=== PATIENT | male | born 1960 | race Caucasian/White ===

== ENCOUNTER 2020-05-18 14:28 | Emergency (ER) | payer MEDICARE, MEDICAID ==
[2020-05-18 14:36] VITALS: BP 164/84; PULSE 98
[2020-05-18] MEDS ORDERED: Aspirin 81 MG Tab.Chew PO ONE (14:39)
--- NOTE | 2020-05-18 14:44 | EDM.PDOC ---
ED HPI GENERAL MEDICAL PROBLEM - General Chief Complaint: Chest Pain Stated Complaint: [facility] Time Seen by Provider: 05/18/20 14:30 Source of Information: Reports: Patient (Very little history was obtained from the patient is all the answers were yes.), EMS, [facility] Records History Limitations: Reports: Altered Mental Status (And appears to have underlying dementia.) - History of Present Illness INITIAL COMMENTS - FREE TEXT/NARRATIVE: History suggest that approximately 35 minutes before arriving in the ED he developed or complained of central chest pain left precordial chest pain rating up into his neck and left upper extremity. The history was provided primarily by the nursing staff at the senior care not by the patient I could not get this history from the patient at this time. He still states that he still have some central chest pain. There is no history to suggest fever chills cough. Paramedics appreciated that he was diaphoretic particular with beads of perspiration on his forehead. ECG done by triage staff reveals sinus rhythm at 96/min with a first-degree AV block and minimally prolonged QTc interval but no signs of ischemia. Onset: Today, Sudden Onset Date: 05/18/20 Onset Time: 13:45 Duration: Minutes:, Other (Patient claims he still has discomfort on interrogation. However he claims that he has pain in his neck pain in his arm pain in his back as well.) Location: Reports: Chest (Reportedly complains of central chest pain radiation to his left upper extremity.) Quality: Reports: Ache Severity: Moderate Improves with: Reports: None Worsens with: Reports: None Context: Denies: Activity, Exercise, Sick Contact, Trauma, Other Associated Symptoms: Reports: Chest Pain, Diaphoresis. 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: IV/IO, Other (see below) (He has received no medications.) - Related Data Allergies Allergy/AdvReac Type Severity Reaction Status Date / Time acetaminophen [From Tylenol] Allergy Severe Facial Verified 05/18/20 14:36 Swelling Penicillins Allergy Severe Facial Verified 05/18/20 14:36 Swelling naproxen [From Aleve] Allergy Mild Cannot Verified 05/18/20 17:03 Remember Home Meds: Home Meds metFORMIN [Glucophage] 1,000 mg PO BID 10/26/16 [History] Losartan [Cozaar] 100 mg PO DAILY 01/24/19 [History] atorvaSTATin [Lipitor] 20 mg PO BEDTIME 01/26/19 [History] Aspirin [Adult Low Dose Aspirin EC] 81 mg PO DAILY 05/18/20 [History] Calcium Carbonate [Tums] 500 mg PO BID 05/18/20 [History] [place]/Min Oil/[place]/Wool Alcoh [Eucerin Creme] 1 applic TOP BID 05/18/20 [History] Cholecalciferol (Vitamin D3) [Vitamin D3] 1,000 unit PO DAILY 05/18/20 [History] Furosemide [Lasix] 20 mg PO DAILY 05/18/20 [History] Ibuprofen 600 mg PO Q6HR PRN 05/18/20 [History] Insulin Aspart [NovoLOG] 3 unit SQ TIDMEALS 05/18/20 [History] Insulin Detemir [Levemir] 20 unit SUBCUT DAILY 05/18/20 [History] LORazepam [Ativan] 0.5 mg PO BID 05/18/20 [History] Magnesium Hydroxide [Milk of Magnesia] 30 ml PO BEDTIME 05/18/20 [History] Melatonin 9 mg PO BEDTIME 05/18/20 [History] Mirtazapine [Remeron] 7.5 mg PO BEDTIME 05/18/20 [History] Multivit-Min/FA/Lycopen/Lutein [Certavite Sr with Lutein Tab] 1 each PO DAILY 05/18/20 [History] Pyrithione Zinc [Selsun Blue] 1 applic TP DAILY 05/18/20 [History] bisacodyL [Dulcolax] 5 mg PO BID 05/18/20 [History] levoFLOXacin [Levaquin] 500 mg PO DAILY #9 tab 05/18/20 [Rx] polyethylene glycoL 3350 [MiraLAX] 17 gm PO DAILY PRN 05/18/20 [History] risperiDONE [Risperdal] 3 mg PO BEDTIME 05/18/20 [History] Past Medical History HEENT History: Reports: None Cardiovascular History: Reports: Hypertension Respiratory History: Reports: None Gastrointestinal History: Reports: None Genitourinary History: Reports: None Musculoskeletal History: Reports: None Neurological History: Reports: None Psychiatric History: Reports: None Endocrine/Metabolic History: Reports: Diabetes, Type II (Trolled with Victoza, insulin and metformin and diet.) Hematologic History: Reports: None Immunologic History: Reports: None Oncologic (Cancer) History: Reports: None Dermatologic History: Reports: None - Infectious Disease History Infectious Disease History: Reports: Chicken Pox, Measles, Mumps - Past Surgical History Head Surgeries/Procedures: Reports: None HEENT Surgical History: Reports: None Cardiovascular Surgical History: Reports: None Respiratory Surgical History: Reports: None GI Surgical History: Reports: None Male Surgical History: Reports: None Endocrine Surgical History: Reports: None Neurological Surgical History: Reports: None Other Musculoskeletal Surgeries/Procedures:: ORIF of Right Foot. Brace in place Oncologic Surgical History: Reports: None Dermatological Surgical History: Reports: None Social & Family History - Family History Family Medical History: Noncontributory - Caffeine Use Caffeine Use: Reports: Soda - Living Situation & Occupation Living situation: Reports: with Family, Single Occupation: Disabled ED ROS GENERAL - Review of Systems Review Of Systems: Unable To Obtain Reason Not Obtained: History obtained from the patient is is a very poor quality he is Constitutional: Reports: Malaise, Weakness, Fatigue, Decreased Appetite. Denies: Fever, Chills, Weight Loss HEENT: Reports: No Symptoms Respiratory: Reports: Shortness of Breath. Denies: Wheezing, Pleuritic Chest Pain, Cough Cardiovascular: Reports: Chest Pain, Blood Pressure Problem. Denies: Claudication (See history of present illness), Dyspnea on Exertion, Edema, Lightheadedness, Orthopnea Endocrine: Reports: Fatigue GI/Abdominal: Reports: Constipation : Reports: Frequency Musculoskeletal: Reports: Back Pain, Joint Pain (Knees hips shoulders at times) Skin: Reports: Bruising (Injections of Victoza and insulin) Neurological: Reports: Confusion (Apparently has a history of dementia.) Psychiatric: Reports: Anxiety, Depression Hematologic/Lymphatic: Reports: No Symptoms Immunologic: Reports: No Symptoms ED EXAM, GENERAL - Physical Exam Exam: See Below Exam Limited By: Altered Mental Status (Patient appears confused and suffering from dementia. He does not answer any questions with any degree of reliability. Answers yes to almost all questions.) General Appearance: Alert, WD/WN, No Apparent Distress, Other (Mildly pallid but is diaphoretic on his forehead. No one has checked his blood sugar yet and he has a type II diabetic treated with Victoza and insulin and metformin.) Eye Exam: Bilateral Eye: Normal Inspection, PERRL Throat/Mouth: Normal Inspection, Normal Lips (1 is mildly dry and coated), Normal Oropharynx, Other. No: Normal Teeth Head: Atraumatic, Normocephalic Neck: Normal Inspection, Supple, Non-Tender, Full Range of Motion. No: Carotid Bruit, Lymphadenopathy (L) Respiratory/Chest: No Respiratory Distress, No Accessory Muscle Use, Decreased Breath Sounds (Decreased air entry lower 30% of lung beltran bilaterally. Mild dullness to percussion on both lower lobes suggesting perhaps mild pleural effusions.), Rales. No: Respiratory Distress, Rhonchi, Wheezing (Data rales both lung bases.) Cardiovascular: Regular Rate, Rhythm, No Gallop, No Murmur, No Rub. No: Normal Peripheral Pulses, No Edema Peripheral Pulses: 1+: Posterior Tibial (L) (Extremity pulses are limited by), Posterior Tibial (R), Dorsalis Pedis (L), Dorsalis Pedis (R), 2+: Carotid (L), Carotid (R) GI/Abdominal: Normal Bowel Sounds, Soft, Non-Tender, No Organomegaly, No Abnormal Bruit, No Mass, Pelvis Stable Back Exam: Normal Inspection, Full Range of Motion, Other (No surgical scars abrasions or contusions.). No: CVA Tenderness (L), CVA Tenderness (R) Extremities: Pedal Edema (He has 4+ pitting edema up past the knees bilaterally. Right leg is slightly worse than the left.), Other (Evidence of osteoarthritic changes in both knees both hips). No: Normal Range of Motion Neurological: CN II-XII Intact, No Motor/Sensory Deficits. No: Oriented, Normal Cognition Psychiatric: Flat Affect (Was all limbs.) Skin Exam: Warm, Dry, Intact, Pallor, Other (No pallor. Has beads of sweat on his forehead.) EKG INTERPRETATION EKG Date: 05/18/20 Time: 14:34 Rhythm: NSR Rate (Beats/Min): 96 [place]: Normal P-Wave: Present (With first-degree AV block) QT: Prolonged (Minimally prolonged) EKG Interpretation Comments: Borderline ECG. No signs of ischemia Course - Vital Signs Last Recorded V/S: Last Vital Signs Temp 36.6 C 05/18/20 14:31 Pulse 98 05/18/20 14:31 Resp 14 05/18/20 14:31 BP 164/84 H 05/18/20 14:31 Pulse Ox 98 05/18/20 14:31 - Orders/Labs/Meds Orders: Active Orders 24 hr Category Date Time Status Blood Glucose Check, Bedside [RC] ONETIME Care 05/18/20 14:47 Active Oxygen Therapy [RC] ASDIRECTED Care 05/18/20 14:41 Active Chest 1V Frontal [CR] Stat Exams 05/18/20 14:40 Taken CULTURE URINE [RM] Routine Lab 05/18/20 15:10 Received Sodium Chloride 0.9% [Normal Saline] 1,000 ml Med 05/18/20 14:45 Active IV ASDIRECTED Medication Orders Sodium Chloride (Normal Saline) 1,000 mls @ 125 mls/hr IV ASDIRECTED CHRIS Last Admin: 05/18/20 14:56 Dose: 125 mls/hr Documented by: ZARA Labs: Laboratory Tests 05/18/20 05/18/20 05/18/20 Range/Units 15:01 15:05 15:05 WBC 6.98 (4.23-9.07) K/mm3 RBC 4.27 L (4.63-6.08) M/mm3 Hgb 12.7 L (13.7-17.5) gm/dl Hct 40.2 (40.1-51.0) % MCV 94.1 H (79.0-92.2) fl MCH 29.7 (25.7-32.2) pg MCHC 31.6 L (32.2-35.5) g/dl RDW Std Deviation 44.3 H (35.1-43.9) fL Plt Count 223 (163-337) K/mm3 MPV 9.9 (9.4-12.3) fl Neut % (Auto) 76.4 H (34.0-67.9) % Lymph % (Auto) 14.3 L (21.8-53.1) % [place] % (Auto) 7.3 (5.3-12.2) % Eos % (Auto) 1.4 (0.8-7.0) Baso % (Auto) 0.3 (0.1-1.2) % Neut # (Auto) 5.33 (1.78-5.38) K/mm3 Lymph # (Auto) 1.00 L (1.32-3.57) K/mm3 [place] # (Auto) 0.51 (0.30-0.82) K/mm3 Eos # (Auto) 0.10 (0.04-0.54) K/mm3 Baso # (Auto) 0.02 (0.01-0.08) K/mm3 PT 11.1 (9.7-11.7) SECONDS INR 1.04 APTT 25 (22-31) SECONDS Sodium (136-145) mEq/L Potassium (3.5-5.1) mEq/L Chloride (98-107) mEq/L Carbon Dioxide (21-32) mEq/L Anion Gap (5-15) BUN (7-18) mg/dL Creatinine (0.7-1.3) mg/dL Est Cr Clr Drug Dosing mL/min Estimated GFR (MDRD) (>60) mL/min BUN/Creatinine Ratio (14-18) Glucose (74-106) mg/dL POC Glucose 166 H (70-105) mg/dL Calcium (8.5-10.1) mg/dL Magnesium (1.8-2.4) mg/dl Total Bilirubin (0.2-1.0) mg/dL AST (15-37) U/L ALT (16-63) U/L Alkaline Phosphatase (46-116) U/L CK-MB (CK-2) (0-3.6) ng/ml Troponin I (0.00-0.056) ng/mL C-Reactive Protein (<1.0) mg/dL NT-Pro-B Natriuret Pep (0-125) pg/mL Total Protein (6.4-8.2) g/dl Albumin (3.4-5.0) g/dl Globulin gm/dL Albumin/Globulin Ratio (1-2) Urine Color (Yellow) Urine Appearance (Clear) Urine pH (5.0-8.0) Ur Specific [place] (1.005-1.030) Urine Protein (Negative) Urine Glucose (UA) (Negative) Urine Ketones (Negative) Urine Occult Blood (Negative) Urine Nitrite (Negative) Urine Bilirubin (Negative) Urine Urobilinogen (0.2-1.0) Ur Leukocyte Esterase (Negative) Urine RBC (0-5) /hpf Urine WBC (0-5) /hpf Urine WBC Clumps (NOT SEEN) /hpf Ur Squamous Epith Cells (0-5) /hpf Urine Bacteria (FEW) /hpf Urine Mucus (FEW) /hpf SARS-CoV-2 RNA (CHRIS) (NEGATIVE) 05/18/20 05/18/20 05/18/20 Range/Units 15:05 15:05 15:12 WBC (4.23-9.07) K/mm3 RBC (4.63-6.08) M/mm3 Hgb (13.7-17.5) gm/dl Hct (40.1-51.0) % MCV (79.0-92.2) fl MCH (25.7-32.2) pg MCHC (32.2-35.5) g/dl RDW Std Deviation (35.1-43.9) fL Plt Count (163-337) K/mm3 MPV (9.4-12.3) fl Neut % (Auto) (34.0-67.9) % Lymph % (Auto) (21.8-53.1) % [place] % (Auto) (5.3-12.2) % Eos % (Auto) (0.8-7.0) Baso % (Auto) (0.1-1.2) % Neut # (Auto) (1.78-5.38) K/mm3 Lymph # (Auto) (1.32-3.57) K/mm3 [place] # (Auto) (0.30-0.82) K/mm3 Eos # (Auto) (0.04-0.54) K/mm3 Baso # (Auto) (0.01-0.08) K/mm3 PT (9.7-11.7) SECONDS INR APTT (22-31) SECONDS Sodium 139 (136-145) mEq/L Potassium 3.9 (3.5-5.1) mEq/L Chloride 100 (98-107) mEq/L Carbon Dioxide 27 (21-32) mEq/L Anion Gap 15.9 H (5-15) BUN 22 H (7-18) mg/dL Creatinine 0.9 (0.7-1.3) mg/dL Est Cr Clr Drug Dosing 95.80 mL/min Estimated GFR (MDRD) > 60 (>60) mL/min BUN/Creatinine Ratio 24.4 H (14-18) Glucose 192 H (74-106) mg/dL POC Glucose (70-105) mg/dL Calcium 8.6 (8.5-10.1) mg/dL Magnesium 1.9 (1.8-2.4) mg/dl Total Bilirubin 0.4 (0.2-1.0) mg/dL AST 16 (15-37) U/L ALT 27 (16-63) U/L Alkaline Phosphatase 77 (46-116) U/L CK-MB (CK-2) 1.2 (0-3.6) ng/ml Troponin I < 0.017 (0.00-0.056) ng/mL C-Reactive Protein < 0.2 (<1.0) mg/dL NT-Pro-B Natriuret Pep 59 (0-125) pg/mL Total Protein 7.8 (6.4-8.2) g/dl Albumin 3.7 (3.4-5.0) g/dl Globulin 4.1 gm/dL Albumin/Globulin Ratio 0.9 L (1-2) Urine Color Yellow (Yellow) Urine Appearance Cloudy H (Clear) Urine pH 7.5 (5.0-8.0) Ur Specific [place] 1.020 (1.005-1.030) Urine Protein Trace H (Negative) Urine Glucose (UA) Negative (Negative) Urine Ketones Negative (Negative) Urine Occult Blood Trace-intact H (Negative) Urine Nitrite Negative (Negative) Urine Bilirubin Negative (Negative) Urine Urobilinogen 0.2 (0.2-1.0) Ur Leukocyte Esterase 3+ H (Negative) Urine RBC 0-5 (0-5) /hpf Urine WBC >100 H (0-5) /hpf Urine WBC Clumps Few (NOT SEEN) /hpf Ur Squamous Epith Cells 0-5 (0-5) /hpf Urine Bacteria Few (FEW) /hpf Urine Mucus Few (FEW) /hpf SARS-CoV-2 RNA (CHRIS) (NEGATIVE) 05/18/20 Range/Units 15:12 WBC (4.23-9.07) K/mm3 RBC (4.63-6.08) M/mm3 Hgb (13.7-17.5) gm/dl Hct (40.1-51.0) % MCV (79.0-92.2) fl MCH (25.7-32.2) pg MCHC (32.2-35.5) g/dl RDW Std Deviation (35.1-43.9) fL Plt Count (163-337) K/mm3 MPV (9.4-12.3) fl Neut % (Auto) (34.0-67.9) % Lymph % (Auto) (21.8-53.1) % [place] % (Auto) (5.3-12.2) % Eos % (Auto) (0.8-7.0) Baso % (Auto) (0.1-1.2) % Neut # (Auto) (1.78-5.38) K/mm3 Lymph # (Auto) (1.32-3.57) K/mm3 [place] # (Auto) (0.30-0.82) K/mm3 Eos # (Auto) (0.04-0.54) K/mm3 Baso # (Auto) (0.01-0.08) K/mm3 PT (9.7-11.7) SECONDS INR APTT (22-31) SECONDS Sodium (136-145) mEq/L Potassium (3.5-5.1) mEq/L Chloride (98-107) mEq/L Carbon Dioxide (21-32) mEq/L Anion Gap (5-15) BUN (7-18) mg/dL Creatinine (0.7-1.3) mg/dL Est Cr Clr Drug Dosing mL/min Estimated GFR (MDRD) (>60) mL/min BUN/Creatinine Ratio (14-18) Glucose (74-106) mg/dL POC Glucose (70-105) mg/dL Calcium (8.5-10.1) mg/dL Magnesium (1.8-2.4) mg/dl Total Bilirubin (0.2-1.0) mg/dL AST (15-37) U/L ALT (16-63) U/L Alkaline Phosphatase (46-116) U/L CK-MB (CK-2) (0-3.6) ng/ml Troponin I (0.00-0.056) ng/mL C-Reactive Protein (<1.0) mg/dL NT-Pro-B Natriuret Pep (0-125) pg/mL Total Protein (6.4-8.2) g/dl Albumin (3.4-5.0) g/dl Globulin gm/dL Albumin/Globulin Ratio (1-2) Urine Color (Yellow) Urine Appearance (Clear) Urine pH (5.0-8.0) Ur Specific [place] (1.005-1.030) Urine Protein (Negative) Urine Glucose (UA) (Negative) Urine Ketones (Negative) Urine Occult Blood (Negative) Urine Nitrite (Negative) Urine Bilirubin (Negative) Urine Urobilinogen (0.2-1.0) Ur Leukocyte Esterase (Negative) Urine RBC (0-5) /hpf Urine WBC (0-5) /hpf Urine WBC Clumps (NOT SEEN) /hpf Ur Squamous Epith Cells (0-5) /hpf Urine Bacteria (FEW) /hpf Urine Mucus (FEW) /hpf SARS-CoV-2 RNA (CHRIS) Negative (NEGATIVE) Meds: Medications Generic Name Dose Route Start Last Admin Trade Name Raheel PRN Reason Stop Dose Admin Sodium Chloride 1,000 mls @ 125 mls/hr 05/18/20 14:45 05/18/20 14:56 Normal Saline IV 125 mls/hr ASDIRECTED CHRIS Administration Discontinued Medications Generic Name Dose Route Start Last Admin Trade Name Raheel PRN Reason Stop Dose Admin Aspirin 324 mg 05/18/20 14:39 05/18/20 14:56 Aspirin PO 05/18/20 14:40 324 mg ONETIME ONE Administration Nitroglycerin/Dextrose 25 mg in 250 mls @ 6 mls/hr 05/18/20 14:45 05/18/20 14:56 Nitroglycerin 25 Mg/D5w 250 Ml IV 10 mcg/min TITRATE CHRIS 6 mls/hr Administration Protocol 10 MCG/MIN Levofloxacin/Dextrose 750 mg/ 150 mls @ 100 mls/hr 05/18/20 16:47 05/18/20 17:04 Premix IV 05/18/20 18:16 100 mls/hr ONETIME ONE Administration - Radiology Interpretation Free Text/Narrative:: 60-year-old male sent across from [facility] for evaluation of reported central chest pain rating up into his left shoulder and down his left arm. Patient is a very poor historian and no significant information could be gleaned from the patient. He does have some beads of sweat on his forehead. He is an insulin-dependent diabetic no one has bothered to check his blood sugars. ECG does not show any signs of acute ischemic change. Plan he will have a chest x-ray routine labs including cardiac markers performed. IV is D5 normal saline at 125 mils per hour. Blood sugar to be checked at this time. He will not receive aspirin or nitroglycerin until I am convinced he is suffering any cardiac injury. - Re-Assessments/Exams Free Text/Narrative Re-Assessment/Exam: 05/18/20 15:23 rest x-ray reveals mildly hyperinflated lung beltran bilaterally. Perhaps a small right-sided pleural effusion evident. The left hemidiaphragm is more elevated than normal. Cardiac silhouette is normal. No pleural pulmonary infiltrates or pneumothorax evident. Bedside blood sugar was reportedly 166. 05/18/20 15:27White count is 6.98 with 76.4% neutrophils on the auto differential. Hemoglobin is 12.7 with hematocrit of 40.2. MCV is slightly elevated at 94.1. Platelet count normal at 223,000. 05/18/20 15:58 Sodium 139 with potassium 3.9. Chloride 100 with a bicarb of 27. Anion gap is 15.9. BUN is 22 with a creatinine of 0.9 and a GFR greater than 60. BUN/creatinine ratio is mildly elevated at 24.4 suggesting mild volume depletion. Glucose 192. It was 166 at the bedside. Calcium is 8.6 with a magnesium of 1.9. Liver function normal CK-MB fraction is 1.2. Troponin I is less than 0.017. C-reactive protein less than 0.2 total protein 7.8 with an albumin fraction of 3.7. Therefore no clinical evidence of myocardial infarction 05/18/20 16:23 Urinalysis came back showing cloudy urine with a trace of protein and a trace of occult blood leukocyte Estrace is 3+ positive. Micro is pending COVID-19 screen came back negative. 05/18/20 16:45 The microanalysis of the urinalysis shows 0-5 RBCs but greater than 100 blood cells per high-power field with white blood cell clumps. Urine will be sent for culture patient is allergic to penicillin with apparently a fairly significant reaction. He will therefore be placed on Levaquin 750 mg IV. 05/18/20 18:08 vital signs reveal BP 133/78. Heart rate is 108 and is sinus rythm. Oxygen O2 sats 95 to 96% on room air. Additively he will be discharged back to the senior care since it appears he will be able to keep down oral antibiotic therapy. He will be started on Levaquin 500 mg once daily for another 9 days. Departure - Departure Time of Disposition: 18:48 Disposition: Home, Self-Care 01 Reason for Transfer *Q: Other Condition: Fair Clinical Impression: Urinary tract infection after immobility Prescriptions: levoFLOXacin [Levaquin] 500 mg PO DAILY #9 tab Instructions: Urinary Tract Infection, Adult, [id number] Referrals: PCP,None [Primary Care Provider] - Forms: ED Department Discharge Additional Instructions: Evaluation in the emergency room today in regards to reported chest pain. However history is difficult to obtain as the patient says yes to all questions answered of him. This includes pain in his elbow and nape of his neck as well as his chest and arm. Investigations revealed no evidence of cardiac related illness. ECG was sinus with no signs of ischemia. However further investigations revealed he does have a significant urinary tract infection with greater than 1 greater than 100 white blood cells per high-power field suggesting upper urinary tract infection. Initial dose of antibiotics were Levaquin 750 mg given intravenously while in the ED. He is not clinically dehydrated. He is COVID-19 screen came back negative. Therefore he will be discharged back to the senior care with plans to continue oral antibiotic Levaquin 500 mg by mouth once daily at suppertime for the next 9 days to clear up urinary tract infection. Courage plenty of fluids. Diet as tolerated to new Tylenol 650 mg every 4-6 hours necessary for fever relief. Sepsis Event Note (ED) - Evaluation Sepsis Screening Result: No Definite Risk - Focused Exam Vital Signs: Vital Signs Temp Pulse Resp BP Pulse Ox 05/18/20 14:31 36.6 C 98 14 164/84 H 98 - My Orders Last 24 Hours: My Active Orders 05/18/20 14:40 Chest 1V Frontal [CR] Stat 05/18/20 14:41 Oxygen Therapy [RC] ASDIRECTED 05/18/20 14:45 Sodium Chloride 0.9% [Normal Saline] 1,000 ml IV ASDIRECTED 05/18/20 14:47 Blood Glucose Check, Bedside [RC] ONETIME 05/18/20 15:10 CULTURE URINE [RM] Routine - Assessment/Plan Last 24 Hours: My Active Orders 05/18/20 14:40 Chest 1V Frontal [CR] Stat 05/18/20 14:41 Oxygen Therapy [RC] ASDIRECTED 05/18/20 14:45 Sodium Chloride 0.9% [Normal Saline] 1,000 ml IV ASDIRECTED 05/18/20 14:47 Blood Glucose Check, Bedside [RC] ONETIME 05/18/20 15:10 CULTURE URINE [RM] Routine
[2020-05-18] MEDS ORDERED: Sodium Chloride 0.9% 1,000 ML IV SCH (14:45)
[2020-05-18] MEDS ORDERED: Nitroglycerin/D5W 25 MG/250 ML BOTTLE IV SCH (14:45)
[2020-05-18] MEDS ORDERED: Levofloxacin/Dextrose 5%-Water 750 MG in Premix Bag 1 BAG IV ONE (16:47)
== END 2020-05-18 19:22 | disposition home or self-care (01) ==
LOC: JD.ED 14:28
DX: N39.0 Urinary tract infection, site not specified (principal); I10 Essential (primary) hypertension; E11.9 Type 2 diabetes mellitus without complications; F03.90 Unspecified dementia, unspecified severity, without behavioral disturbance, psychotic disturbance, mood disturbance, and anxiety; Z20.828 Contact with and (suspected) exposure to other viral communicable diseases; Z88.6 Allergy status to analgesic agent; Z88.0 Allergy status to penicillin; Z79.82 Long term (current) use of aspirin; Z79.4 Long term (current) use of insulin; Z79.899 Other long term (current) drug therapy
CPT/HCPCS: 36415; 71045; 80053; 81001; 82553; 82962; 83735; 83880; 84484; 85025; 85610; 85730; 86140; 87086; 87088; 87181; 87184; 96365; 96366; 96367; 99285; A9270; J1956; J3490; J7030; U0002; 93010; 99284

== ENCOUNTER 2020-06-21 23:24 | Emergency (ER) | payer MEDICARE, MEDICAID ==
--- NOTE | 2020-06-21 23:49 | EDM.PDOC ---
ED HPI GENERAL MEDICAL PROBLEM - General Chief Complaint: Fever Stated Complaint: [facility] Time Seen by Provider: 06/21/20 23:34 Source of Information: Reports: Patient, Shelter Records, RN Notes Reviewed History Limitations: Reports: Altered Mental Status (minimal patient input) - History of Present Illness INITIAL COMMENTS - FREE TEXT/NARRATIVE: Mr. Vergara is a very pleasant 60-year-old gentleman who is now brought to the ED by EMS from [facility] psychiatric unit with a report of sudden onset of fever, tachycardia, and weakness, tonight. Unfortunately, the patient is essentially nonverbal, and cannot provide any meaningful information. We are notified that the patient has tested negative for the SARS-CoV-2 virus in the past, however, he was recently tested, with results still pending. We are notified that another resident at the patient's halfway has tested positive for the virus. Here in the ED, the patient is found to be tachycardic at 119 bpm, tachypneic at 29 rpm, febrile at 101.1 degrees, with an oxygen saturation of 91% on room air. Due to the patient's dementia, his review of systems is unobtainable. The patient's PCP is Dr. Hugh Pruett. - Related Data Allergies Allergy/AdvReac Type Severity Reaction Status Date / Time acetaminophen [From Tylenol] Allergy Severe Facial Verified 06/21/20 23:34 Swelling Penicillins Allergy Severe Facial Verified 06/21/20 23:34 Swelling naproxen [From Aleve] Allergy Mild Cannot Verified 06/21/20 23:34 Remember Home Meds: Home Meds metFORMIN [Glucophage] 1,000 mg PO BID 10/26/16 [History] Losartan [Cozaar] 100 mg PO DAILY 01/24/19 [History] atorvaSTATin [Lipitor] 20 mg PO BEDTIME 01/26/19 [History] Aspirin [Adult Low Dose Aspirin EC] 81 mg PO DAILY 05/18/20 [History] Calcium Carbonate [Tums] 500 mg PO BID 05/18/20 [History] [place]/Min Oil/Maria Esther/Wool Alcoh [Eucerin Creme] 1 applic TOP BID 05/18/20 [History] Cholecalciferol (Vitamin D3) [Vitamin D3] 1,000 unit PO DAILY 05/18/20 [History] Furosemide [Lasix] 20 mg PO DAILY 05/18/20 [History] Ibuprofen 600 mg PO Q6HR PRN 05/18/20 [History] Insulin Aspart [NovoLOG] 3 unit SQ TIDMEALS 05/18/20 [History] Insulin Detemir [Levemir] 20 unit SUBCUT DAILY 05/18/20 [History] LORazepam [Ativan] 0.5 mg PO TID 05/18/20 [History] Magnesium Hydroxide [Milk of Magnesia] 30 ml PO BEDTIME 05/18/20 [History] Melatonin 9 mg PO BEDTIME 05/18/20 [History] Mirtazapine [Remeron] 7.5 mg PO BEDTIME 05/18/20 [History] Multivit-Min/FA/Lycopen/Lutein [Certavite Sr with Lutein Tab] 1 each PO DAILY 05/18/20 [History] Pyrithione Zinc [Selsun Blue] 1 applic TP DAILY 05/18/20 [History] bisacodyL [Dulcolax] 5 mg PO BID 05/18/20 [History] polyethylene glycoL 3350 [MiraLAX] 17 gm PO DAILY PRN 05/18/20 [History] risperiDONE [Risperdal] 2 mg PO BID 05/18/20 [History] Past Medical History Cardiovascular History: Reports: High Cholesterol, Hypertension Neurological History: Reports: Alzheimers Disease Psychiatric History: Reports: Anxiety Endocrine/Metabolic History: Reports: Diabetes, Type II (Trolled with Victoza, insulin and metformin and diet.) - Infectious Disease History Infectious Disease History: Reports: Chicken Pox, Measles, Mumps - Past Surgical History Musculoskeletal Surgical History: Reports: ORIF (right foot) Social & Family History - Family History Family Medical History: No Pertinent Family History - Caffeine Use Caffeine Use: Reports: Soda - Living Situation & Occupation Living situation: Reports: Single, Extended Care Facility (Formerly [facility]) Occupation: Disabled ED ROS GENERAL - Review of Systems Review Of Systems: Unable To Obtain Reason Not Obtained: Dementia ED EXAM, GENERAL - Physical Exam Exam: See Below Exam Limited By: No Limitations General Appearance: WD/WN, No Apparent Distress, Lethargic (opens eyes when his name is called) Eye Exam: Bilateral Eye: EOMI, Normal Inspection Ears: Normal External Exam, Hearing Grossly Normal Nose: Normal Inspection Throat/Mouth: Normal Inspection, Normal Lips, No Airway Compromise Head: Atraumatic, Normocephalic Neck: Normal Inspection, Full Range of Motion. No: Lymphadenopathy (L), Lymphadenopathy (R) Respiratory/Chest: No Respiratory Distress, Lungs Clear, Normal Breath Sounds, No Accessory Muscle Use Cardiovascular: Normal Peripheral Pulses, No Gallop, No JVD, No Murmur, No Rub, Tachycardia (regular) Peripheral Pulses: 3+: Radial (L), Radial (R) GI/Abdominal: Normal Bowel Sounds, Soft, Non-Tender, No Organomegaly, No Distention, No Abnormal Bruit, No Mass Extremities: Normal Range of Motion, Normal Capillary Refill, Other (1-2+ pretibial pitting edema bilaterally) Neurological: No Motor/Sensory Deficits, Other (The patient opens his eyes when his name is called. He nodded "yes" and "no" to some questions, although did not speak to me. I believe he had spoken to Nora PEDROZA prior to my entering his room.) Skin Exam: Warm (feels febrile), Dry, Intact, Normal Color, No Rash #1 Interpretation EKG Date: 06/21/20 Time: 23:56 Rhythm: Other (Sinus tachycardia) Rate (Beats/Min): 113 [place]: Normal P-Wave: Present QRS: Other (Early transition) ST-T: Normal QT: Normal Comparison: No Change (05/18/2020) Course - Vital Signs Last Recorded V/S: Last Vital Signs Temp 38.4 C H 06/22/20 03:37 Pulse 112 H 06/22/20 03:37 Resp 18 06/22/20 03:37 BP 125/68 06/22/20 03:37 Pulse Ox 92 L 06/22/20 03:37 - Orders/Labs/Meds Orders: Active Orders 24 hr Category Date Time Status Chest 1V Frontal [CR] Stat Exams 06/21/20 23:36 Taken CULTURE BLOOD [BC] Stat Lab 06/21/20 23:42 Received CULTURE BLOOD [BC] Stat Lab 06/21/20 23:42 Received CULTURE URINE [RM] Stat Lab 06/22/20 01:20 Received Blood Culture x2 Reflex Set [OM.PC] Stat Oth 06/21/20 23:42 Ordered Isolation [COMM] Routine Oth 06/21/20 23:45 Ordered Labs: Laboratory Tests 11/05/3106/21/20 06/21/20 Range/Units 23:41 23:44 23:44 WBC 7.46 (4.23-9.07) K/mm3 RBC 4.09 L (4.63-6.08) M/mm3 Hgb 12.1 L (13.7-17.5) gm/dl Hct 38.1 L (40.1-51.0) % MCV 93.2 H (79.0-92.2) fl MCH 29.6 (25.7-32.2) pg MCHC 31.8 L (32.2-35.5) g/dl RDW Std Deviation 44.9 H (35.1-43.9) fL Plt Count 189 (163-337) K/mm3 MPV 9.7 (9.4-12.3) fl Neutrophils % (Manual) 83 H (40-60) % Band Neutrophils % 7 (0-10) % Lymphocytes % (Manual) 4 L (20-40) % Atypical Lymphs % 0 % Monocytes % (Manual) 6 (2-10) % Eosinophils % (Manual) 0 L (0.8-7.0) % Basophils % (Manual) 0 L (0.2-1.2) Platelet Estimate Adequate Plt Morphology Comment Normal RBC Morph Comment Normal ESR (0-15) mm/hr D-Dimer, Quantitative (0.19-0.50) mg/L Puncture Site Lt radial ABG pH 7.46 H (7.35-7.45) ABG pCO2 36.6 (35.0-45.0) mmHg ABG pO2 64.0 L (80.0-100.0) mmHg ABG HCO3 25.8 (22.0-26.0) meq/L ABG O2 Saturation 92.3 L (96.0-97.0) % ABG Base Excess 2.5 H (-2-2.0) A-a Gradient 40 mmHg O2 Delivery Device Room air Oxygen Flow Rate 0.0 FiO2 21.00 (21.00-100.00) % Sodium 138 (136-145) mEq/L Potassium 4.0 (3.5-5.1) mEq/L Chloride 101 (98-107) mEq/L Carbon Dioxide 27 (21-32) mEq/L Anion Gap 14.0 (5-15) BUN 21 H (7-18) mg/dL Creatinine 1.0 (0.7-1.3) mg/dL Est Cr Clr Drug Dosing 86.22 mL/min Estimated GFR (MDRD) > 60 (>60) mL/min BUN/Creatinine Ratio 21.0 H (14-18) Glucose 141 H (74-106) mg/dL Lactic Acid (0.4-2.0) mmol/L Calcium 9.3 (8.5-10.1) mg/dL Magnesium 2.1 (1.8-2.4) mg/dl Total Bilirubin 0.5 (0.2-1.0) mg/dL AST 16 (15-37) U/L ALT 21 (16-63) U/L Alkaline Phosphatase 74 (46-116) U/L Troponin I < 0.017 (0.00-0.056) ng/mL C-Reactive Protein 2.8 H* (<1.0) mg/dL Total Protein 7.7 (6.4-8.2) g/dl Albumin 3.8 (3.4-5.0) g/dl Globulin 3.9 gm/dL Albumin/Globulin Ratio 1.0 (1-2) Urine Color (Yellow) Urine Appearance (Clear) Urine pH (5.0-8.0) Ur Specific [place] (1.005-1.030) Urine Protein (Negative) Urine Glucose (UA) (Negative) Urine Ketones (Negative) Urine Occult Blood (Negative) Urine Nitrite (Negative) Urine Bilirubin (Negative) Urine Urobilinogen (0.2-1.0) Ur Leukocyte Esterase (Negative) Urine RBC (0-5) /hpf Urine WBC (0-5) /hpf Ur Epithelial Cells (0-5) /hpf Urine Bacteria (FEW) /hpf Urine Mucus (FEW) /hpf SARS-CoV-2 RNA (CHRIS) (NEGATIVE) 06/21/20 06/21/20 06/21/20 Range/Units 23:44 23:44 23:44 WBC (4.23-9.07) K/mm3 RBC (4.63-6.08) M/mm3 Hgb (13.7-17.5) gm/dl Hct (40.1-51.0) % MCV (79.0-92.2) fl MCH (25.7-32.2) pg MCHC (32.2-35.5) g/dl RDW Std Deviation (35.1-43.9) fL Plt Count (163-337) K/mm3 MPV (9.4-12.3) fl Neutrophils % (Manual) (40-60) % Band Neutrophils % (0-10) % Lymphocytes % (Manual) (20-40) % Atypical Lymphs % % Monocytes % (Manual) (2-10) % Eosinophils % (Manual) (0.8-7.0) % Basophils % (Manual) (0.2-1.2) Platelet Estimate Plt Morphology Comment RBC Morph Comment ESR 14 (0-15) mm/hr D-Dimer, Quantitative 0.44 (0.19-0.50) mg/L Puncture Site ABG pH (7.35-7.45) ABG pCO2 (35.0-45.0) mmHg ABG pO2 (80.0-100.0) mmHg ABG HCO3 (22.0-26.0) meq/L ABG O2 Saturation (96.0-97.0) % ABG Base Excess (-2-2.0) A-a Gradient mmHg O2 Delivery Device Oxygen Flow Rate FiO2 (21.00-100.00) % Sodium (136-145) mEq/L Potassium (3.5-5.1) mEq/L Chloride (98-107) mEq/L Carbon Dioxide (21-32) mEq/L Anion Gap (5-15) BUN (7-18) mg/dL Creatinine (0.7-1.3) mg/dL Est Cr Clr Drug Dosing mL/min Estimated GFR (MDRD) (>60) mL/min BUN/Creatinine Ratio (14-18) Glucose (74-106) mg/dL Lactic Acid 2.5 H* (0.4-2.0) mmol/L Calcium (8.5-10.1) mg/dL Magnesium (1.8-2.4) mg/dl Total Bilirubin (0.2-1.0) mg/dL AST (15-37) U/L ALT (16-63) U/L Alkaline Phosphatase (46-116) U/L Troponin I (0.00-0.056) ng/mL C-Reactive Protein (<1.0) mg/dL Total Protein (6.4-8.2) g/dl Albumin (3.4-5.0) g/dl Globulin gm/dL Albumin/Globulin Ratio (1-2) Urine Color (Yellow) Urine Appearance (Clear) Urine pH (5.0-8.0) Ur Specific [place] (1.005-1.030) Urine Protein (Negative) Urine Glucose (UA) (Negative) Urine Ketones (Negative) Urine Occult Blood (Negative) Urine Nitrite (Negative) Urine Bilirubin (Negative) Urine Urobilinogen (0.2-1.0) Ur Leukocyte Esterase (Negative) Urine RBC (0-5) /hpf Urine WBC (0-5) /hpf Ur Epithelial Cells (0-5) /hpf Urine Bacteria (FEW) /hpf Urine Mucus (FEW) /hpf SARS-CoV-2 RNA (CHRIS) (NEGATIVE) 06/22/20 06/22/20 Range/Units 00:20 01:24 WBC (4.23-9.07) K/mm3 RBC (4.63-6.08) M/mm3 Hgb (13.7-17.5) gm/dl Hct (40.1-51.0) % MCV (79.0-92.2) fl MCH (25.7-32.2) pg MCHC (32.2-35.5) g/dl RDW Std Deviation (35.1-43.9) fL Plt Count (163-337) K/mm3 MPV (9.4-12.3) fl Neutrophils % (Manual) (40-60) % Band Neutrophils % (0-10) % Lymphocytes % (Manual) (20-40) % Atypical Lymphs % % Monocytes % (Manual) (2-10) % Eosinophils % (Manual) (0.8-7.0) % Basophils % (Manual) (0.2-1.2) Platelet Estimate Plt Morphology Comment RBC Morph Comment ESR (0-15) mm/hr D-Dimer, Quantitative (0.19-0.50) mg/L Puncture Site ABG pH (7.35-7.45) ABG pCO2 (35.0-45.0) mmHg ABG pO2 (80.0-100.0) mmHg ABG HCO3 (22.0-26.0) meq/L ABG O2 Saturation (96.0-97.0) % ABG Base Excess (-2-2.0) A-a Gradient mmHg O2 Delivery Device Oxygen Flow Rate FiO2 (21.00-100.00) % Sodium (136-145) mEq/L Potassium (3.5-5.1) mEq/L Chloride (98-107) mEq/L Carbon Dioxide (21-32) mEq/L Anion Gap (5-15) BUN (7-18) mg/dL Creatinine (0.7-1.3) mg/dL Est Cr Clr Drug Dosing mL/min Estimated GFR (MDRD) (>60) mL/min BUN/Creatinine Ratio (14-18) Glucose (74-106) mg/dL Lactic Acid (0.4-2.0) mmol/L Calcium (8.5-10.1) mg/dL Magnesium (1.8-2.4) mg/dl Total Bilirubin (0.2-1.0) mg/dL AST (15-37) U/L ALT (16-63) U/L Alkaline Phosphatase (46-116) U/L Troponin I (0.00-0.056) ng/mL C-Reactive Protein (<1.0) mg/dL Total Protein (6.4-8.2) g/dl Albumin (3.4-5.0) g/dl Globulin gm/dL Albumin/Globulin Ratio (1-2) Urine Color Yellow (Yellow) Urine Appearance Clear (Clear) Urine pH 7.0 (5.0-8.0) Ur Specific [place] 1.025 (1.005-1.030) Urine Protein Negative (Negative) Urine Glucose (UA) Negative (Negative) Urine Ketones 1+ H (Negative) Urine Occult Blood Trace-intact H (Negative) Urine Nitrite Negative (Negative) Urine Bilirubin Negative (Negative) Urine Urobilinogen 1.0 (0.2-1.0) Ur Leukocyte Esterase 1+ H (Negative) Urine RBC 5-10 H (0-5) /hpf Urine WBC 10-20 H (0-5) /hpf Ur Epithelial Cells Not seen (0-5) /hpf Urine Bacteria Moderate H (FEW) /hpf Urine Mucus Many H (FEW) /hpf SARS-CoV-2 RNA (CHRIS) Positive H (NEGATIVE) Meds: Medications Discontinued Medications Generic Name Dose Route Start Last Admin Trade Name Freq PRN Reason Stop Dose Admin Ceftriaxone Sodium 1 gm/ 100 mls @ 200 mls/hr 06/22/20 01:54 06/22/20 03:23 Sodium Chloride IV 06/22/20 02:23 200 mls/hr ONETIME STA Administration - Re-Assessments/Exams Free Text/Narrative Re-Assessment/Exam: 06/21/20 23:44 As above, the patient was sent from [facility] unit due to sudden onset fever, tachycardia, and weakness tonight. His nurse noted that he has a slight cough here in the ED. He is found to be tachycardic, tachypneic, febrile, with an oxygen saturation of 91% on room air. We [facility] for [facility]-19, and all of the patient's current symptoms are very concerning for that. His physical exam, while limited by lack of patient input, is grossly unremarkable. I have ordered a work-up that includes blood work, 2 sets of blood cultures, an ABG, a urinalysis by quick catheter, an influenza swab, a swab for the macro SARS, a portable chest x-ray, and an ECG. Ordinarily, I would give a bolus of IV fluid, however, if the patient does in fact have COVID-19, we will need to be judicious with the IV fluid. 06/22/20 01:41 Portable chest x-ray is read by vRobey as: 1. Left lower lung pulmonary nodule. If long-term stability cannot be established with prior imaging consider follow-up CT. 2. No acute disease. 06/22/20 01:50 The patient's CBC is remarkable for a H/H slightly depressed at 12.1/38.1, with the remainder of his CBC being unremarkable. His CMP is remarkable for a BUN slightly elevated 21, with a Cr normal at 1.0, and a blood glucose mildly elevated at 141, with the remainder of his CMP being unremarkable. His magnesium level is within normal limits at 2.1. His lactic acid level is mildly elevated at 2.5. His CRP is mildly elevated at 2.8. His troponin is undetectably low. His D-dimer is within normal limits at 0.44. His urinalysis is remarkable for trace occult blood with 5-10 RBCs, 1+ leukocyte esterase with 10-20 WBCs, nitrate negative with moderate bacteria, and no squamous epithelial cells. His ABG represents a primary respiratory alkalosis with combined secondary metabolic alkalosis. His influenza swab returned negative. His swab for the SARS-CoV-2 virus returned positive. Based on the above, I have ordered a urine culture, and will start the patient on IV Rocephin, since I am not satisfied he will be able to take oral medication adequately at this time. At this time, the patient does not meet criterion for treatment with remdesivir, convalescent plasma, or dexamethasone. 06/22/20 02:52 Notified by Nora PEDROZA that [facility] is willing to take the patient back. The patient has been getting out of bed and walking around. Departure - Departure Time of Disposition: 02:55 Disposition: Home, Self-Care 01 Condition: Good Clinical Impression: COVID-19, UTI (urinary tract infection) - Discharge Information *PRESCRIPTION DRUG MONITORING PROGRAM REVIEWED*: Not Applicable *COPY OF PRESCRIPTION DRUG MONITORING REPORT IN PATIENT SKYE: Not Applicable Referrals: Hugh Pruett MD [Primary Care Provider] - Forms: ED Department Discharge Additional Instructions: Mr. Vergara was seen in the emergency room after developing a fever, elevated heart rate, and generalized weakness tonight. Work-up in the ER included blood work, 2 sets of blood cultures, an arterial blood gas, a urinalysis, a swab for influenza, a swab for the SARS-CoV-2 virus, a chest x-ray, and an ECG. His urinalysis indicates a possible urinary tract infection. A urine culture was sent, and he was started on the antibiotic Rocephin. A prescription for the antibiotic nitrofurantoin has been provided. He should be given 1 tablet of nitrofurantoin every 12 hours, for 5 days, as prescribed. We recommend that someone contact the office of his PCP, Dr. Hugh Pruett, this coming 06/24/2020, to check on the urine culture results, to make sure that he is on the correct antibiotic. Mr. Vergara's swab for the SARS-CoV-2 virus returned positive, indicating that he has COVID-19. The remainder of Mr. Vergara's work-up was unremarkable. Mr. Vergara needs to be strictly quarantined until he tests negative for the virus, twice. At present, Mr. Vergara does not meet criterion for treatment for COVID-19, however, if his condition declines, in particular, if his oxygen saturation drops below 90%, please return him to the ER for reevaluation. Sepsis Event Note (ED) - Evaluation Sepsis Screening Result: Possible Sepsis Risk - Focused Exam Vital Signs: Vital Signs Temp Pulse Resp BP Pulse Ox 06/22/20 03:37 38.4 C H 112 H 18 125/68 92 L 06/21/20 23:29 38.4 C H 119 H 29 H 122/73 91 L - My Orders Last 24 Hours: My Active Orders 06/21/20 23:36 Chest 1V Frontal [CR] Stat 06/21/20 23:42 CULTURE BLOOD [BC] Stat CULTURE BLOOD [BC] Stat Blood Culture x2 Reflex Set [OM.PC] Stat 06/21/20 23:45 Isolation [COMM] Routine 06/22/20 01:20 CULTURE URINE [RM] Stat - Assessment/Plan Last 24 Hours: My Active Orders 06/21/20 23:36 Chest 1V Frontal [CR] Stat 06/21/20 23:42 CULTURE BLOOD [BC] Stat CULTURE BLOOD [BC] Stat Blood Culture x2 Reflex Set [OM.PC] Stat 06/21/20 23:45 Isolation [COMM] Routine 06/22/20 01:20 CULTURE URINE [RM] Stat
[2020-06-22] MEDS ORDERED: cefTRIAXone 1 GM in Sodium Chloride 0.9% 100 ML IV STA ×2 (01:49→01:54)
[2020-06-22 03:41] VITALS: BP 125/68; PULSE 112
--- NOTE | 2020-06-22 08:49 | CR ---
PROCEDURE INFORMATION: Exam: XR Chest, 1 View Exam date and time: 06/22/2020 12:14 AM Age: 60 years old Clinical indication: Generalized weakness, cough TECHNIQUE: Imaging protocol: XR of the chest Views: 1 view. COMPARISON: CR Chest 1V Frontal 05/18/2020 2:29 PM FINDINGS: Small left lower lung nodule seen on the comparison examination is partially obscured by overlying monitoring leads. Lungs are otherwise clear. No evidence of pneumothorax or pleural effusion. There is mild pleural thickening at the lung apices. Cardiomediastinal silhouette is within normal limits. Osseous structures appear intact. IMPRESSION: 1. Left lower lung pulmonary nodule. If superintendent terminal stability cannot be established with prior imaging consider follow-up CT. 2. No acute disease. Thank you for allowing us to participate in the care of your patient. Dictated and Authenticated by: Dougie Smith MD 06/22/2020 2:39 AM Central Time ([place] & [place]) [facility]
== END 2020-06-22 04:00 | disposition home or self-care (01) ==
LOC: JD.ED 23:24
DX: U07.1 COVID-19 (principal); N39.0 Urinary tract infection, site not specified; E78.00 Pure hypercholesterolemia, unspecified; I10 Essential (primary) hypertension; G30.9 Alzheimer's disease, unspecified; F02.80 Dementia in other diseases classified elsewhere, unspecified severity, without behavioral disturbance, psychotic disturbance, mood disturbance, and anxiety; F41.9 Anxiety disorder, unspecified; E11.9 Type 2 diabetes mellitus without complications; Z88.6 Allergy status to analgesic agent; Z88.0 Allergy status to penicillin; Z88.8 Allergy status to other drugs, medicaments and biological substances; Z79.82 Long term (current) use of aspirin; Z79.4 Long term (current) use of insulin; Z79.899 Other long term (current) drug therapy
CPT/HCPCS: 36415; 36600; 71045; 80053; 81001; 82803; 83605; 83735; 84484; 85007; 85027; 85379; 85652; 86140; 87040; 87086; 87088; 87181; 87184; 87804; 93005; 96365; 99285; J0696; J7050; U0002; 93010; 99283

== ENCOUNTER 2020-07-18 13:43 | Emergency (ER) | payer MEDICARE, MEDICAID ==
[2020-07-18] MEDS ORDERED: Sodium Chloride 0.9% 10 ML Syringe FLUSH PRN (14:12)
[2020-07-18] MEDS ORDERED: Sodium Chloride 0.9% 1,000 ML IV SCH (14:15)
--- NOTE | 2020-07-18 17:08 | EDM.PDOC ---
ED HPI GENERAL MEDICAL PROBLEM - General Chief Complaint: Gastrointestinal Problem Stated Complaint: [facility] Time Seen by Provider: 07/18/20 13:58 Source of Information: Reports: Patient, RN Notes Reviewed - History of Present Illness INITIAL COMMENTS - FREE TEXT/NARRATIVE: 60 yr old [place] patient about 10 to 12 days post covid diagnosed almost 4 wks ago. He had been sent to the [facility] [place] [facility], now back at [facility]. Reported to not be eating or drinking well. 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 Pt not talking at time of my exam. There is no hx of recent fever, vomting or diarrhea. Was noted to have fast heart rate in the 120's today at the [place]. - Related Data Allergies Allergy/AdvReac Type Severity Reaction Status Date / Time acetaminophen [From Tylenol] Allergy Severe Facial Verified 07/18/20 14:25 Swelling Penicillins Allergy Severe Facial Verified 07/18/20 14:25 Swelling naproxen [From Aleve] Allergy Mild Cannot Verified 07/18/20 14:25 Remember Home Meds: Home Meds metFORMIN [Glucophage] 1,000 mg PO BID 10/26/16 [History] Losartan [Cozaar] 100 mg PO DAILY 01/24/19 [History] atorvaSTATin [Lipitor] 20 mg PO BEDTIME 01/26/19 [History] Aspirin [Adult Low Dose Aspirin EC] 81 mg PO DAILY 05/18/20 [History] Calcium Carbonate [Tums] 500 mg PO BID 05/18/20 [History] [place]/Min Oil/Maria Esther/Wool Alcoh [Eucerin Creme] 1 applic TOP BID 05/18/20 [History] Cholecalciferol (Vitamin D3) [Vitamin D3] 1,000 unit PO DAILY 05/18/20 [History] Furosemide [Lasix] 20 mg PO DAILY 05/18/20 [History] Ibuprofen 600 mg PO Q6HR PRN 05/18/20 [History] Insulin Aspart [NovoLOG] 3 unit SQ TIDMEALS 05/18/20 [History] Insulin Detemir [Levemir] 20 unit SUBCUT DAILY 05/18/20 [History] LORazepam [Ativan] 0.5 mg PO TID 05/18/20 [History] Magnesium Hydroxide [Milk of Magnesia] 30 ml PO BEDTIME 05/18/20 [History] Melatonin 9 mg PO BEDTIME 05/18/20 [History] Mirtazapine [Remeron] 7.5 mg PO BEDTIME 05/18/20 [History] Multivit-Min/FA/Lycopen/Lutein [Certavite Sr with Lutein Tab] 1 each PO DAILY 05/18/20 [History] Pyrithione Zinc [Selsun Blue] 1 applic TP DAILY 05/18/20 [History] bisacodyL [Dulcolax] 5 mg PO BID 05/18/20 [History] polyethylene glycoL 3350 [MiraLAX] 17 gm PO DAILY PRN 05/18/20 [History] risperiDONE [Risperdal] 2 mg PO BID 05/18/20 [History] Ipratropium/Albuterol Sulfate [Iprat-Albut 0.5-3(2.5) MG/3 ML] 1 inhalation INH QID 07/18/20 [History] Past Medical History HEENT History: Reports: None Cardiovascular History: Reports: High Cholesterol, Hypertension Respiratory History: Reports: Other (See Below) Other Respiratory History: acute respiratory disease (+ COVID) Gastrointestinal History: Reports: None Other Gastrointestinal History: polyphagia Genitourinary History: Reports: None Musculoskeletal History: Reports: None Neurological History: Reports: Alzheimers Disease, Other (See Below) Other Neuro History: restlessness/agitation Psychiatric History: Reports: Anxiety Endocrine/Metabolic History: Reports: Diabetes, Type II Hematologic History: Reports: None Immunologic History: Reports: None Oncologic (Cancer) History: Reports: None Dermatologic History: Reports: None - Infectious Disease History Infectious Disease History: Reports: Chicken Pox, Measles, Mumps, Novel Coronavirus - Past Surgical History Musculoskeletal Surgical History: Reports: ORIF Other Musculoskeletal Surgeries/Procedures:: ORIF of Right Foot. Brace in place Dermatological Surgical History: Reports: None Social & Family History - Family History Family Medical History: No Pertinent Family History - Tobacco Use Tobacco Use Status *Q: Never Tobacco User Second Hand Smoke Exposure: No - Caffeine Use Caffeine Use: Reports: None - Recreational Drug Use Recreational Drug Use: No - Living Situation & Occupation Living situation: Reports: Single, Extended Care Facility ([facility]) Occupation: Disabled ED ROS GENERAL - Review of Systems Review Of Systems: Unable To Obtain Reason Not Obtained: Pt sleeping soundly, not talking at time of my exam. ED EXAM, GENERAL - Physical Exam Exam: See Below Exam Limited By: Altered Mental Status General Appearance: Other (sleeping soundly at time of my exam, was awake at time of arrival to ED and triage) Head: Atraumatic Neck: Other (No JVD) Respiratory/Chest: No Respiratory Distress, Lungs Clear, Normal Breath Sounds. No: Rhonchi, Wheezing Cardiovascular: Tachycardia GI/Abdominal: Soft, Non-Tender Extremities: Normal Inspection. No: Pedal Edema, Leg Pain, Increased Warmth, Redness Neurological: Other (sleeping soundly at time of my exam) Skin Exam: Warm, Dry, No Rash Course - Vital Signs Last Recorded V/S: Last Vital Signs Temp 96.9 F 07/18/20 13:45 Pulse 126 H 07/18/20 13:45 Resp 23 H 07/18/20 13:45 BP 108/67 07/18/20 13:45 Pulse Ox 95 07/18/20 13:45 - Orders/Labs/Meds Orders: Active Orders 24 hr Category Date Time Status EKG 12 Lead [EKG Documentation Completion] [RC] STAT Care 07/18/20 14:12 Active Peripheral IV Care [RC] . DIRECTED Care 07/18/20 14:12 Active Chest 1V Frontal [CR] Stat Exams 07/18/20 14:11 Taken TSH [CHEM] Stat Lab 07/18/20 14:30 Received Sodium Chloride 0.9% [Normal Saline] 1,000 ml Med 07/18/20 14:15 Active IV ONETIME Sodium Chloride 0.9% [Saline Flush] Med 07/18/20 14:12 Active 10 ml FLUSH ASDIRECTED PRN Peripheral IV Insertion Adult [OM.PC] Stat Oth 07/18/20 14:12 Ordered Medication Orders Sodium Chloride (Normal Saline) 1,000 mls @ 999 mls/hr IV ONETIME CHRIS Last Admin: 07/18/20 14:20 Dose: 999 mls/hr Documented by: FAWN Sodium Chloride (Saline Flush) 10 ml FLUSH ASDIRECTED PRN PRN Reason: Keep Vein Open Last Admin: 07/18/20 14:20 Dose: 10 ml Documented by: FAWN Labs: Laboratory Tests 07/18/20 07/18/20 07/18/20 Range/Units 14:30 14:30 14:30 WBC 7.10 (4.23-9.07) K/mm3 RBC 4.11 L (4.63-6.08) M/mm3 Hgb 12.0 L (13.7-17.5) gm/dl Hct 38.2 L (40.1-51.0) % MCV 92.9 H (79.0-92.2) fl MCH 29.2 (25.7-32.2) pg MCHC 31.4 L (32.2-35.5) g/dl RDW Std Deviation 45.5 H (35.1-43.9) fL Plt Count 199 (163-337) K/mm3 MPV 9.5 (9.4-12.3) fl Neut % (Auto) 71.6 H (34.0-67.9) % Lymph % (Auto) 15.1 L (21.8-53.1) % Green % (Auto) 10.8 (5.3-12.2) % Eos % (Auto) 1.8 (0.8-7.0) Baso % (Auto) 0.3 (0.1-1.2) % Neut # (Auto) 5.08 (1.78-5.38) K/mm3 Lymph # (Auto) 1.07 L (1.32-3.57) K/mm3 Green # (Auto) 0.77 (0.30-0.82) K/mm3 Eos # (Auto) 0.13 (0.04-0.54) K/mm3 Baso # (Auto) 0.02 (0.01-0.08) K/mm3 D-Dimer, Quantitative (0.19-0.50) mg/L Sodium 137 (136-145) mEq/L Potassium 4.4 (3.5-5.1) mEq/L Chloride 101 (98-107) mEq/L Carbon Dioxide 26 (21-32) mEq/L Anion Gap 14.4 (5-15) BUN 17 (7-18) mg/dL Creatinine 0.9 (0.7-1.3) mg/dL Est Cr Clr Drug Dosing 95.80 mL/min Estimated GFR (MDRD) > 60 (>60) mL/min BUN/Creatinine Ratio 18.9 H (14-18) Glucose 153 H (74-106) mg/dL Calcium 8.7 (8.5-10.1) mg/dL Total Bilirubin 0.5 (0.2-1.0) mg/dL AST 16 (15-37) U/L ALT 28 (16-63) U/L Alkaline Phosphatase 85 (46-116) U/L Troponin I < 0.017 (0.00-0.056) ng/mL C-Reactive Protein 3.0 H* (<1.0) mg/dL NT-Pro-B Natriuret Pep (0-125) pg/mL Total Protein 7.2 (6.4-8.2) g/dl Albumin 2.7 L (3.4-5.0) g/dl Globulin 4.5 gm/dL Albumin/Globulin Ratio 0.6 L (1-2) 07/18/20 07/18/20 Range/Units 14:30 14:30 WBC (4.23-9.07) K/mm3 RBC (4.63-6.08) M/mm3 Hgb (13.7-17.5) gm/dl Hct (40.1-51.0) % MCV (79.0-92.2) fl MCH (25.7-32.2) pg MCHC (32.2-35.5) g/dl RDW Std Deviation (35.1-43.9) fL Plt Count (163-337) K/mm3 MPV (9.4-12.3) fl Neut % (Auto) (34.0-67.9) % Lymph % (Auto) (21.8-53.1) % Green % (Auto) (5.3-12.2) % Eos % (Auto) (0.8-7.0) Baso % (Auto) (0.1-1.2) % Neut # (Auto) (1.78-5.38) K/mm3 Lymph # (Auto) (1.32-3.57) K/mm3 Green # (Auto) (0.30-0.82) K/mm3 Eos # (Auto) (0.04-0.54) K/mm3 Baso # (Auto) (0.01-0.08) K/mm3 D-Dimer, Quantitative 1.68 H (0.19-0.50) mg/L Sodium (136-145) mEq/L Potassium (3.5-5.1) mEq/L Chloride (98-107) mEq/L Carbon Dioxide (21-32) mEq/L Anion Gap (5-15) BUN (7-18) mg/dL Creatinine (0.7-1.3) mg/dL Est Cr Clr Drug Dosing mL/min Estimated GFR (MDRD) (>60) mL/min BUN/Creatinine Ratio (14-18) Glucose (74-106) mg/dL Calcium (8.5-10.1) mg/dL Total Bilirubin (0.2-1.0) mg/dL AST (15-37) U/L ALT (16-63) U/L Alkaline Phosphatase (46-116) U/L Troponin I (0.00-0.056) ng/mL C-Reactive Protein (<1.0) mg/dL NT-Pro-B Natriuret Pep 67 (0-125) pg/mL Total Protein (6.4-8.2) g/dl Albumin (3.4-5.0) g/dl Globulin gm/dL Albumin/Globulin Ratio (1-2) Meds: Medications Generic Name Dose Route Start Last Admin Trade Name Freq PRN Reason Stop Dose Admin Sodium Chloride 1,000 mls @ 999 mls/hr 07/18/20 14:15 07/18/20 14:20 Normal Saline IV 999 mls/hr ONETIME CHRIS Administration Sodium Chloride 10 ml 07/18/20 14:12 07/18/20 14:20 Saline Flush FLUSH 10 ml ASDIRECTED PRN Administration Keep Vein Open Departure - Departure Time of Disposition: 17:03 Disposition: Home, Self-Care 01 Condition: Fair Clinical Impression: Anorexia, Tachycardia Alzheimers disease Qualifiers: Alzheimer's disease onset: unspecified onset Dementia behavioral disturbance: without behavioral disturbance Qualified Code(s): G30.9 - Alzheimer's disease, unspecified - Discharge Information Referrals: Hugh Pruett MD [Primary Care Provider] - Forms: ED Department Discharge Additional Instructions: Labs checked today look OK for being about 2 weeks post covid. He was given 1 liter NS and with that heart rate came domw into the 70's and 80's. Continue current care. Return to ED as needed. Sepsis Event Note (ED) - Evaluation Sepsis Screening Result: No Definite Risk - Focused Exam Vital Signs: Vital Signs Temp Pulse Resp BP Pulse Ox 07/18/20 13:45 96.9 F 126 H 23 H 108/67 95 - My Orders Last 24 Hours: My Active Orders 07/18/20 14:11 Chest 1V Frontal [CR] Stat 07/18/20 14:12 EKG 12 Lead [EKG Documentation Completion] [RC] STAT Peripheral IV Care [RC] . DIRECTED Sodium Chloride 0.9% [Saline Flush] 10 ml FLUSH ASDIRECTED PRN Peripheral IV Insertion Adult [OM.PC] Stat 07/18/20 14:15 Sodium Chloride 0.9% [Normal Saline] 1,000 ml IV ONETIME 07/18/20 14:30 TSH [CHEM] Stat - Assessment/Plan Last 24 Hours: My Active Orders 07/18/20 14:11 Chest 1V Frontal [CR] Stat 07/18/20 14:12 EKG 12 Lead [EKG Documentation Completion] [RC] STAT Peripheral IV Care [RC] . DIRECTED Sodium Chloride 0.9% [Saline Flush] 10 ml FLUSH ASDIRECTED PRN Peripheral IV Insertion Adult [OM.PC] Stat 07/18/20 14:15 Sodium Chloride 0.9% [Normal Saline] 1,000 ml IV ONETIME 07/18/20 14:30 TSH [CHEM] Stat
[2020-07-18 17:33] VITALS: BP 99/58; PULSE 78
--- NOTE | 2020-07-19 08:41 | CR ---
Chest: Portable view of the chest was obtained. Comparison: No prior chest x-ray. Findings: Heart size and mediastinum: Within normal limits. No mediastinal mass is seen. Lungs: Increased lung markings are seen on both sides of the chest. No additional abnormality is seen. Osseous: Old healed fracture is seen within the left clavicle. No acute osseous finding is seen. Impression: 1. Mild interstitial change within both lungs most likely representing mild COVID pneumonia. Diagnostic code #3
== END 2020-07-18 17:48 | disposition home or self-care (01) ==
LOC: JD.ED 13:43
DX: G30.9 Alzheimer's disease, unspecified (principal); R63.0 Anorexia; R00.0 Tachycardia, unspecified; I10 Essential (primary) hypertension; E78.00 Pure hypercholesterolemia, unspecified; E11.9 Type 2 diabetes mellitus without complications; F41.9 Anxiety disorder, unspecified; Z88.0 Allergy status to penicillin; Z88.5 Allergy status to narcotic agent; Z88.8 Allergy status to other drugs, medicaments and biological substances; Z79.82 Long term (current) use of aspirin; Z79.899 Other long term (current) drug therapy
CPT/HCPCS: 36415; 71045; 71045-26; 80053; 83880; 84443; 84484; 85025; 85379; 86140; 93005; 93010; 99283; 99285-25; J7030

== ENCOUNTER 2020-08-16 14:23 | Emergency (ER) | payer MEDICARE, MEDICAID ==
[2020-08-16 14:38] VITALS: BP 111/74; PULSE 124
[2020-08-16] MEDS ORDERED: Sodium Chloride 0.9% 10 ML Syringe FLUSH PRN (15:02)
[2020-08-16] MEDS ORDERED: Sodium Chloride 0.9% 1,000 ML IV SCH (15:15)
--- NOTE | 2020-08-16 15:53 | EDM.PDOC ---
ED HPI GENERAL MEDICAL PROBLEM - General Chief Complaint: General Stated Complaint: FEVER/WEAKNESS Time Seen by Provider: 08/16/20 14:35 Source of Information: Reports: Snf Records History Limitations: Reports: Other (The patient does not talk) - History of Present Illness INITIAL COMMENTS - FREE TEXT/NARRATIVE: The patient presents from the [place] [facility] for generalized weakness, fever and tachycardia. The patient is in [facility] and does not talk much. He just got his COVID 19 vaccine yesterday. He has a slight cough. He has no chest pain, abdominal pain, nausea or vomiting. Onset: Gradual Duration: Day(s): Severity: Moderate Improves with: Reports: None Worsens with: Reports: None Associated Symptoms: Reports: Cough, Fever/Chills, Shortness of Breath. Denies: Chest Pain, Headaches, Nausea/Vomiting - Related Data Allergies Allergy/AdvReac Type Severity Reaction Status Date / Time acetaminophen [From Tylenol] Allergy Severe Facial Verified 07/18/20 14:25 Swelling Penicillins Allergy Severe Facial Verified 07/18/20 14:25 Swelling naproxen [From Aleve] Allergy Mild Cannot Verified 07/18/20 14:25 Remember Home Meds: Home Meds Losartan [Cozaar] 100 mg PO DAILY 01/24/19 [History] atorvaSTATin [Lipitor] 20 mg PO BEDTIME 01/26/19 [History] Aspirin [Adult Low Dose Aspirin EC] 81 mg PO DAILY 05/18/20 [History] Calcium Carbonate [Tums] 500 mg PO BID 05/18/20 [History] [place]/Min Oil/Maria Esther/Wool Alcoh [Eucerin Creme] 1 applic TOP BID 05/18/20 [History] Cholecalciferol (Vitamin D3) [Vitamin D3] 1,000 unit PO DAILY 05/18/20 [History] Furosemide [Lasix] 20 mg PO DAILY 05/18/20 [History] Ibuprofen 600 mg PO Q6HR PRN 05/18/20 [History] Insulin Aspart [NovoLOG] 3 unit SQ TIDMEALS 05/18/20 [History] Insulin Detemir [Levemir] 20 unit SUBCUT DAILY 05/18/20 [History] LORazepam [Ativan] 0.5 mg PO TID 05/18/20 [History] Melatonin 9 mg PO BEDTIME 05/18/20 [History] Mirtazapine [Remeron] 7.5 mg PO BEDTIME 05/18/20 [History] Multivit-Min/FA/Lycopen/Lutein [Certavite Sr with Lutein Tab] 1 each PO DAILY 05/18/20 [History] bisacodyL [Dulcolax] 5 mg PO BID PRN 05/18/20 [History] polyethylene glycoL 3350 [MiraLAX] 17 gm PO DAILY PRN 05/18/20 [History] risperiDONE [Risperdal] 2 mg PO BID 05/18/20 [History] Ipratropium/Albuterol Sulfate [Iprat-Albut 0.5-3(2.5) MG/3 ML] 1 inhalation INH QID 07/18/20 [History] Magnesium Hydroxide [Milk of Magnesia] 30 ml PO BEDTIME 08/16/20 [History] metFORMIN [Glucophage XR] 1,000 mg PO BID 08/16/20 [History] Past Medical History HEENT History: Reports: None Cardiovascular History: Reports: High Cholesterol, Hypertension Respiratory History: Reports: Other (See Below) Other Respiratory History: acute respiratory disease (+ COVID) Gastrointestinal History: Reports: None Other Gastrointestinal History: polyphagia Genitourinary History: Reports: None Musculoskeletal History: Reports: None Neurological History: Reports: Alzheimers Disease, Other (See Below) Other Neuro History: restlessness/agitation Psychiatric History: Reports: Anxiety Endocrine/Metabolic History: Reports: Diabetes, Type II Hematologic History: Reports: None Immunologic History: Reports: None Oncologic (Cancer) History: Reports: None Dermatologic History: Reports: None - Infectious Disease History Infectious Disease History: Reports: Chicken Pox, Measles, Mumps, Novel Coronavirus - Past Surgical History Head Surgeries/Procedures: Reports: None HEENT Surgical History: Reports: None Cardiovascular Surgical History: Reports: None Respiratory Surgical History: Reports: None GI Surgical History: Reports: None Male Surgical History: Reports: None Endocrine Surgical History: Reports: None Neurological Surgical History: Reports: None Musculoskeletal Surgical History: Reports: ORIF Other Musculoskeletal Surgeries/Procedures:: ORIF of Right Foot. Brace in place Oncologic Surgical History: Reports: None Dermatological Surgical History: Reports: None Social & Family History - Family History Family Medical History: No Pertinent Family History - Tobacco Use Tobacco Use Status *Q: Never Tobacco User - Caffeine Use Caffeine Use: Reports: None - Living Situation & Occupation Living situation: Reports: Single, Extended Care Facility ([facility]) Occupation: Disabled ED ROS GENERAL - Review of Systems Review Of Systems: See Below Constitutional: Reports: Fever HEENT: Reports: No Symptoms Respiratory: Reports: Shortness of Breath, Cough Cardiovascular: Denies: No Symptoms Endocrine: Reports: No Symptoms GI/Abdominal: Reports: No Symptoms : Reports: No Symptoms Musculoskeletal: Reports: No Symptoms ED EXAM, GENERAL - Physical Exam Exam: See Below Exam Limited By: No Limitations General Appearance: Alert, No Apparent Distress Ears: Normal External Exam Nose: Normal Inspection Throat/Mouth: Other (Dry mucus membranes) Head: Atraumatic, Normocephalic Neck: Normal Inspection Respiratory/Chest: No Respiratory Distress, Lungs Clear, Normal Breath Sounds Cardiovascular: No Edema, No Murmur, Tachycardia GI/Abdominal: Soft, Non-Tender, No Organomegaly, No Mass Back Exam: Normal Inspection Extremities: Normal Inspection #1 Interpretation EKG Date: 08/16/20 Time: 14:36 Rhythm: Other (Sinus tachycardia) Rate (Beats/Min): [address] [place]: Normal P-Wave: Present QRS: Normal ST-T: Normal QT: Normal Course - Vital Signs Last Recorded V/S: Last Vital Signs Temp 98.2 F 08/16/20 14:35 Pulse 124 H 08/16/20 14:35 Resp 16 08/16/20 14:35 BP 111/74 08/16/20 14:35 Pulse Ox 92 L 08/16/20 14:35 - Orders/Labs/Meds Orders: Active Orders 24 hr Category Date Time Status Cardiac Monitoring [RC] . DIRECTED Care 08/16/20 15:02 Active EKG Documentation Completion [RC] ASDIRECTED Care 08/16/20 15:04 Active Oxygen Therapy [RC] PRN Care 08/16/20 15:02 Active Peripheral IV Care [RC] . DIRECTED Care 08/16/20 15:03 Active Sodium Chloride 0.9% [Normal Saline] 1,000 ml Med 08/16/20 15:15 Active IV ASDIRECTED Sodium Chloride 0.9% [Saline Flush] Med 08/16/20 15:02 Active 10 ml FLUSH ASDIRECTED PRN Peripheral IV Insertion Adult [OM.PC] Stat Oth 08/16/20 15:02 Ordered EKG 12 Lead [EK] Stat Ther 08/16/20 15:04 Ordered Medication Orders Sodium Chloride (Normal Saline) 1,000 mls @ 125 mls/hr IV ASDIRECTED CHRIS Last Admin: 08/16/20 15:18 Dose: 125 mls/hr Documented by: CHANTAL Sodium Chloride (Saline Flush) 10 ml FLUSH ASDIRECTED PRN PRN Reason: Keep Vein Open Last Admin: 08/16/20 15:18 Dose: 10 ml Documented by: CHANTAL Labs: Laboratory Tests 08/16/20 08/16/20 08/16/20 Range/Units 15:26 15:35 15:35 WBC 7.82 (4.23-9.07) K/mm3 RBC 3.99 L (4.63-6.08) M/mm3 Hgb 11.5 L (13.7-17.5) gm/dl Hct 37.1 L (40.1-51.0) % MCV 93.0 H (79.0-92.2) fl MCH 28.8 (25.7-32.2) pg MCHC 31.0 L (32.2-35.5) g/dl RDW Std Deviation 48.6 H (35.1-43.9) fL Plt Count 234 (163-337) K/mm3 MPV 9.8 (9.4-12.3) fl Neut % (Auto) 83.8 H (34.0-67.9) % Lymph % (Auto) 7.0 L (21.8-53.1) % [place] % (Auto) 8.6 (5.3-12.2) % Eos % (Auto) 0 L (0.8-7.0) Baso % (Auto) 0.3 (0.1-1.2) % Neut # (Auto) 6.56 H (1.78-5.38) K/mm3 Lymph # (Auto) 0.55 L (1.32-3.57) K/mm3 [place] # (Auto) 0.67 (0.30-0.82) K/mm3 Eos # (Auto) 0.00 L (0.04-0.54) K/mm3 Baso # (Auto) 0.02 (0.01-0.08) K/mm3 Manual Slide Review Abnormal smear PT 11.9 (9.7-12.0) SECONDS INR 1.11 APTT 26.5 (21.7-31.4) SECONDS Sodium (136-145) mEq/L Potassium (3.5-5.1) mEq/L Chloride (98-107) mEq/L Carbon Dioxide (21-32) mEq/L Anion Gap (5-15) BUN (7-18) mg/dL Creatinine (0.7-1.3) mg/dL Est Cr Clr Drug Dosing Estimated GFR (MDRD) (>60) mL/min BUN/Creatinine Ratio (14-18) Glucose (74-106) mg/dL Calcium (8.5-10.1) mg/dL Total Bilirubin (0.2-1.0) mg/dL AST (15-37) U/L ALT (16-63) U/L Alkaline Phosphatase (46-116) U/L C-Reactive Protein (<1.0) mg/dL Total Protein (6.4-8.2) g/dl Albumin (3.4-5.0) g/dl Globulin gm/dL Albumin/Globulin Ratio (1-2) Urine Color (Yellow) Urine Appearance (Clear) Urine pH (5.0-8.0) Ur Specific Bow (1.005-1.030) Urine Protein (Negative) Urine Glucose (UA) (Negative) Urine Ketones (Negative) Urine Occult Blood (Negative) Urine Nitrite (Negative) Urine Bilirubin (Negative) Urine Urobilinogen (0.2-1.0) Ur Leukocyte Esterase (Negative) Urine RBC (0-5) /hpf Urine WBC (0-5) /hpf Ur Squamous Epith Cells (0-5) /hpf Urine Bacteria (FEW) /hpf Urine Mucus (FEW) /hpf SARS-CoV-2 RNA (CHRIS) Negative (NEGATIVE) 08/16/20 08/16/20 Range/Units 15:35 16:05 WBC (4.23-9.07) K/mm3 RBC (4.63-6.08) M/mm3 Hgb (13.7-17.5) gm/dl Hct (40.1-51.0) % MCV (79.0-92.2) fl MCH (25.7-32.2) pg MCHC (32.2-35.5) g/dl RDW Std Deviation (35.1-43.9) fL Plt Count (163-337) K/mm3 MPV (9.4-12.3) fl Neut % (Auto) (34.0-67.9) % Lymph % (Auto) (21.8-53.1) % [place] % (Auto) (5.3-12.2) % Eos % (Auto) (0.8-7.0) Baso % (Auto) (0.1-1.2) % Neut # (Auto) (1.78-5.38) K/mm3 Lymph # (Auto) (1.32-3.57) K/mm3 [place] # (Auto) (0.30-0.82) K/mm3 Eos # (Auto) (0.04-0.54) K/mm3 Baso # (Auto) (0.01-0.08) K/mm3 Manual Slide Review PT (9.7-12.0) SECONDS INR APTT (21.7-31.4) SECONDS Sodium 136 (136-145) mEq/L Potassium 4.0 (3.5-5.1) mEq/L Chloride 100 (98-107) mEq/L Carbon Dioxide 28 (21-32) mEq/L Anion Gap 12.0 (5-15) BUN 16 (7-18) mg/dL Creatinine 0.9 (0.7-1.3) mg/dL Est Cr Clr Drug Dosing TNP Estimated GFR (MDRD) > 60 (>60) mL/min BUN/Creatinine Ratio 17.8 (14-18) Glucose 149 H (74-106) mg/dL Calcium 9.4 (8.5-10.1) mg/dL Total Bilirubin 0.8 (0.2-1.0) mg/dL AST 15 (15-37) U/L ALT 17 (16-63) U/L Alkaline Phosphatase 80 (46-116) U/L C-Reactive Protein 6.2 H* (<1.0) mg/dL Total Protein 7.8 (6.4-8.2) g/dl Albumin 3.5 (3.4-5.0) g/dl Globulin 4.3 gm/dL Albumin/Globulin Ratio 0.8 L (1-2) Urine Color Yellow (Yellow) Urine Appearance Slt cloudy H (Clear) Urine pH 7.5 (5.0-8.0) Ur Specific Bow 1.025 (1.005-1.030) Urine Protein 1+ H (Negative) Urine Glucose (UA) Negative (Negative) Urine Ketones Trace H (Negative) Urine Occult Blood Negative (Negative) Urine Nitrite Negative (Negative) Urine Bilirubin Negative (Negative) Urine Urobilinogen 0.2 (0.2-1.0) Ur Leukocyte Esterase Negative (Negative) Urine RBC 0-5 (0-5) /hpf Urine WBC 0-5 (0-5) /hpf Ur Squamous Epith Cells 5-10 H (0-5) /hpf Urine Bacteria Rare (FEW) /hpf Urine Mucus Many H (FEW) /hpf SARS-CoV-2 RNA (CHRIS) (NEGATIVE) Meds: Medications Generic Name Dose Route Start Last Admin Trade Name Freq PRN Reason Stop Dose Admin Sodium Chloride 1,000 mls @ 125 mls/hr 08/16/20 15:15 08/16/20 15:18 Normal Saline IV 125 mls/hr ASDIRECTED CHRIS Administration Sodium Chloride 10 ml 08/16/20 15:02 08/16/20 15:18 Saline Flush FLUSH 10 ml ASDIRECTED PRN Administration Keep Vein Open - Re-Assessments/Exams Free Text/Narrative Re-Assessment/Exam: 08/16/20 15:56 I ordered oxygen PRN, IV NS at 125mL/hr, EKG, CXR, labs and COVID 19 screen. His EKG shows a sinus tachycardia with no acute changes. His CXR shows no infiltrates. 08/16/20 16:35 His WBC was normal. His Hgb was low at 11.5. His PT and PTT are normal. His CRP is elevated at 6.2. His UA shows no UTI. His COVID is negative. He was a little dehydrated. I am giving him a liter of fluid. I feel this was an immune response from the COVID 19 vaccine. I will discharge him home. Departure - Departure Time of Disposition: 16:40 Disposition: DC/Tfer to [facility] Condition: Good Clinical Impression: Dehydration - Discharge Information *PRESCRIPTION DRUG MONITORING PROGRAM REVIEWED*: Not Applicable *COPY OF PRESCRIPTION DRUG MONITORING REPORT IN PATIENT SKYE: Not Applicable Referrals: Hugh Pruett MD [Primary Care Provider] - Forms: ED Department Discharge Additional Instructions: Lavelle had dehydration. He was given a liter of fluid. His chest x-ray shows no infiltrate and his urinalysis shows no urinary tract infection. I believe the fever was from a immune response from the COVID 19 vaccine. Please return if Lavelle is worse. Sepsis Event Note (ED) - Evaluation Sepsis Screening Result: No Definite Risk - Focused Exam Vital Signs: Vital Signs Temp Pulse Resp BP Pulse Ox 08/16/20 14:35 98.2 F 124 H 16 111/74 92 L - My Orders Last 24 Hours: My Active Orders 08/16/20 15:02 Cardiac Monitoring [RC] . DIRECTED Oxygen Therapy [RC] PRN Sodium Chloride 0.9% [Saline Flush] 10 ml FLUSH ASDIRECTED PRN Peripheral IV Insertion Adult [OM.PC] Stat 08/16/20 15:03 Peripheral IV Care [RC] . DIRECTED 08/16/20 15:04 EKG Documentation Completion [RC] ASDIRECTED EKG 12 Lead [EK] Stat 08/16/20 15:15 Sodium Chloride 0.9% [Normal Saline] 1,000 ml IV ASDIRECTED - Assessment/Plan Last 24 Hours: My Active Orders 08/16/20 15:02 Cardiac Monitoring [RC] . DIRECTED Oxygen Therapy [RC] PRN Sodium Chloride 0.9% [Saline Flush] 10 ml FLUSH ASDIRECTED PRN Peripheral IV Insertion Adult [OM.PC] Stat 08/16/20 15:03 Peripheral IV Care [RC] . DIRECTED 08/16/20 15:04 EKG Documentation Completion [RC] ASDIRECTED EKG 12 Lead [EK] Stat 08/16/20 15:15 Sodium Chloride 0.9% [Normal Saline] 1,000 ml IV ASDIRECTED
--- NOTE | 2020-08-16 15:56 | CR ---
Chest: Portable view of the chest was obtained. Comparison: Prior chest x-ray of 07/18/20. Lung markings are increased on both sides of the chest. Findings are felt to be fairly similar to previous study. No definite acute parenchymal change is seen. Heart size and mediastinum are normal. Bony structures are grossly intact. Old healed fracture deformity is noted within the left clavicle. Impression: 1. Stable findings as described above. 2. Nothing acute is definitely seen. Diagnostic code #2
== END 2020-08-16 17:28 ==
LOC: JD.ED 14:23
DX: E86.0 Dehydration (principal); E11.9 Type 2 diabetes mellitus without complications; F41.9 Anxiety disorder, unspecified; G30.9 Alzheimer's disease, unspecified; I10 Essential (primary) hypertension; E78.00 Pure hypercholesterolemia, unspecified; Z20.822 Contact with and (suspected) exposure to COVID-19; Z88.5 Allergy status to narcotic agent; Z88.0 Allergy status to penicillin; Z88.8 Allergy status to other drugs, medicaments and biological substances; Z79.82 Long term (current) use of aspirin; Z79.4 Long term (current) use of insulin; Z79.899 Other long term (current) drug therapy
CPT/HCPCS: 36415; 71045; 80053; 81001; 85025; 85610; 85730; 86140; 93005; 99285; J7030; U0002; 93010; 99284

== ENCOUNTER 2021-07-09 00:22 | Inpatient (IN) | payer MEDICARE, MEDICAID ==
--- NOTE | 2021-07-09 00:49 | EDM.PDOC ---
ED HPI GENERAL MEDICAL PROBLEM - General Chief Complaint: Respiratory Problem Stated Complaint: [facility] Time Seen by Provider: 07/09/21 00:41 - History of Present Illness INITIAL COMMENTS - FREE TEXT/NARRATIVE: 61-year-old male brought in from the longterm [facility] [place] with hypoxia. Patient presents the emergency room via EMS. He was noted to have a worsening cough and his O2 saturation was found to be in the 80s. Upon arrival by EMS the patient's O2 saturation had improved to the low 90s with supplemental oxygen. He was in the low 90s at 2 L. EMS also found him to have a wet cough. He was afebrile with a temperature of 99.7. Patient is able to answer simple questions. He denies any chest pain or chest pressure. He also denies any pain. However when asked why he came to the emergency room he started talking about shampoo. The patient has a significant psychiatric history and resides at the [facility] the [facility] - Related Data Allergies Allergy/AdvReac Type Severity Reaction Status Date / Time acetaminophen [From Tylenol] Allergy Severe Facial Verified 07/09/21 00:36 Swelling Penicillins Allergy Severe Facial Verified 07/09/21 00:36 Swelling naproxen [From Aleve] Allergy Mild Cannot Verified 07/09/21 00:36 Remember Home Meds: Home Meds Losartan [Cozaar] 100 mg PO DAILY 01/24/19 [History] atorvaSTATin [Lipitor] 20 mg PO BEDTIME 01/26/19 [History] Calcium Carbonate [Tums] 500 mg PO BID 05/18/20 [History] Cholecalciferol (Vitamin D3) [Vitamin D3] 1,000 unit PO DAILY 05/18/20 [History] Furosemide [Lasix] 20 mg PO DAILY 05/18/20 [History] Ibuprofen 600 mg PO Q6HR PRN 05/18/20 [History] LORazepam [Ativan] 0.5 mg PO QID 05/18/20 [History] Melatonin 9 mg PO BEDTIME 05/18/20 [History] Mirtazapine [Remeron] 7.5 mg PO BEDTIME 05/18/20 [History] Multivit-Min/FA/Lycopen/Lutein [Certavite Sr with Lutein Tab] 1 each PO DAILY 05/18/20 [History] bisacodyL [Dulcolax] 5 mg PO BID PRN 10/07/20 [History] polyethylene glycoL 3350 [MiraLAX] 17 gm PO DAILY PRN 05/18/20 [History] risperiDONE [Risperdal] 3 mg PO BID 05/18/20 [History] Ipratropium/Albuterol Sulfate [Iprat-Albut 0.5-3(2.5) MG/3 ML] 1 inhalation INH QID PRN 07/18/20 [History] Magnesium Hydroxide [Milk of Magnesia] 30 ml PO BEDTIME 08/16/20 [History] metFORMIN [Glucophage XR] 1,000 mg PO BID 08/16/20 [History] Ketchum/Min Oil/Maria Esther/Wool Alcoh [Eucerin Creme] 1 dose TOP BID 07/09/21 [History] Menthol/Selenium Sulfide [Selsun Blue 1% Shampoo] 118 ml .XX MOTH 07/09/21 [History] OLANZapine [ZyPREXA] 10 mg PO DAILY 07/09/21 [History] Tamsulosin [Tamsulosin 24 Hr] 0.4 mg PO DAILY 07/09/21 [History] fluvoxaMINE [fluvoxaMINE Maleate] 150 mg PO BID 07/09/21 [History] Past Medical History HEENT History: Reports: None Cardiovascular History: Reports: High Cholesterol, Hypertension Respiratory History: Reports: Other (See Below) Other Respiratory History: acute respiratory disease (+ COVID) Gastrointestinal History: Reports: None Other Gastrointestinal History: polyphagia Genitourinary History: Reports: None Musculoskeletal History: Reports: None Neurological History: Reports: Alzheimers Disease, Other (See Below) Other Neuro History: restlessness/agitation Psychiatric History: Reports: Anxiety Endocrine/Metabolic History: Reports: Diabetes, Type II Hematologic History: Reports: None Immunologic History: Reports: None Oncologic (Cancer) History: Reports: None Dermatologic History: Reports: None - Infectious Disease History Infectious Disease History: Reports: Chicken Pox, Measles, Mumps, Novel Coronavirus - Past Surgical History Head Surgeries/Procedures: Reports: None HEENT Surgical History: Reports: None Cardiovascular Surgical History: Reports: None Respiratory Surgical History: Reports: None GI Surgical History: Reports: None Male Surgical History: Reports: None Endocrine Surgical History: Reports: None Neurological Surgical History: Reports: None Musculoskeletal Surgical History: Reports: ORIF Other Musculoskeletal Surgeries/Procedures:: ORIF of Right Foot. Brace in place Oncologic Surgical History: Reports: None Dermatological Surgical History: Reports: None Social & Family History - Family History Family Medical History: No Pertinent Family History - Caffeine Use Caffeine Use: Reports: None - Living Situation & Occupation Living situation: Reports: Single, Extended Care Facility ([facility]) Occupation: Disabled ED ROS GENERAL - Review of Systems Review Of Systems: See Below Reason Not Obtained: Difficult to obtain due to psychiatric condition ED EXAM, GENERAL - Physical Exam Exam: See Below Exam Limited By: No Limitations General Appearance: Alert, No Apparent Distress, Other (O2 89-91% on room air) Ears: Normal External Exam, Normal Canal, Hearing Grossly Normal, Normal TMs Nose: Normal Inspection, Normal Mucosa, No Blood Throat/Mouth: Normal Inspection, Normal Lips, Normal Gums, Normal Oropharynx, Normal Voice, No Airway Compromise Head: Atraumatic, Normocephalic Neck: Normal Inspection, Supple, Non-Tender, Full Range of Motion. No: Lymphadenopathy (L), Lymphadenopathy (R) Respiratory/Chest: No Respiratory Distress, No Accessory Muscle Use, Chest Non- Tender, Decreased Breath Sounds, Crackles (Crackles noted in both lung bases left more so than right) Cardiovascular: Regular Rate, Rhythm, No Edema, No Murmur GI/Abdominal: Normal Bowel Sounds, Soft, Non-Tender Back Exam: Normal Inspection. No: CVA Tenderness (L), CVA Tenderness (R) Extremities: Normal Inspection, No Pedal Edema #1 Interpretation EKG Date: 07/09/21 Rhythm: Other (Sinus tachycardia) Rate (Beats/Min): 118 Satin: Normal P-Wave: Present QRS: Normal ST-T: Normal QT: Normal Comparison: No Change (No significant change from August 16 of this year he had a sinus tachycardia then as well) EKG Interpretation Comments: Abnormal EKG Course - Vital Signs Last Recorded V/S: Last Vital Signs Temp 37.4 C 07/09/21 06:00 Pulse 100 07/09/21 00:30 Resp 20 07/09/21 00:30 BP 118/83 07/09/21 00:30 Pulse Ox 90 L 07/09/21 00:30 - Orders/Labs/Meds Orders: Active Orders 24 hr Category Date Time Status Ang Chest [CT] Stat Exams 07/09/21 02:01 Taken Ang Chest [CT] Stat Exams 07/09/21 03:37 Taken Chest 1V Frontal [CR] Stat Exams 07/09/21 00:42 Taken BLOOD CULTURE [MREF] Stat Lab 07/09/21 00:56 Received BLOOD CULTURE [MREF] Stat Lab 07/09/21 01:07 Received Lactated Ringers [Ringers, Lactated] 1,000 ml Med 07/09/21 02:00 Active IV ASDIRECTED Sodium Chloride 0.9% [Normal Saline] 100 ml Med 07/09/21 02:15 Active IV ASDIRECTED Sodium Chloride 0.9% [Normal Saline] 100 ml Med 07/09/21 03:45 Active IV ASDIRECTED Blood Culture x2 Reflex Set [OM.PC] Stat Oth 07/09/21 00:43 Ordered Medication Orders Lactated Ringer's (Ringers, Lactated) 1,000 mls @ 150 mls/hr IV ASDIRECTED CHRIS Last Infusion: 07/09/21 04:38 Dose: 999 mls/hr Documented by: Admin: 07/09/21 03:42 Dose: 150 mls/hr Documented by: SAYRA Sodium Chloride (Normal Saline) 100 mls @ 70 mls/min IV ASDIRECTED CHRIS Last Admin: 07/09/21 02:41 Dose: 70 mls/min Documented by: BUBBA Sodium Chloride (Normal Saline) 100 mls @ 70 mls/min IV ASDIRECTED CHRIS Last Admin: 07/09/21 04:20 Dose: 70 mls/min Documented by: BUBBA Labs: Laboratory Tests 07/09/21 07/09/21 07/09/21 Range/Units 00:56 00:56 00:56 WBC 12.53 H (4.23-9.07) K/mm3 RBC 4.06 L (4.63-6.08) M/mm3 Hgb 12.1 L (13.7-17.5) gm/dl Hct 38.7 L (40.1-51.0) % MCV 95.3 H (79.0-92.2) fl MCH 29.8 (25.7-32.2) pg MCHC 31.3 L (32.2-35.5) g/dl RDW Std Deviation 46.1 H (35.1-43.9) fL Plt Count 226 (163-337) K/mm3 MPV 10.1 (9.4-12.3) fl Neut % (Auto) 87.5 H (34.0-67.9) % Lymph % (Auto) 5.8 L (21.8-53.1) % [place] % (Auto) 6.0 (5.3-12.2) % Eos % (Auto) 0.1 L (0.8-7.0) Baso % (Auto) 0.2 (0.1-1.2) % Neut # (Auto) 10.97 H (1.78-5.38) K/mm3 Lymph # (Auto) 0.73 L (1.32-3.57) K/mm3 [place] # (Auto) 0.75 (0.30-0.82) K/mm3 Eos # (Auto) 0.01 L (0.04-0.54) K/mm3 Baso # (Auto) 0.02 (0.01-0.08) K/mm3 PT (9.7-12.0) SECONDS INR APTT (21.7-31.4) SECONDS D-Dimer, Quantitative (0.19-0.50) mg/L Sodium 141 (136-145) mEq/L Potassium 4.3 (3.5-5.1) mEq/L Chloride 102 (98-107) mEq/L Carbon Dioxide 20 L (21-32) mEq/L Anion Gap 23.3 H (5-15) BUN 24 H (7-18) mg/dL Creatinine 0.9 (0.7-1.3) mg/dL Est Cr Clr Drug Dosing TNP Estimated GFR (MDRD) > 60 (>60) mL/min BUN/Creatinine Ratio 26.7 H (14-18) Glucose 206 H (70-99) mg/dL Lactic Acid 10.0 H* (0.4-2.0) mmol/L Calcium 10.0 (8.5-10.1) mg/dL Total Bilirubin 0.4 (0.2-1.0) mg/dL AST 18 (15-37) U/L ALT 23 (16-63) U/L Alkaline Phosphatase 79 (46-116) U/L Troponin I (0.00-0.056) ng/mL Total Protein 7.8 (6.4-8.2) g/dl Albumin 3.7 (3.4-5.0) g/dl Globulin 4.1 gm/dL Albumin/Globulin Ratio 0.9 L (1-2) Mycoplasma pneumon IgM (NEGATIVE) SARS-CoV-2 RNA (CHRIS) (NEGATIVE) MRSA (PCR) 07/09/21 07/09/21 07/09/21 Range/Units 00:56 00:56 00:56 WBC (4.23-9.07) K/mm3 RBC (4.63-6.08) M/mm3 Hgb (13.7-17.5) gm/dl Hct (40.1-51.0) % MCV (79.0-92.2) fl MCH (25.7-32.2) pg MCHC (32.2-35.5) g/dl RDW Std Deviation (35.1-43.9) fL Plt Count (163-337) K/mm3 MPV (9.4-12.3) fl Neut % (Auto) (34.0-67.9) % Lymph % (Auto) (21.8-53.1) % [place] % (Auto) (5.3-12.2) % Eos % (Auto) (0.8-7.0) Baso % (Auto) (0.1-1.2) % Neut # (Auto) (1.78-5.38) K/mm3 Lymph # (Auto) (1.32-3.57) K/mm3 [place] # (Auto) (0.30-0.82) K/mm3 Eos # (Auto) (0.04-0.54) K/mm3 Baso # (Auto) (0.01-0.08) K/mm3 PT 10.9 (9.7-12.0) SECONDS INR 0.98 APTT 23.6 (21.7-31.4) SECONDS D-Dimer, Quantitative 1.01 H (0.19-0.50) mg/L Sodium (136-145) mEq/L Potassium (3.5-5.1) mEq/L Chloride (98-107) mEq/L Carbon Dioxide (21-32) mEq/L Anion Gap (5-15) BUN (7-18) mg/dL Creatinine (0.7-1.3) mg/dL Est Cr Clr Drug Dosing Estimated GFR (MDRD) (>60) mL/min BUN/Creatinine Ratio (14-18) Glucose (70-99) mg/dL Lactic Acid (0.4-2.0) mmol/L Calcium (8.5-10.1) mg/dL Total Bilirubin (0.2-1.0) mg/dL AST (15-37) U/L ALT (16-63) U/L Alkaline Phosphatase (46-116) U/L Troponin I < 0.017 (0.00-0.056) ng/mL Total Protein (6.4-8.2) g/dl Albumin (3.4-5.0) g/dl Globulin gm/dL Albumin/Globulin Ratio (1-2) Mycoplasma pneumon IgM (NEGATIVE) SARS-CoV-2 RNA (CHRIS) (NEGATIVE) MRSA (PCR) 07/09/21 07/09/21 07/09/21 Range/Units 00:56 02:42 02:46 WBC (4.23-9.07) K/mm3 RBC (4.63-6.08) M/mm3 Hgb (13.7-17.5) gm/dl Hct (40.1-51.0) % MCV (79.0-92.2) fl MCH (25.7-32.2) pg MCHC (32.2-35.5) g/dl RDW Std Deviation (35.1-43.9) fL Plt Count (163-337) K/mm3 MPV (9.4-12.3) fl Neut % (Auto) (34.0-67.9) % Lymph % (Auto) (21.8-53.1) % [place] % (Auto) (5.3-12.2) % Eos % (Auto) (0.8-7.0) Baso % (Auto) (0.1-1.2) % Neut # (Auto) (1.78-5.38) K/mm3 Lymph # (Auto) (1.32-3.57) K/mm3 [place] # (Auto) (0.30-0.82) K/mm3 Eos # (Auto) (0.04-0.54) K/mm3 Baso # (Auto) (0.01-0.08) K/mm3 PT (9.7-12.0) SECONDS INR APTT (21.7-31.4) SECONDS D-Dimer, Quantitative (0.19-0.50) mg/L Sodium (136-145) mEq/L Potassium (3.5-5.1) mEq/L Chloride (98-107) mEq/L Carbon Dioxide (21-32) mEq/L Anion Gap (5-15) BUN (7-18) mg/dL Creatinine (0.7-1.3) mg/dL Est Cr Clr Drug Dosing Estimated GFR (MDRD) (>60) mL/min BUN/Creatinine Ratio (14-18) Glucose (70-99) mg/dL Lactic Acid (0.4-2.0) mmol/L Calcium (8.5-10.1) mg/dL Total Bilirubin (0.2-1.0) mg/dL AST (15-37) U/L ALT (16-63) U/L Alkaline Phosphatase (46-116) U/L Troponin I (0.00-0.056) ng/mL Total Protein (6.4-8.2) g/dl Albumin (3.4-5.0) g/dl Globulin gm/dL Albumin/Globulin Ratio (1-2) Mycoplasma pneumon IgM Negative (NEGATIVE) SARS-CoV-2 RNA (CHRIS) Negative (NEGATIVE) MRSA (PCR) Negative 07/09/21 07/09/21 07/09/21 Range/Units 03:40 06:09 06:09 WBC (4.23-9.07) K/mm3 RBC (4.63-6.08) M/mm3 Hgb (13.7-17.5) gm/dl Hct (40.1-51.0) % MCV (79.0-92.2) fl MCH (25.7-32.2) pg MCHC (32.2-35.5) g/dl RDW Std Deviation (35.1-43.9) fL Plt Count (163-337) K/mm3 MPV (9.4-12.3) fl Neut % (Auto) (34.0-67.9) % Lymph % (Auto) (21.8-53.1) % [place] % (Auto) (5.3-12.2) % Eos % (Auto) (0.8-7.0) Baso % (Auto) (0.1-1.2) % Neut # (Auto) (1.78-5.38) K/mm3 Lymph # (Auto) (1.32-3.57) K/mm3 [place] # (Auto) (0.30-0.82) K/mm3 Eos # (Auto) (0.04-0.54) K/mm3 Baso # (Auto) (0.01-0.08) K/mm3 PT (9.7-12.0) SECONDS INR APTT (21.7-31.4) SECONDS D-Dimer, Quantitative (0.19-0.50) mg/L Sodium 138 (136-145) mEq/L Potassium 4.0 (3.5-5.1) mEq/L Chloride 102 (98-107) mEq/L Carbon Dioxide 24 (21-32) mEq/L Anion Gap 16.0 H (5-15) BUN 20 H (7-18) mg/dL Creatinine 0.8 (0.7-1.3) mg/dL Est Cr Clr Drug Dosing 93.81 Estimated GFR (MDRD) > 60 (>60) mL/min BUN/Creatinine Ratio 25.0 H (14-18) Glucose 156 H (70-99) mg/dL Lactic Acid 4.3 H* 4.3 H* (0.4-2.0) mmol/L Calcium 8.8 (8.5-10.1) mg/dL Total Bilirubin (0.2-1.0) mg/dL AST (15-37) U/L ALT (16-63) U/L Alkaline Phosphatase (46-116) U/L Troponin I (0.00-0.056) ng/mL Total Protein (6.4-8.2) g/dl Albumin (3.4-5.0) g/dl Globulin gm/dL Albumin/Globulin Ratio (1-2) Mycoplasma pneumon IgM (NEGATIVE) SARS-CoV-2 RNA (CHRIS) (NEGATIVE) MRSA (PCR) Meds: Medications Generic Name Dose Route Start Last Admin Trade Name Freq PRN Reason Stop Dose Admin Lactated Ringer's 1,000 mls @ 150 mls/hr 07/09/21 02:00 07/09/21 04:38 Ringers, Lactated IV 999 mls/hr ASDIRECTED CHRIS Infusion Sodium Chloride 100 mls @ 70 mls/min 07/09/21 02:15 07/09/21 02:41 Normal Saline IV 70 mls/min ASDIRECTED CHRIS Administration Sodium Chloride 100 mls @ 70 mls/min 07/09/21 03:45 07/09/21 04:20 Normal Saline IV 70 mls/min ASDIRECTED CHRIS Administration Discontinued Medications Generic Name Dose Route Start Last Admin Trade Name Raheel PRN Reason Stop Dose Admin Lactated Ringer's 1,000 mls @ 999 mls/hr 07/09/21 01:59 07/09/21 02:05 Ringers, Lactated IV 07/09/21 02:59 999 mls/hr .BOLUS ONE Administration Levofloxacin/Dextrose 750 mg/ 150 mls @ 100 mls/hr 07/09/21 02:39 07/09/21 03:02 Premix IV 07/09/21 04:08 100 mls/hr ONETIME ONE Administration Lactated Ringer's 1,000 mls @ 999 mls/hr 07/09/21 05:35 07/09/21 05:41 Ringers, Lactated IV 07/09/21 06:35 999 mls/hr .BOLUS ONE Administration Iopamidol 100 ml 07/09/21 02:04 07/09/21 02:41 Iopamidol 755 Mg/Ml 100 Ml Bottle IVPUSH 07/09/21 02:05 100 ml ONETIME ONE Administration Iopamidol 100 ml 07/09/21 03:41 07/09/21 04:20 Iopamidol 755 Mg/Ml 100 Ml Bottle IVPUSH 07/09/21 03:42 100 ml ONETIME ONE Administration Lorazepam 0.5 mg 07/09/21 03:29 07/09/21 03:36 Lorazepam 0.5 Mg Tab PO 07/09/21 03:30 0.5 mg ONETIME ONE Administration Lorazepam 0.5 mg 07/09/21 05:37 07/09/21 05:41 Lorazepam 0.5 Mg Tab PO 07/09/21 05:38 0.5 mg ONETIME ONE Administration Sodium Chloride 10 ml 07/09/21 02:04 07/09/21 02:41 Sodium Chloride 0.9% 10 Ml Sdv FLUSH 07/09/21 02:05 10 ml ONETIME ONE Administration Sodium Chloride 10 ml 07/09/21 03:41 07/09/21 04:20 Sodium Chloride 0.9% 10 Ml Sdv FLUSH 07/09/21 03:42 10 ml ONETIME ONE Administration - Re-Assessments/Exams Free Text/Narrative Re-Assessment/Exam: 07/09/21 02:25 Chest x-ray shows what could be lower lobe infiltrate. D-dimer is elevated will proceed to a CTA. Abnormal labs include a white count of 12,500 D-dimer 1.01 anion gap 23.3 BUN 24 creatinine 0.9 lactic acid 10.0 troponin is less than our detectable limit at 0.017. Patient situation is concerning for sepsis fluids started will wait on antibiotics will be started because of his penicillin allergy will use Levaquin. We are screening for MRSA. 07/09/21 03:21 CTA is suggestive of a atypical process we will check a mycoplasma. More concerning as the study was essentially nondiagnostic for evaluation of a PE due to bolus timing but there is suggestion of a potential PE in the right lower lobe. I discussed it with the vehicle modification technician will attempt repeat study in another 45 to 60 minutes. 07/09/21 05:51 We did get the repeat CT this does not show any evidence of pulmonary embolism again pulmonary findings of the right and left lower lobes are compatible with small airway inflammation or atypical infection. The patient was started on Levaquin and. Further review of the patient's vitals show that he was tachycardic on his last visit here review of the vitals from the longterm facility showed that he is often tachycardic in the 120s. At this point we have a repeat lactic acid and basic metabolic panel if these are reassuring anticipate discharging back to the [facility] on oral Levaquin. 07/09/21 07:06 Most recent lactic acid is 4.3 given that I will not send the patient back to the snf he will stay here. As the patient had a contrast load and is on Metformin, his Metformin will be held for 2 days. Case discussed with Dr. Phillips who will accept. Departure - Departure Time of Disposition: 07:10 Disposition: Admitted As Inpatient 66 Clinical Impression: Dehydration, Sepsis Pneumonia Qualifiers: Pneumonia type: due to unspecified organism Laterality: right Lung location: lower lobe of lung Qualified Code(s): J18.1 - Lobar pneumonia, unspecified organism - Discharge Information Referrals: Hugh Pruett MD [Primary Care Provider] - Forms: ED Department Discharge Additional Instructions: Return to the emergency room with any questions problems or worsening symptoms. Discontinue Metformin resume on July 11. Levaquin 750 mg daily for 7 days first dose given here in the emergency room. Follow-up with regular healthcare provider towards the end of this week. Sepsis Event Note (ED) - Focused Exam Vital Signs: Vital Signs Temp Pulse Resp BP Pulse Ox 07/09/21 06:00 37.4 C 07/09/21 00:30 36.2 C 100 20 118/83 90 L - My Orders Last 24 Hours: My Active Orders 07/09/21 00:42 Chest 1V Frontal [CR] Stat 07/09/21 00:43 Blood Culture x2 Reflex Set [OM.PC] Stat 07/09/21 00:56 BLOOD CULTURE [MREF] Stat 07/09/21 01:07 BLOOD CULTURE [MREF] Stat 07/09/21 02:00 Lactated Ringers [Ringers, Lactated] 1,000 ml IV ASDIRECTED 07/09/21 02:01 Ang Chest [CT] Stat 07/09/21 02:15 Sodium Chloride 0.9% [Normal Saline] 100 ml IV ASDIRECTED 07/09/21 03:37 Ang Chest [CT] Stat 07/09/21 03:45 Sodium Chloride 0.9% [Normal Saline] 100 ml IV ASDIRECTED - Assessment/Plan Last 24 Hours: My Active Orders 07/09/21 00:42 Chest 1V Frontal [CR] Stat 07/09/21 00:43 Blood Culture x2 Reflex Set [OM.PC] Stat 07/09/21 00:56 BLOOD CULTURE [MREF] Stat 07/09/21 01:07 BLOOD CULTURE [MREF] Stat 07/09/21 02:00 Lactated Ringers [Ringers, Lactated] 1,000 ml IV ASDIRECTED 07/09/21 02:01 Ang Chest [CT] Stat 07/09/21 02:15 Sodium Chloride 0.9% [Normal Saline] 100 ml IV ASDIRECTED 07/09/21 03:37 Ang Chest [CT] Stat 07/09/21 03:45 Sodium Chloride 0.9% [Normal Saline] 100 ml IV ASDIRECTED
[2021-07-09] MEDS ORDERED: Lactated Ringers 1,000 ML IV ONE ×2 (01:59→05:35)
[2021-07-09] MEDS ORDERED: Iopamidol 755 Mg/ML 100 ML Bottle IVPUSH ONE ×2 (02:04→03:41)
[2021-07-09] MEDS ORDERED: Sodium Chloride 0.9% 10 ML SDV FLUSH ONE ×2 (02:04→03:41)
[2021-07-09] MEDS ORDERED: Sodium Chloride 0.9% 100 ML IV SCH ×2 (02:15→03:45)
[2021-07-09] MEDS ORDERED: Levofloxacin/Dextrose 5%-Water 750 MG in Premix Bag 1 BAG IV ONE (02:39)
[2021-07-09] MEDS ORDERED: LORazepam 0.5 MG Tab PO ONE ×2 (03:29→05:37)
[2021-07-09] MEDS: Lactated Ringers 1,000 ML IV SCH ×2 (03:42→19:51)
--- NOTE | 2021-07-09 09:28 | CR ---
Chest: Portable view of the chest was obtained. Comparison: Prior chest x-ray of 08/16/20. Patchy increased density is seen within both lungs. Small nodule is seen within the left lung base which appears to be calcified. Upper lungs are clear. Heart size and mediastinum are normal. Old healed left clavicle fracture is seen which is healed. No acute osseous finding is seen. Impression: 1. Slight density within both lung bases. Findings are suspicious for mild areas of possible pneumonia if patient has infectious symptoms. 2. Calcified granuloma within the left lung base. 3. Incidental bony finding as noted above. Diagnostic code #3
--- NOTE | 2021-07-09 09:38 | CT ---
CT chest Technique: Multiple axial sections were obtained from above the lung apices inferiorly through the lung bases. Intravenous contrast was utilized. Study performed as a pulmonary angiogram protocol. Comparison: Prior chest x-ray performed earlier on the same day (01:02 AM). Findings: Pulmonary arteries are not optimally opacified but no definite filling defects to indicate pulmonary embolism. Ascending aorta is slightly aneurysmal with measurement of 4.0 cm. Descending aorta is normal. Calcified mediastinal lymph nodes are seen which are benign. No pericardial thickening is seen. Visualized upper abdominal structures shows a cyst within the right kidney measuring 2.3 cm. Small hiatal hernia is noted. Lung window settings were reviewed. Patchy areas of increased density are seen within the right upper lung as well as within both lower lungs. Calcified nodule is noted within the lingula compatible with a granuloma measuring 1.1 cm. Bone window settings were reviewed which show scattered disc space narrowing within the thoracic spine with endplate spurring and mild kyphosis. Several old rib fractures are seen within the left chest which appear to be healed. Old healed left clavicle fracture is noted. Impression: 1. No definite findings of pulmonary embolism. 2. Patchy areas of increased density within the right upper lung and within both lower lungs which could represent mild areas of COVID-19 pneumonia or other areas of pneumonia. Please correlate if patient has infectious symptoms. 3. Slightly enlarged ascending aorta with AP dimension of 4.0 cm compatible with mild aneurysm. 4. Other findings as noted above which are chronic. Diagnostic code #3 I mostly agree with preliminary report from [facility] (ascending aorta finding as noted above), finalized on 07/09/21, 4:11 AM [employer], code 2
--- NOTE | 2021-07-09 09:40 | CT ---
CT chest Technique: Multiple axial sections were obtained from above the lung apices inferiorly through the lung bases. Intravenous contrast was utilized. Study has been performed as a pulmonary angiogram protocol. Comparison: Prior chest CT study performed earlier on the same day (2:28 AM). Findings: Pulmonary arteries are better opacified. No filling defects are seen to indicate pulmonary embolism. Ascending aorta is slightly prominent with AP dimension of 4.0 cm. Calcified lymph nodes are seen within the mediastinum. No pericardial thickening is seen. Heart does not appear enlarged. Stable cyst is noted within the right kidney. Scattered areas of parenchymal density are seen within the right upper lung and within both lower lungs. Stable calcified granuloma is seen within the lingula. Bone window settings were reviewed which appear stable from prior exam. Impression: 1. No findings of pulmonary embolism. 2. Patchy areas of increased density within the right upper and within both lower lungs. As mentioned on prior exam, this is suggestive of either COVID-19 pneumonia or other types of pneumonia. 3. Slight aneurysmal dilatation of the ascending aorta. 4. Stable bony findings as well as other findings which are chronic. Diagnostic code #3 I agree with preliminary report from [facility], finalized on 07/09/21, 5:43 AM [employer]
--- NOTE | 2021-07-09 11:52 | PCM.HP.2 ---
H&P History of Present Illness - General Date of Service: 07/09/21 Admit Problem/Dx: Admission Diagnosis/Problem Admission Diagnosis/Problem Pneumonia Source of Information: Patient, Old Records. No: Family History Limitations: Reports: Altered Mental Status - History of Present Illness Initial Comments - Free Text/Narative: The patient is a 61-year-old gentleman from a [facility] that was brought into the emergency department after he was found to have worsening cough and low oxygen levels. The patient has a significant psychiatric history and has been in a psychiatric hill at [facility]. The patient is heavily medicated and somewhat confused. He is a poor historian. Most of the information is been taken from his previous charting as well as prior records. It was reported that the patient's oxygen levels were low around 80%. Patient himself says that he has been having trouble breathing and feels short of breath. The patient's COVID-19 testing was negative. Onset of Symptoms: Reports: Unknown/Unsure Duration of Symptoms: Reports: Day(s): Location: Reports: Generalized Quality: Reports: Ache Improves with: Reports: None Worsens with: Reports: None Context: Reports: Sick Contact, Other (longterm) Associated Symptoms: Reports: Cough, Fever/Chills, Loss of Appetite. Denies: Nausea/Vomiting - Related Data Allergies/Adverse Reactions: Allergies Allergy/AdvReac Type Severity Reaction Status Date / Time acetaminophen [From Tylenol] Allergy Severe Facial Verified 07/09/21 12:26 Swelling Penicillins Allergy Severe Facial Verified 07/09/21 12:26 Swelling naproxen [From Aleve] Allergy Mild Cannot Verified 07/09/21 12:26 Remember Home Medications: Home Meds Losartan [Cozaar] 100 mg PO DAILY 01/24/19 [History] atorvaSTATin [Lipitor] 20 mg PO BEDTIME 01/26/19 [History] Calcium Carbonate [Tums] 500 mg PO BID 05/18/20 [History] Cholecalciferol (Vitamin D3) [Vitamin D3] 1,000 unit PO DAILY 05/18/20 [History] Furosemide [Lasix] 20 mg PO DAILY 05/18/20 [History] Ibuprofen 600 mg PO Q6HR PRN 05/18/20 [History] LORazepam [Ativan] 0.5 mg PO QID 05/18/20 [History] Melatonin 9 mg PO BEDTIME 05/18/20 [History] Mirtazapine [Remeron] 7.5 mg PO BEDTIME 05/18/20 [History] Multivit-Min/FA/Lycopen/Lutein [Certavite Sr with Lutein Tab] 1 each PO DAILY 05/18/20 [History] bisacodyL [Dulcolax] 5 mg PO BID PRN 05/18/20 [History] polyethylene glycoL 3350 [MiraLAX] 17 gm PO DAILY PRN 05/18/20 [History] risperiDONE [Risperdal] 3 mg PO BID 05/18/20 [History] Ipratropium/Albuterol Sulfate [Iprat-Albut 0.5-3(2.5) MG/3 ML] 1 inhalation INH QID PRN 07/18/20 [History] Magnesium Hydroxide [Milk of Magnesia] 30 ml PO BEDTIME 08/16/20 [History] metFORMIN [Glucophage XR] 1,000 mg PO BID 08/16/20 [History] Freeburn/Min Oil/Maria Esther/Wool Alcoh [Eucerin Creme] 1 dose TOP BID 07/09/21 [History] Menthol/Selenium Sulfide [Selsun Blue 1% Shampoo] 118 ml .XX MOTH 07/09/21 [History] OLANZapine [ZyPREXA] 10 mg PO DAILY 07/09/21 [History] Tamsulosin [Tamsulosin 24 Hr] 0.4 mg PO DAILY 07/09/21 [History] fluvoxaMINE [fluvoxaMINE Maleate] 150 mg PO BID 07/09/21 [History] Past Medical History HEENT History: Reports: Other (See Below) Cardiovascular History: Reports: High Cholesterol, Hypertension Respiratory History: Reports: Other (See Below) Other Respiratory History: acute respiratory disease (+ COVID) Gastrointestinal History: Reports: Chronic Constipation Other Gastrointestinal History: polyphagia, dysphagia Genitourinary History: Reports: BPH Musculoskeletal History: Reports: None Neurological History: Reports: Alzheimers Disease, Other (See Below) Other Neuro History: restlessness/agitation Psychiatric History: Reports: Anxiety, Psychosis, Other (See Below) Other Psychiatric History: delusions, wandering, hoarding disorder, mild intellectual disabilities Endocrine/Metabolic History: Reports: Diabetes, Type II Hematologic History: Reports: None Immunologic History: Reports: None Oncologic (Cancer) History: Reports: None Dermatologic History: Reports: Other (See Below) Other Dermatologic History: xerosis cutis - Infectious Disease History Infectious Disease History: Reports: Chicken Pox, Measles, Mumps, Novel Coronavirus - Past Surgical History Head Surgeries/Procedures: Reports: None HEENT Surgical History: Reports: None Cardiovascular Surgical History: Reports: None Respiratory Surgical History: Reports: None GI Surgical History: Reports: None Male Surgical History: Reports: None Endocrine Surgical History: Reports: None Neurological Surgical History: Reports: None Musculoskeletal Surgical History: Reports: ORIF Other Musculoskeletal Surgeries/Procedures:: ORIF of Right Foot. Brace in place Oncologic Surgical History: Reports: None Dermatological Surgical History: Reports: None Social & Family History - Family History Family Medical History: No Pertinent Family History - Tobacco Use Tobacco Use Status *Q: Never Tobacco User Second Hand Smoke Exposure: No - Caffeine Use Caffeine Use: Reports: Coffee - Recreational Drug Use Recreational Drug Use: No - Living Situation & Occupation Living situation: Reports: Single, Extended Care Facility ([facility]) Occupation: Disabled H&P Review of Systems - Review of Systems: Review Of Systems: Unable To Obtain Reason Not Obtained: The patient is confused and medicated for his psychiatric issues. Exam - Exam Exam: See Below - Vital Signs Vital Signs: Last Vital Signs Temp 37.4 C 07/09/21 06:00 Pulse 100 07/09/21 00:30 Resp 20 07/09/21 00:30 BP 118/83 07/09/21 00:30 Pulse Ox 90 L 07/09/21 00:30 Weight: 78.562 kg - Exam Quality Assessment: Supplemental Oxygen, DVT Prophylaxis General: Alert, Oriented, Sedated HEENT: Conjunctiva Clear, EACs Clear, EOMI, Nares Patent, Posterior Pharynx Clear. No: Mucosa Moist & [place] (Dry) Neck: Supple, Trachea Midline Lungs: Decreased Breath Sounds, Crackles (Widely scattered) Cardiovascular: Regular Rhythm, Tachycardia GI/Abdominal Exam: Normal Bowel Sounds, Soft, Non-Tender, No Distention (Male) Exam: Deferred Rectal (Males) Exam: Deferred Back Exam: Normal Inspection, Full Range of Motion Extremities: Normal Inspection, No Pedal Edema Skin: Warm, Dry, Intact Neuro Extensive - Mental Status: Alert, Oriented x3 Psychiatric: Alert, Normal Affect - Patient Data Lab Results Last 24 hrs: Laboratory Results - last 24 hr 07/09/21 07/09/21 07/09/21 Range/Units 00:56 00:56 00:56 WBC 12.53 H (4.23-9.07) K/mm3 RBC 4.06 L (4.63-6.08) M/mm3 Hgb 12.1 L (13.7-17.5) gm/dl Hct 38.7 L (40.1-51.0) % MCV 95.3 H (79.0-92.2) fl MCH 29.8 (25.7-32.2) pg MCHC 31.3 L (32.2-35.5) g/dl RDW Std Deviation 46.1 H (35.1-43.9) fL Plt Count 226 (163-337) K/mm3 MPV 10.1 (9.4-12.3) fl Neut % (Auto) 87.5 H (34.0-67.9) % Lymph % (Auto) 5.8 L (21.8-53.1) % [place] % (Auto) 6.0 (5.3-12.2) % Eos % (Auto) 0.1 L (0.8-7.0) Baso % (Auto) 0.2 (0.1-1.2) % Neut # (Auto) 10.97 H (1.78-5.38) K/mm3 Lymph # (Auto) 0.73 L (1.32-3.57) K/mm3 [place] # (Auto) 0.75 (0.30-0.82) K/mm3 Eos # (Auto) 0.01 L (0.04-0.54) K/mm3 Baso # (Auto) 0.02 (0.01-0.08) K/mm3 PT (9.7-12.0) SECONDS INR APTT (21.7-31.4) SECONDS D-Dimer, Quantitative (0.19-0.50) mg/L Sodium 141 (136-145) mEq/L Potassium 4.3 (3.5-5.1) mEq/L Chloride 102 (98-107) mEq/L Carbon Dioxide 20 L (21-32) mEq/L Anion Gap 23.3 H (5-15) BUN 24 H (7-18) mg/dL Creatinine 0.9 (0.7-1.3) mg/dL Est Cr Clr Drug Dosing TNP Estimated GFR (MDRD) > 60 (>60) mL/min BUN/Creatinine Ratio 26.7 H (14-18) Glucose 206 H (70-99) mg/dL Lactic Acid 10.0 H* (0.4-2.0) mmol/L Calcium 10.0 (8.5-10.1) mg/dL Total Bilirubin 0.4 (0.2-1.0) mg/dL AST 18 (15-37) U/L ALT 23 (16-63) U/L Alkaline Phosphatase 79 (46-116) U/L Troponin I (0.00-0.056) ng/mL Total Protein 7.8 (6.4-8.2) g/dl Albumin 3.7 (3.4-5.0) g/dl Globulin 4.1 gm/dL Albumin/Globulin Ratio 0.9 L (1-2) Mycoplasma pneumon IgM (NEGATIVE) SARS-CoV-2 RNA (CHRIS) (NEGATIVE) MRSA (PCR) 07/09/21 07/09/21 07/09/21 Range/Units 00:56 00:56 00:56 WBC (4.23-9.07) K/mm3 RBC (4.63-6.08) M/mm3 Hgb (13.7-17.5) gm/dl Hct (40.1-51.0) % MCV (79.0-92.2) fl MCH (25.7-32.2) pg MCHC (32.2-35.5) g/dl RDW Std Deviation (35.1-43.9) fL Plt Count (163-337) K/mm3 MPV (9.4-12.3) fl Neut % (Auto) (34.0-67.9) % Lymph % (Auto) (21.8-53.1) % [place] % (Auto) (5.3-12.2) % Eos % (Auto) (0.8-7.0) Baso % (Auto) (0.1-1.2) % Neut # (Auto) (1.78-5.38) K/mm3 Lymph # (Auto) (1.32-3.57) K/mm3 [place] # (Auto) (0.30-0.82) K/mm3 Eos # (Auto) (0.04-0.54) K/mm3 Baso # (Auto) (0.01-0.08) K/mm3 PT 10.9 (9.7-12.0) SECONDS INR 0.98 APTT 23.6 (21.7-31.4) SECONDS D-Dimer, Quantitative 1.01 H (0.19-0.50) mg/L Sodium (136-145) mEq/L Potassium (3.5-5.1) mEq/L Chloride (98-107) mEq/L Carbon Dioxide (21-32) mEq/L Anion Gap (5-15) BUN (7-18) mg/dL Creatinine (0.7-1.3) mg/dL Est Cr Clr Drug Dosing Estimated GFR (MDRD) (>60) mL/min BUN/Creatinine Ratio (14-18) Glucose (70-99) mg/dL Lactic Acid (0.4-2.0) mmol/L Calcium (8.5-10.1) mg/dL Total Bilirubin (0.2-1.0) mg/dL AST (15-37) U/L ALT (16-63) U/L Alkaline Phosphatase (46-116) U/L Troponin I < 0.017 (0.00-0.056) ng/mL Total Protein (6.4-8.2) g/dl Albumin (3.4-5.0) g/dl Globulin gm/dL Albumin/Globulin Ratio (1-2) Mycoplasma pneumon IgM (NEGATIVE) SARS-CoV-2 RNA (CHRIS) (NEGATIVE) MRSA (PCR) 07/09/21 07/09/21 07/09/21 Range/Units 00:56 02:42 02:46 WBC (4.23-9.07) K/mm3 RBC (4.63-6.08) M/mm3 Hgb (13.7-17.5) gm/dl Hct (40.1-51.0) % MCV (79.0-92.2) fl MCH (25.7-32.2) pg MCHC (32.2-35.5) g/dl RDW Std Deviation (35.1-43.9) fL Plt Count (163-337) K/mm3 MPV (9.4-12.3) fl Neut % (Auto) (34.0-67.9) % Lymph % (Auto) (21.8-53.1) % [place] % (Auto) (5.3-12.2) % Eos % (Auto) (0.8-7.0) Baso % (Auto) (0.1-1.2) % Neut # (Auto) (1.78-5.38) K/mm3 Lymph # (Auto) (1.32-3.57) K/mm3 [place] # (Auto) (0.30-0.82) K/mm3 Eos # (Auto) (0.04-0.54) K/mm3 Baso # (Auto) (0.01-0.08) K/mm3 PT (9.7-12.0) SECONDS INR APTT (21.7-31.4) SECONDS D-Dimer, Quantitative (0.19-0.50) mg/L Sodium (136-145) mEq/L Potassium (3.5-5.1) mEq/L Chloride (98-107) mEq/L Carbon Dioxide (21-32) mEq/L Anion Gap (5-15) BUN (7-18) mg/dL Creatinine (0.7-1.3) mg/dL Est Cr Clr Drug Dosing Estimated GFR (MDRD) (>60) mL/min BUN/Creatinine Ratio (14-18) Glucose (70-99) mg/dL Lactic Acid (0.4-2.0) mmol/L Calcium (8.5-10.1) mg/dL Total Bilirubin (0.2-1.0) mg/dL AST (15-37) U/L ALT (16-63) U/L Alkaline Phosphatase (46-116) U/L Troponin I (0.00-0.056) ng/mL Total Protein (6.4-8.2) g/dl Albumin (3.4-5.0) g/dl Globulin gm/dL Albumin/Globulin Ratio (1-2) Mycoplasma pneumon IgM Negative (NEGATIVE) SARS-CoV-2 RNA (CHRIS) Negative (NEGATIVE) MRSA (PCR) Negative 07/09/21 07/09/21 07/09/21 Range/Units 03:40 06:09 06:09 WBC (4.23-9.07) K/mm3 RBC (4.63-6.08) M/mm3 Hgb (13.7-17.5) gm/dl Hct (40.1-51.0) % MCV (79.0-92.2) fl MCH (25.7-32.2) pg MCHC (32.2-35.5) g/dl RDW Std Deviation (35.1-43.9) fL Plt Count (163-337) K/mm3 MPV (9.4-12.3) fl Neut % (Auto) (34.0-67.9) % Lymph % (Auto) (21.8-53.1) % [place] % (Auto) (5.3-12.2) % Eos % (Auto) (0.8-7.0) Baso % (Auto) (0.1-1.2) % Neut # (Auto) (1.78-5.38) K/mm3 Lymph # (Auto) (1.32-3.57) K/mm3 [place] # (Auto) (0.30-0.82) K/mm3 Eos # (Auto) (0.04-0.54) K/mm3 Baso # (Auto) (0.01-0.08) K/mm3 PT (9.7-12.0) SECONDS INR APTT (21.7-31.4) SECONDS D-Dimer, Quantitative (0.19-0.50) mg/L Sodium 138 (136-145) mEq/L Potassium 4.0 (3.5-5.1) mEq/L Chloride 102 (98-107) mEq/L Carbon Dioxide 24 (21-32) mEq/L Anion Gap 16.0 H (5-15) BUN 20 H (7-18) mg/dL Creatinine 0.8 (0.7-1.3) mg/dL Est Cr Clr Drug Dosing 93.81 Estimated GFR (MDRD) > 60 (>60) mL/min BUN/Creatinine Ratio 25.0 H (14-18) Glucose 156 H (70-99) mg/dL Lactic Acid 4.3 H* 4.3 H* (0.4-2.0) mmol/L Calcium 8.8 (8.5-10.1) mg/dL Total Bilirubin (0.2-1.0) mg/dL AST (15-37) U/L ALT (16-63) U/L Alkaline Phosphatase (46-116) U/L Troponin I (0.00-0.056) ng/mL Total Protein (6.4-8.2) g/dl Albumin (3.4-5.0) g/dl Globulin gm/dL Albumin/Globulin Ratio (1-2) Mycoplasma pneumon IgM (NEGATIVE) SARS-CoV-2 RNA (CHRIS) (NEGATIVE) MRSA (PCR) 07/09/21 Range/Units 09:35 WBC (4.23-9.07) K/mm3 RBC (4.63-6.08) M/mm3 Hgb (13.7-17.5) gm/dl Hct (40.1-51.0) % MCV (79.0-92.2) fl MCH (25.7-32.2) pg MCHC (32.2-35.5) g/dl RDW Std Deviation (35.1-43.9) fL Plt Count (163-337) K/mm3 MPV (9.4-12.3) fl Neut % (Auto) (34.0-67.9) % Lymph % (Auto) (21.8-53.1) % [place] % (Auto) (5.3-12.2) % Eos % (Auto) (0.8-7.0) Baso % (Auto) (0.1-1.2) % Neut # (Auto) (1.78-5.38) K/mm3 Lymph # (Auto) (1.32-3.57) K/mm3 [place] # (Auto) (0.30-0.82) K/mm3 Eos # (Auto) (0.04-0.54) K/mm3 Baso # (Auto) (0.01-0.08) K/mm3 PT (9.7-12.0) SECONDS INR APTT (21.7-31.4) SECONDS D-Dimer, Quantitative (0.19-0.50) mg/L Sodium (136-145) mEq/L Potassium (3.5-5.1) mEq/L Chloride (98-107) mEq/L Carbon Dioxide (21-32) mEq/L Anion Gap (5-15) BUN (7-18) mg/dL Creatinine (0.7-1.3) mg/dL Est Cr Clr Drug Dosing Estimated GFR (MDRD) (>60) mL/min BUN/Creatinine Ratio (14-18) Glucose (70-99) mg/dL Lactic Acid 2.9 H* (0.4-2.0) mmol/L Calcium (8.5-10.1) mg/dL Total Bilirubin (0.2-1.0) mg/dL AST (15-37) U/L ALT (16-63) U/L Alkaline Phosphatase (46-116) U/L Troponin I (0.00-0.056) ng/mL Total Protein (6.4-8.2) g/dl Albumin (3.4-5.0) g/dl Globulin gm/dL Albumin/Globulin Ratio (1-2) Mycoplasma pneumon IgM (NEGATIVE) SARS-CoV-2 RNA (CHRIS) (NEGATIVE) MRSA (PCR) Result Diagrams: 07/09/21 00:56 07/09/21 06:09 Sepsis Event Note - Focused Exam Vital Signs: Vital Signs Temp Pulse Resp BP Pulse Ox 07/09/21 06:00 37.4 C 07/09/21 00:30 36.2 C 100 20 118/83 90 L - Problem List (1) Acute respiratory failure SNOMED Code(s): 22957467 ICD Code: J96.00 - ACUTE RESPIRATORY FAILURE, UNSP W HYPOXIA OR HYPERCAPNIA Status: Acute Priority: High Current Visit: Yes Qualifiers: Respiratory failure complication: hypoxia Qualified Code(s): J96.01 - Acute respiratory failure with hypoxia (2) Pneumonia SNOMED Code(s): 694356750 ICD Code: J18.9 - PNEUMONIA, UNSPECIFIED ORGANISM Status: Acute Priority: High Current Visit: Yes Qualifiers: Pneumonia type: due to unspecified organism Laterality: unspecified laterality Lung location: lower lobe of lung Qualified Code(s): J18.9 - Pneumonia, unspecified organism (3) Delayed emotional development SNOMED Code(s): 157292686 ICD Code: F88 - OTHER DISORDERS OF PSYCHOLOGICAL DEVELOPMENT Status: Chronic Priority: Medium Current Visit: Yes (4) Diabetes mellitus type 2 in obese SNOMED Code(s): 91215961 ICD Code: E11.69 - TYPE 2 DIABETES MELLITUS WITH OTHER SPECIFIED COMPLICATIO N; E66.9 - OBESITY, UNSPECIFIED Status: Chronic Priority: High Current Visit: Yes (5) Hypertension SNOMED Code(s): 02099987 ICD Code: I10 - ESSENTIAL (PRIMARY) HYPERTENSION Status: Chronic Priority: High Current Visit: Yes Qualifiers: Hypertension type: primary hypertension Qualified Code(s): I10 - Essential (primary) hypertension (6) Total self-care deficit SNOMED Code(s): 40346413 ICD Code: R41.89 - OTH SYMPTOMS AND SIGNS W COGNITIVE FUNCTIONS AND AWARENESS Status: Chronic Priority: High Current Visit: Yes Problem List Initiated/Reviewed/Updated: Yes Orders Last 24hrs: Active Orders 24 hr Category Date Time Status Patient Status [ADT] Routine ADT 07/09/21 10:47 Active BLOOD CULTURE [MREF] Stat Lab 07/09/21 00:56 Received BLOOD CULTURE [MREF] Stat Lab 07/09/21 01:07 Received REFLEX LACTIC ACID YES OR NO [CHEM] Routine Lab 07/09/21 10:08 Received Lactated Ringers [Ringers, Lactated] 1,000 ml Med 07/09/21 02:00 Active IV ASDIRECTED Sodium Chloride 0.9% [Normal Saline] 100 ml Med 07/09/21 02:15 Active IV ASDIRECTED Sodium Chloride 0.9% [Normal Saline] 100 ml Med 07/09/21 03:45 Active IV ASDIRECTED Blood Culture x2 Reflex Set [OM.PC] Stat Oth 07/09/21 00:43 Ordered Medication Orders Lactated Ringer's (Ringers, Lactated) 1,000 mls @ 150 mls/hr IV ASDIRECTED CHRIS Last Infusion: 07/09/21 04:38 Dose: 999 mls/hr Documented by: Admin: 07/09/21 03:42 Dose: 150 mls/hr Documented by: SAYRA Sodium Chloride (Normal Saline) 100 mls @ 70 mls/min IV ASDIRECTED CHRIS Last Admin: 07/09/21 02:41 Dose: 70 mls/min Documented by: BUBBA Sodium Chloride (Normal Saline) 100 mls @ 70 mls/min IV ASDIRECTED CHRIS Last Admin: 07/09/21 04:20 Dose: 70 mls/min Documented by: BUBBA Assessment/Plan Comment:: The patient is a 61-year-old gentleman who is a resident of psychiatric facility at [facility]. Clearly because of the skilled needs the patient has been admitted as an inpatient. He has been admitted through the emergency department with acute respiratory failure due to pneumonia. He has been tested negative for COVID-19 infection. The patient had been started on Levaquin. The patient will also be kept on Levaquin 500 mg IV daily starting tomorrow. The patient will be on oxygen to help keep his saturations around 90 to 92%. He is also diabetic and I have ordered a diabetic diet for him. He will have insulin sliding scale. The patient's blood sugar will be checked 3 times a day and at bedtime. He is also anticoagulated with the use of Lovenox 40 mg subcutaneous daily for the DVT prophylaxis. PT OT has been ordered for the patient. Once the patient's oxygen demands have improved he will likely be appropriate for return to psychiatric facility. - Mortality Measure Prognosis:: Poor
[2021-07-09] MEDS ORDERED: Albuterol/Ipratropium 3.0-0.5 MG/3 ML Neb Soln INH PRN (12:24)
[2021-07-09] MEDS ORDERED: Polyethylene Glycol 3350 Powder 17 GM Packet PO PRN (12:24)
[2021-07-09] MEDS ORDERED: Ondansetron 4 MG Tab.DIS PO PRN (12:28)
[2021-07-09] MEDS ORDERED: Morphine 2 MG/ML SYRINGE IVPUSH PRN (12:28)
[2021-07-09] MEDS ORDERED: oxyCODONE 5 MG Tab PO PRN (12:28)
[2021-07-09] MEDS ORDERED: Albuterol/Ipratropium 3.0-0.5 MG/3 ML Neb Soln NEB PRN (12:28)
[2021-07-09] MEDS ORDERED: Levofloxacin/Dextrose 5%-Water 500 MG in Premix Bag 1 BAG IV SCH (12:30)
[2021-07-09] MEDS: LORazepam 0.5 MG Tab PO SCH ×3 (14:49→20:27)
[2021-07-09] MEDS: Insulin Regular, Human 100 Units/ML 3 ML Vial SUBCUT SCH ×2 (14:50→19:51)
[2021-07-09] MEDS: Magnesium Hydroxide 400 MG/5 ML Susp 30 ML Cup PO SCH (20:25)
[2021-07-09] MEDS: Melatonin 3 MG Tab PO SCH (20:25)
[2021-07-09] MEDS: risperiDONE 1 MG Tab PO SCH (20:25)
[2021-07-09] MEDS: Mirtazapine 15 MG Tab PO SCH (20:26)
[2021-07-09] MEDS: fluvoxaMINE 50 MG Tab PO SCH (20:27)
[2021-07-09] MEDS: Mineral Oil/White Petrolatum Crm 113 GM Jar TOP SCH (20:28)
[2021-07-10] MEDS: Lactated Ringers 1,000 ML IV SCH ×3 (02:18→16:28)
[2021-07-10] MEDS: Levofloxacin/Dextrose 5%-Water 500 MG in Premix Bag 1 BAG IV SCH (02:32)
--- NOTE | 2021-07-10 07:56 | PCM.PN ---
- General Info Date of Service: 07/10/21 Admission Dx/Problem (Free Text): Admission Diagnosis/Problem Admission Diagnosis/Problem Pneumonia Subjective Update: The patient is a 61-year-old gentleman who [facility] department due to worsening cough and low oxygen levels. The the patient has a significant psychiatric history. He is somewhat responsive but he is medicated. The patient is tolerating diet. The patient replies primarily with shaking and nodding of head although he can speak slowly. Functional Status: Reports: Pain Controlled, Tolerating Diet - Review of Systems Systems Review Comment:: The patient's review of system is not reliable due to his psychiatric illness and medications. - Patient Data Vitals - Most Recent: Last Vital Signs Temp 36.9 C 07/10/21 05:36 Pulse 81 07/10/21 05:40 Resp 18 07/10/21 05:36 BP 125/93 H 07/10/21 05:36 Pulse Ox 95 07/10/21 05:40 Weight - Most Recent: 81.102 kg I&O - Last 24 Hours: Intake & Output 07/09/21 07/10/21 07/10/21 22:59 06:59 14:59 Intake Total 320 100 Balance 320 100 Lab Results Last 24 Hours: Laboratory Results - last 24 hr 07/09/21 07/09/21 07/09/21 Range/Units 09:35 12:28 14:36 WBC (4.23-9.07) K/mm3 RBC (4.63-6.08) M/mm3 Hgb (13.7-17.5) gm/dl Hct (40.1-51.0) % MCV (79.0-92.2) fl MCH (25.7-32.2) pg MCHC (32.2-35.5) g/dl RDW Std Deviation (35.1-43.9) fL Plt Count (163-337) K/mm3 MPV (9.4-12.3) fl Neut % (Auto) (34.0-67.9) % Lymph % (Auto) (21.8-53.1) % [place] % (Auto) (5.3-12.2) % Eos % (Auto) (0.8-7.0) Baso % (Auto) (0.1-1.2) % Neut # (Auto) (1.78-5.38) K/mm3 Lymph # (Auto) (1.32-3.57) K/mm3 [place] # (Auto) (0.30-0.82) K/mm3 Eos # (Auto) (0.04-0.54) K/mm3 Baso # (Auto) (0.01-0.08) K/mm3 D-Dimer, Quantitative (0.19-0.50) mg/L Sodium (136-145) mEq/L Potassium (3.5-5.1) mEq/L Chloride (98-107) mEq/L Carbon Dioxide (21-32) mEq/L Anion Gap (5-15) BUN (7-18) mg/dL Creatinine (0.7-1.3) mg/dL Est Cr Clr Drug Dosing mL/min Estimated GFR (MDRD) (>60) mL/min BUN/Creatinine Ratio (14-18) Glucose (70-99) mg/dL POC Glucose 154 H (70-99) mg/dL Lactic Acid 2.9 H* 2.4 H* (0.4-2.0) mmol/L Calcium (8.5-10.1) mg/dL Magnesium (1.8-2.4) mg/dL Total Bilirubin (0.2-1.0) mg/dL AST (15-37) U/L ALT (16-63) U/L Alkaline Phosphatase (46-116) U/L Total Protein (6.4-8.2) g/dl Albumin (3.4-5.0) g/dl Globulin gm/dL Albumin/Globulin Ratio (1-2) 07/09/21 07/09/21 07/10/21 Range/Units 15:48 16:44 06:30 WBC 8.56 (4.23-9.07) K/mm3 RBC 3.19 L (4.63-6.08) M/mm3 Hgb 9.5 L D (13.7-17.5) gm/dl Hct 31.0 L (40.1-51.0) % MCV 97.2 H (79.0-92.2) fl MCH 29.8 (25.7-32.2) pg MCHC 30.6 L (32.2-35.5) g/dl RDW Std Deviation 49.8 H (35.1-43.9) fL Plt Count 173 (163-337) K/mm3 MPV 9.7 (9.4-12.3) fl Neut % (Auto) 74.9 H (34.0-67.9) % Lymph % (Auto) 12.7 L (21.8-53.1) % [place] % (Auto) 9.9 (5.3-12.2) % Eos % (Auto) 1.9 (0.8-7.0) Baso % (Auto) 0.2 (0.1-1.2) % Neut # (Auto) 6.41 H (1.78-5.38) K/mm3 Lymph # (Auto) 1.09 L (1.32-3.57) K/mm3 [place] # (Auto) 0.85 H (0.30-0.82) K/mm3 Eos # (Auto) 0.16 (0.04-0.54) K/mm3 Baso # (Auto) 0.02 (0.01-0.08) K/mm3 D-Dimer, Quantitative (0.19-0.50) mg/L Sodium (136-145) mEq/L Potassium (3.5-5.1) mEq/L Chloride (98-107) mEq/L Carbon Dioxide (21-32) mEq/L Anion Gap (5-15) BUN (7-18) mg/dL Creatinine (0.7-1.3) mg/dL Est Cr Clr Drug Dosing mL/min Estimated GFR (MDRD) (>60) mL/min BUN/Creatinine Ratio (14-18) Glucose (70-99) mg/dL POC Glucose 131 H (70-99) mg/dL Lactic Acid 1.8 (0.4-2.0) mmol/L Calcium (8.5-10.1) mg/dL Magnesium (1.8-2.4) mg/dL Total Bilirubin (0.2-1.0) mg/dL AST (15-37) U/L ALT (16-63) U/L Alkaline Phosphatase (46-116) U/L Total Protein (6.4-8.2) g/dl Albumin (3.4-5.0) g/dl Globulin gm/dL Albumin/Globulin Ratio (1-2) 07/10/21 07/10/21 07/10/21 Range/Units 06:30 06:30 07:01 WBC (4.23-9.07) K/mm3 RBC (4.63-6.08) M/mm3 Hgb (13.7-17.5) gm/dl Hct (40.1-51.0) % MCV (79.0-92.2) fl MCH (25.7-32.2) pg MCHC (32.2-35.5) g/dl RDW Std Deviation (35.1-43.9) fL Plt Count (163-337) K/mm3 MPV (9.4-12.3) fl Neut % (Auto) (34.0-67.9) % Lymph % (Auto) (21.8-53.1) % [place] % (Auto) (5.3-12.2) % Eos % (Auto) (0.8-7.0) Baso % (Auto) (0.1-1.2) % Neut # (Auto) (1.78-5.38) K/mm3 Lymph # (Auto) (1.32-3.57) K/mm3 [place] # (Auto) (0.30-0.82) K/mm3 Eos # (Auto) (0.04-0.54) K/mm3 Baso # (Auto) (0.01-0.08) K/mm3 D-Dimer, Quantitative 0.59 H (0.19-0.50) mg/L Sodium 141 (136-145) mEq/L Potassium 3.9 (3.5-5.1) mEq/L Chloride 106 (98-107) mEq/L Carbon Dioxide 32 (21-32) mEq/L Anion Gap 6.9 (5-15) BUN 14 (7-18) mg/dL Creatinine 0.7 (0.7-1.3) mg/dL Est Cr Clr Drug Dosing 107.21 mL/min Estimated GFR (MDRD) > 60 (>60) mL/min BUN/Creatinine Ratio 20.0 H (14-18) Glucose 126 H (70-99) mg/dL POC Glucose 118 H (70-99) mg/dL Lactic Acid (0.4-2.0) mmol/L Calcium 8.5 (8.5-10.1) mg/dL Magnesium 2.1 (1.8-2.4) mg/dL Total Bilirubin 0.5 (0.2-1.0) mg/dL AST 12 L (15-37) U/L ALT 17 (16-63) U/L Alkaline Phosphatase 61 (46-116) U/L Total Protein 5.6 L (6.4-8.2) g/dl Albumin 2.8 L (3.4-5.0) g/dl Globulin 2.8 gm/dL Albumin/Globulin Ratio 1.0 (1-2) Akash Results Last 24 Hours: Microbiology 07/09/21 01:07 Blood Culture - Preliminary Blood - Venous - Lab Draw 07/09/21 00:56 Blood Culture - Preliminary Blood - Venous Med Orders - Current: Current Medications Albuterol/Ipratropium (Albuterol/Ipratropium 3.0-0.5 Mg/3 Ml Neb Soln) 3 ml NEB Q4H PRN PRN Reason: Shortness Of Breath/wheezing Enoxaparin Sodium (Enoxaparin 40 Mg/0.4 Ml Syringe) 40 mg SUBCUT DAILY [facility] Fluvoxamine Maleate (Fluvoxamine 50 Mg Tab) 150 mg PO BID [facility] Last Admin: 07/09/21 20:27 Dose: 150 mg Documented by: Furosemide (Furosemide 20 Mg Tab) 20 mg PO DAILY [facility] Lactated Ringer's (Ringers, Lactated) 1,000 mls @ 150 mls/hr IV ASDIRECTED [facility] Last Admin: 07/10/21 02:18 Dose: 150 mls/hr Documented by: Levofloxacin/Dextrose 500 mg/ (Premix) 100 mls @ 100 mls/hr IV Q24H [facility] Last Admin: 07/10/21 02:32 Dose: 100 mls/hr Documented by: Insulin Human Regular (Insulin Regular, Human 100 Units/Ml 3 Ml Vial) 0 unit SUBCUT TIDPC [facility]; Protocol Last Admin: 07/09/21 19:51 Dose: Not Given Documented by: Lorazepam (Lorazepam 0.5 Mg Tab) 0.5 mg PO QID [facility] Last Admin: 07/09/21 20:27 Dose: 0.5 mg Documented by: Losartan Potassium (Losartan 100 Mg Tab) 100 mg PO DAILY [facility] Magnesium Hydroxide (Magnesium Hydroxide 400 Mg/5 Ml Susp 30 Ml Cup) 30 ml PO BEDTIME [facility] Last Admin: 07/09/21 20:25 Dose: 30 ml Documented by: Melatonin (Melatonin 3 Mg Tab) 9 mg PO BEDTIME [facility] Last Admin: 07/09/21 20:25 Dose: 9 mg Documented by: Mineral Oil/White Petrolatum (Mineral Oil/White Petrolatum Crm 113 Gm Jar) 0 gm TOP BID [facility] Last Admin: 07/09/21 20:28 Dose: 1 applic Documented by: Mirtazapine (Mirtazapine 15 Mg Tab) 7.5 mg PO BEDTIME [facility] Last Admin: 07/09/21 20:26 Dose: 7.5 mg Documented by: Morphine Sulfate (Morphine 2 Mg/Ml Syringe) 2 mg IVPUSH Q2H PRN PRN Reason: Pain (severe 7-10) Stop: 07/10/21 12:28 Olanzapine (Olanzapine 5 Mg Tab) 10 mg PO DAILY [facility] Ondansetron HCl (Ondansetron 4 Mg Tab.Dis) 4 mg PO Q4H PRN PRN Reason: nausea, able to take PO Oxycodone HCl (Oxycodone 5 Mg Tab) 5 mg PO Q4H PRN PRN Reason: Pain (moderate 4-6) Polyethylene Glycol (Polyethylene Glycol 3350 Powder 17 Gm Packet) 17 gm PO DAILY PRN PRN Reason: Constipation Risperidone (Risperidone 1 Mg Tab) 3 mg PO BID [facility] Last Admin: 07/09/21 20:25 Dose: 3 mg Documented by: Tamsulosin HCl (Tamsulosin 0.4 Mg Cap.Er) 0.4 mg PO DAILY [facility] Discontinued Medications Albuterol/Ipratropium (Albuterol/Ipratropium 3.0-0.5 Mg/3 Ml Neb Soln) 3 ml INH QID PRN PRN Reason: Cough Lactated Ringer's (Ringers, Lactated) 1,000 mls @ 999 mls/hr IV .BOLUS ONE Stop: 07/09/21 02:59 Last Admin: 07/09/21 02:05 Dose: 999 mls/hr Documented by: Sodium Chloride (Normal Saline) 100 mls @ 70 mls/min IV ASDIRECTED [facility] Last Admin: 07/09/21 02:41 Dose: 70 mls/min Documented by: Levofloxacin/Dextrose 750 mg/ (Premix) 150 mls @ 100 mls/hr IV ONETIME ONE Stop: 07/09/21 04:08 Last Admin: 07/09/21 03:02 Dose: 100 mls/hr Documented by: Sodium Chloride (Normal Saline) 100 mls @ 70 mls/min IV ASDIRECTED [facility] Last Admin: 07/09/21 04:20 Dose: 70 mls/min Documented by: Lactated Ringer's (Ringers, Lactated) 1,000 mls @ 999 mls/hr IV .BOLUS ONE Stop: 07/09/21 06:35 Last Admin: 07/09/21 05:41 Dose: 999 mls/hr Documented by: Levofloxacin/Dextrose 500 mg/ (Premix) 100 mls @ 100 mls/hr IV Q24H [facility] Last Admin: 07/09/21 17:11 Dose: Not Given Documented by: Iopamidol (Iopamidol 755 Mg/Ml 100 Ml Bottle) 100 ml IVPUSH ONETIME ONE Stop: 07/09/21 02:05 Last Admin: 07/09/21 02:41 Dose: 100 ml Documented by: Iopamidol (Iopamidol 755 Mg/Ml 100 Ml Bottle) 100 ml IVPUSH ONETIME ONE Stop: 07/09/21 03:42 Last Admin: 07/09/21 04:20 Dose: 100 ml Documented by: Lorazepam (Lorazepam 0.5 Mg Tab) 0.5 mg PO ONETIME ONE Stop: 07/09/21 03:30 Last Admin: 07/09/21 03:36 Dose: 0.5 mg Documented by: Lorazepam (Lorazepam 0.5 Mg Tab) 0.5 mg PO ONETIME ONE Stop: 07/09/21 05:38 Last Admin: 07/09/21 05:41 Dose: 0.5 mg Documented by: Non-Formulary Medication (Menthol/Selenium Sulfide [Selsun Blue 1% Shampoo]) 118 ml .XX MOTH [facility] Sodium Chloride (Sodium Chloride 0.9% 10 Ml Sdv) 10 ml FLUSH ONETIME ONE Stop: 07/09/21 02:05 Last Admin: 07/09/21 02:41 Dose: 10 ml Documented by: Sodium Chloride (Sodium Chloride 0.9% 10 Ml Sdv) 10 ml FLUSH ONETIME ONE Stop: 07/09/21 03:42 Last Admin: 07/09/21 04:20 Dose: 10 ml Documented by: - Exam Quality Assessment: DVT Prophylaxis. No: Supplemental Oxygen General: Alert, Oriented, Lethargic HEENT: Pupils Equal, Pupils Reactive Neck: Supple, Trachea Midline Lungs: Clear to Auscultation, Normal Respiratory Effort Cardiovascular: Regular Rate, Regular Rhythm GI/Abdominal Exam: Normal Bowel Sounds, No Distention (Male) Exam: Deferred Back Exam: Normal Inspection, Full Range of Motion Extremities: Normal Inspection, No Pedal Edema Skin: Warm, Dry, Intact Neurological: No New Focal Deficit Psy/Mental Status: Alert - Patient Data Lab Results Last 24 hrs: Laboratory Results - last 24 hr 07/09/21 07/09/21 07/09/21 Range/Units 09:35 12:28 14:36 WBC (4.23-9.07) K/mm3 RBC (4.63-6.08) M/mm3 Hgb (13.7-17.5) gm/dl Hct (40.1-51.0) % MCV (79.0-92.2) fl MCH (25.7-32.2) pg MCHC (32.2-35.5) g/dl RDW Std Deviation (35.1-43.9) fL Plt Count (163-337) K/mm3 MPV (9.4-12.3) fl Neut % (Auto) (34.0-67.9) % Lymph % (Auto) (21.8-53.1) % [place] % (Auto) (5.3-12.2) % Eos % (Auto) (0.8-7.0) Baso % (Auto) (0.1-1.2) % Neut # (Auto) (1.78-5.38) K/mm3 Lymph # (Auto) (1.32-3.57) K/mm3 [place] # (Auto) (0.30-0.82) K/mm3 Eos # (Auto) (0.04-0.54) K/mm3 Baso # (Auto) (0.01-0.08) K/mm3 D-Dimer, Quantitative (0.19-0.50) mg/L Sodium (136-145) mEq/L Potassium (3.5-5.1) mEq/L Chloride (98-107) mEq/L Carbon Dioxide (21-32) mEq/L Anion Gap (5-15) BUN (7-18) mg/dL Creatinine (0.7-1.3) mg/dL Est Cr Clr Drug Dosing mL/min Estimated GFR (MDRD) (>60) mL/min BUN/Creatinine Ratio (14-18) Glucose (70-99) mg/dL POC Glucose 154 H (70-99) mg/dL Lactic Acid 2.9 H* 2.4 H* (0.4-2.0) mmol/L Calcium (8.5-10.1) mg/dL Magnesium (1.8-2.4) mg/dL Total Bilirubin (0.2-1.0) mg/dL AST (15-37) U/L ALT (16-63) U/L Alkaline Phosphatase (46-116) U/L Total Protein (6.4-8.2) g/dl Albumin (3.4-5.0) g/dl Globulin gm/dL Albumin/Globulin Ratio (1-2) 07/09/21 07/09/21 07/10/21 Range/Units 15:48 16:44 06:30 WBC 8.56 (4.23-9.07) K/mm3 RBC 3.19 L (4.63-6.08) M/mm3 Hgb 9.5 L D (13.7-17.5) gm/dl Hct 31.0 L (40.1-51.0) % MCV 97.2 H (79.0-92.2) fl MCH 29.8 (25.7-32.2) pg MCHC 30.6 L (32.2-35.5) g/dl RDW Std Deviation 49.8 H (35.1-43.9) fL Plt Count 173 (163-337) K/mm3 MPV 9.7 (9.4-12.3) fl Neut % (Auto) 74.9 H (34.0-67.9) % Lymph % (Auto) 12.7 L (21.8-53.1) % [place] % (Auto) 9.9 (5.3-12.2) % Eos % (Auto) 1.9 (0.8-7.0) Baso % (Auto) 0.2 (0.1-1.2) % Neut # (Auto) 6.41 H (1.78-5.38) K/mm3 Lymph # (Auto) 1.09 L (1.32-3.57) K/mm3 [place] # (Auto) 0.85 H (0.30-0.82) K/mm3 Eos # (Auto) 0.16 (0.04-0.54) K/mm3 Baso # (Auto) 0.02 (0.01-0.08) K/mm3 D-Dimer, Quantitative (0.19-0.50) mg/L Sodium (136-145) mEq/L Potassium (3.5-5.1) mEq/L Chloride (98-107) mEq/L Carbon Dioxide (21-32) mEq/L Anion Gap (5-15) BUN (7-18) mg/dL Creatinine (0.7-1.3) mg/dL Est Cr Clr Drug Dosing mL/min Estimated GFR (MDRD) (>60) mL/min BUN/Creatinine Ratio (14-18) Glucose (70-99) mg/dL POC Glucose 131 H (70-99) mg/dL Lactic Acid 1.8 (0.4-2.0) mmol/L Calcium (8.5-10.1) mg/dL Magnesium (1.8-2.4) mg/dL Total Bilirubin (0.2-1.0) mg/dL AST (15-37) U/L ALT (16-63) U/L Alkaline Phosphatase (46-116) U/L Total Protein (6.4-8.2) g/dl Albumin (3.4-5.0) g/dl Globulin gm/dL Albumin/Globulin Ratio (1-2) 07/10/21 07/10/21 07/10/21 Range/Units 06:30 06:30 07:01 WBC (4.23-9.07) K/mm3 RBC (4.63-6.08) M/mm3 Hgb (13.7-17.5) gm/dl Hct (40.1-51.0) % MCV (79.0-92.2) fl MCH (25.7-32.2) pg MCHC (32.2-35.5) g/dl RDW Std Deviation (35.1-43.9) fL Plt Count (163-337) K/mm3 MPV (9.4-12.3) fl Neut % (Auto) (34.0-67.9) % Lymph % (Auto) (21.8-53.1) % [place] % (Auto) (5.3-12.2) % Eos % (Auto) (0.8-7.0) Baso % (Auto) (0.1-1.2) % Neut # (Auto) (1.78-5.38) K/mm3 Lymph # (Auto) (1.32-3.57) K/mm3 [place] # (Auto) (0.30-0.82) K/mm3 Eos # (Auto) (0.04-0.54) K/mm3 Baso # (Auto) (0.01-0.08) K/mm3 D-Dimer, Quantitative 0.59 H (0.19-0.50) mg/L Sodium 141 (136-145) mEq/L Potassium 3.9 (3.5-5.1) mEq/L Chloride 106 (98-107) mEq/L Carbon Dioxide 32 (21-32) mEq/L Anion Gap 6.9 (5-15) BUN 14 (7-18) mg/dL Creatinine 0.7 (0.7-1.3) mg/dL Est Cr Clr Drug Dosing 107.21 mL/min Estimated GFR (MDRD) > 60 (>60) mL/min BUN/Creatinine Ratio 20.0 H (14-18) Glucose 126 H (70-99) mg/dL POC Glucose 118 H (70-99) mg/dL Lactic Acid (0.4-2.0) mmol/L Calcium 8.5 (8.5-10.1) mg/dL Magnesium 2.1 (1.8-2.4) mg/dL Total Bilirubin 0.5 (0.2-1.0) mg/dL AST 12 L (15-37) U/L ALT 17 (16-63) U/L Alkaline Phosphatase 61 (46-116) U/L Total Protein 5.6 L (6.4-8.2) g/dl Albumin 2.8 L (3.4-5.0) g/dl Globulin 2.8 gm/dL Albumin/Globulin Ratio 1.0 (1-2) Result Diagrams: 07/10/21 06:30 07/10/21 06:30 Akash Results Last 24 hrs: Microbiology 07/09/21 01:07 Blood Culture - Preliminary Blood - Venous - Lab Draw 07/09/21 00:56 Blood Culture - Preliminary Blood - Venous Sepsis Event Note - Evaluation Sepsis Screening Result: No Definite Risk - Focused Exam Vital Signs: Vital Signs Temp Pulse Resp BP Pulse Ox 07/10/21 05:40 81 95 07/10/21 05:36 36.9 C 73 18 125/93 H 90 L 07/10/21 00:49 36.5 C 71 18 107/60 93 L 07/09/21 20:24 36.4 C 77 16 124/90 93 L - Problem List & Annotations (1) Acute respiratory failure SNOMED Code(s): 77295714 Code(s): J96.00 - ACUTE RESPIRATORY FAILURE, UNSP W HYPOXIA OR HYPERCAPNIA Status: Acute Priority: High Current Visit: Yes Qualifiers: Respiratory failure complication: hypoxia Qualified Code(s): J96.01 - Acute respiratory failure with hypoxia (2) Pneumonia SNOMED Code(s): 378604372 Code(s): J18.9 - PNEUMONIA, UNSPECIFIED ORGANISM Status: Acute Priority: High Current Visit: Yes Qualifiers: Pneumonia type: due to unspecified organism Laterality: unspecified laterality Lung location: lower lobe of lung Qualified Code(s): J18.9 - Pneumonia, unspecified organism (3) Delayed emotional development SNOMED Code(s): 604482960 Code(s): F88 - OTHER DISORDERS OF PSYCHOLOGICAL DEVELOPMENT Status: Chronic Priority: Medium Current Visit: Yes (4) Diabetes mellitus type 2 in obese SNOMED Code(s): 61282313 Code(s): E11.69 - TYPE 2 DIABETES MELLITUS WITH OTHER SPECIFIED COMPLICATION; E66.9 - OBESITY, UNSPECIFIED Status: Chronic Priority: High Current Visit: Yes (5) Hypertension SNOMED Code(s): 23281511 Code(s): I10 - ESSENTIAL (PRIMARY) HYPERTENSION Status: Chronic Priority: High Current Visit: Yes Qualifiers: Hypertension type: primary hypertension Qualified Code(s): I10 - Essential (primary) hypertension (6) Total self-care deficit SNOMED Code(s): 80826948 Code(s): R41.89 - OTH SYMPTOMS AND SIGNS W COGNITIVE FUNCTIONS AND AWARENESS Status: Chronic Priority: High Current Visit: Yes - Problem List Review Problem List Initiated/Reviewed/Updated: Yes - My Orders Last 24 Hours: My Active Orders 07/09/21 12:24 polyethylene glycoL 3350 [MiraLAX] 17 gm PO DAILY PRN 07/09/21 12:28 Cardiac Monitoring [RC] CONTINUOUS Oxygen Therapy [RC] PRN RT Aerosol Therapy [RC] ASDIRECTED Up ad Antonia [RC] BID VTE/DVT Education [RC] DAILY Vital Signs [RC] Q4HR Albuterol/Ipratropium [DuoNeb 3.0-0.5 MG/3 ML] 3 ml NEB Q4H PRN Morphine 2 mg IVPUSH Q2H PRN Ondansetron [Zofran ODT] 4 mg PO Q4H PRN oxyCODONE 5 mg PO Q4H PRN 07/09/21 12:54 Blood Glucose Check, Bedside [RC] TIDMEALS 07/09/21 13:00 Insulin Regular, Human [HumuLIN R] See Protocol SUBCUT TIDPC LORazepam [Ativan] 0.5 mg PO QID 07/09/21 16:20 Consult to Speech Language Pathology [SIPHON OPERATOR Evaluation and Treatment] [CONS] Routine 07/09/21 16:27 Resuscitation Status Routine 07/09/21 Dinner Consistent Carbohydrate Diet [DIET] Mechanical Soft Diet [DIET] 07/09/21 21:00 Magnesium Hydroxide [Milk of Magnesia] 30 ml PO BEDTIME Melatonin 9 mg PO BEDTIME Mineral Oil/Petrolatum,White [Hydrocerin Crm] 0 gm TOP BID Mirtazapine [Remeron] 7.5 mg PO BEDTIME fluvoxaMINE 150 mg PO BID risperiDONE [RisperiDAL] 3 mg PO BID 07/10/21 03:00 Levofloxacin/Dextrose 5%-Water [Levaquin in D5W 500 MG/100 ML] 500 mg Premix Bag 1 bag IV Q24H 07/10/21 06:30 C-REACTIVE PROTEIN [CHEM] AM COMPREHENSIVE METABOLIC PN,CMP [CHEM] AM MAGNESIUM [CHEM] AM 07/10/21 09:00 Enoxaparin [Lovenox] 40 mg SUBCUT DAILY Furosemide [Lasix] 20 mg PO DAILY Losartan [Cozaar] 100 mg PO DAILY OLANZapine [ZyPREXA] 10 mg PO DAILY Tamsulosin [Flomax] 0.4 mg PO DAILY - Plan Plan:: The patient is a 61-year-old gentleman who is a resident of psychiatric facility at [facility]. Clearly because of the skilled needs the patient has been admitted as an inpatient. He has been admitted through the emergency department with acute respiratory failure due to pneumonia. He has been tested negative for COVID-19 infection. The patient had been started on Levaquin. The patient will also be kept on Levaquin 500 mg IV daily starting tomorrow. The patient will be on oxygen to help keep his saturations around 90 to 92%. He is also diabetic and I have ordered a diabetic diet for him. He will have insulin sliding scale. The patient's blood sugar will be checked 3 times a day and at bedtime. He is also anticoagulated with the use of Lovenox 40 mg subcutaneous daily for the DVT prophylaxis. PT OT has been ordered for the patient. Once the patient's oxygen demands have improved he will likely be appropriate for return to psychiatric facility. 07/10/2021 The patient is a 61-year-old gentleman who was admitted secondary to pneumonia. Because the patient is a resident at a halfway the patient was placed on Levaquin the patient has been tolerating this antibiotic well. The patient's oxygen will be titrated to keep his saturations around 92%. He is on a diabetic diet and this will continue. The patient is also on insulin sliding scale. He is also anticoagulated with the use of Lovenox. The patient should be appropriate for discharge back to psychiatric facility once his oxygen demands have improved. He is also anemic and repeat laboratory studies have been ordered and if the patient has his hemoglobin drop below 7.0 g/dL will consider transfusion.
[2021-07-10] MEDS: Furosemide 20 MG Tab PO SCH (09:16)
[2021-07-10] MEDS: OLANZapine 5 MG Tab PO SCH (09:16)
[2021-07-10] MEDS: Losartan 100 MG Tab PO SCH (09:16)
[2021-07-10] MEDS: Tamsulosin 0.4 MG Cap.ER PO SCH (09:16)
[2021-07-10] MEDS: LORazepam 0.5 MG Tab PO SCH ×4 (09:16→20:22)
[2021-07-10] MEDS: risperiDONE 1 MG Tab PO SCH ×2 (09:16→20:20)
[2021-07-10] MEDS: Mineral Oil/White Petrolatum Crm 113 GM Jar TOP SCH ×2 (09:17→20:32)
[2021-07-10] MEDS: Enoxaparin 40 MG/0.4 ML Syringe SUBCUT SCH (09:17)
[2021-07-10] MEDS: Insulin Regular, Human 100 Units/ML 3 ML Vial SUBCUT SCH ×3 (09:18→19:17)
[2021-07-10] MEDS: fluvoxaMINE 50 MG Tab PO SCH ×2 (09:23→20:21)
[2021-07-10] MEDS: Mirtazapine 15 MG Tab PO SCH (20:18)
[2021-07-10] MEDS: Melatonin 3 MG Tab PO SCH (20:20)
[2021-07-10] MEDS: Magnesium Hydroxide 400 MG/5 ML Susp 30 ML Cup PO SCH ×2 (20:27→20:59)
[2021-07-11] MEDS: Levofloxacin/Dextrose 5%-Water 500 MG in Premix Bag 1 BAG IV SCH (02:46)
--- NOTE | 2021-07-11 09:38 | PCM.PN ---
- General Info Date of Service: 07/11/21 Admission Dx/Problem (Free Text): Admission Diagnosis/Problem Admission Diagnosis/Problem Pneumonia Subjective Update: The patient is a 61-year-old gentleman who had [facility] department due to worsening cough and low oxygen levels. The the patient has a significant psychiatric history. The patient says that he is doing better with head nods. The patient is eating well. The patient replies primarily with shaking and nodding of head although he can speak slowly. Functional Status: Reports: Pain Controlled, Tolerating Diet. Denies: New Symptoms - Review of Systems General: Reports: No Symptoms HEENT: Reports: No Symptoms Pulmonary: Reports: No Symptoms Cardiovascular: Reports: No Symptoms Gastrointestinal: Reports: No Symptoms Genitourinary: Reports: No Symptoms Musculoskeletal: Reports: No Symptoms Skin: Reports: No Symptoms Neurological: Reports: No Symptoms Psychiatric: Reports: No Symptoms - Patient Data Vitals - Most Recent: Last Vital Signs Temp 36.4 C 07/11/21 07:41 Pulse 58 L 07/11/21 07:41 Resp 19 07/11/21 07:41 BP 124/66 07/11/21 07:41 Pulse Ox 95 07/11/21 07:41 Weight - Most Recent: 81.556 kg I&O - Last 24 Hours: Intake & Output 07/10/21 07/11/21 07/11/21 22:59 06:59 14:59 Intake Total 1999 300 Balance 1999 300 Lab Results Last 24 Hours: Laboratory Results - last 24 hr 07/10/21 07/10/21 07/11/21 Range/Units 11:54 16:56 05:45 WBC 5.18 (4.23-9.07) K/mm3 RBC 3.29 L (4.63-6.08) M/mm3 Hgb 9.7 L (13.7-17.5) gm/dl Hct 32.0 L (40.1-51.0) % MCV 97.3 H (79.0-92.2) fl MCH 29.5 (25.7-32.2) pg MCHC 30.3 L (32.2-35.5) g/dl RDW Std Deviation 49.0 H (35.1-43.9) fL Plt Count 166 (163-337) K/mm3 MPV 9.7 (9.4-12.3) fl Neut % (Auto) 63.8 (34.0-67.9) % Lymph % (Auto) 23.4 (21.8-53.1) % Collin % (Auto) 9.7 (5.3-12.2) % Eos % (Auto) 2.5 (0.8-7.0) Baso % (Auto) 0.4 (0.1-1.2) % Neut # (Auto) 3.31 (1.78-5.38) K/mm3 Lymph # (Auto) 1.21 L (1.32-3.57) K/mm3 Collin # (Auto) 0.50 (0.30-0.82) K/mm3 Eos # (Auto) 0.13 (0.04-0.54) K/mm3 Baso # (Auto) 0.02 (0.01-0.08) K/mm3 Sodium (136-145) mEq/L Potassium (3.5-5.1) mEq/L Chloride (98-107) mEq/L Carbon Dioxide (21-32) mEq/L Anion Gap (5-15) BUN (7-18) mg/dL Creatinine (0.7-1.3) mg/dL Est Cr Clr Drug Dosing mL/min Estimated GFR (MDRD) (>60) mL/min BUN/Creatinine Ratio (14-18) Glucose (70-99) mg/dL POC Glucose 126 H 165 H (70-99) mg/dL Calcium (8.5-10.1) mg/dL Total Bilirubin (0.2-1.0) mg/dL AST (15-37) U/L ALT (16-63) U/L Alkaline Phosphatase (46-116) U/L C-Reactive Protein (<1.0) mg/dL Total Protein (6.4-8.2) g/dl Albumin (3.4-5.0) g/dl Globulin gm/dL Albumin/Globulin Ratio (1-2) 07/11/21 07/11/21 07/11/21 Range/Units 05:45 05:45 06:21 WBC (4.23-9.07) K/mm3 RBC (4.63-6.08) M/mm3 Hgb (13.7-17.5) gm/dl Hct (40.1-51.0) % MCV (79.0-92.2) fl MCH (25.7-32.2) pg MCHC (32.2-35.5) g/dl RDW Std Deviation (35.1-43.9) fL Plt Count (163-337) K/mm3 MPV (9.4-12.3) fl Neut % (Auto) (34.0-67.9) % Lymph % (Auto) (21.8-53.1) % Collin % (Auto) (5.3-12.2) % Eos % (Auto) (0.8-7.0) Baso % (Auto) (0.1-1.2) % Neut # (Auto) (1.78-5.38) K/mm3 Lymph # (Auto) (1.32-3.57) K/mm3 Collin # (Auto) (0.30-0.82) K/mm3 Eos # (Auto) (0.04-0.54) K/mm3 Baso # (Auto) (0.01-0.08) K/mm3 Sodium 144 (136-145) mEq/L Potassium 3.8 (3.5-5.1) mEq/L Chloride 107 (98-107) mEq/L Carbon Dioxide 29 (21-32) mEq/L Anion Gap 11.8 (5-15) BUN 15 (7-18) mg/dL Creatinine 0.6 L (0.7-1.3) mg/dL Est Cr Clr Drug Dosing 133.50 mL/min Estimated GFR (MDRD) > 60 (>60) mL/min BUN/Creatinine Ratio 25.0 H (14-18) Glucose 117 H (70-99) mg/dL POC Glucose 123 H (70-99) mg/dL Calcium 8.3 L (8.5-10.1) mg/dL Total Bilirubin 0.3 (0.2-1.0) mg/dL AST 10 L (15-37) U/L ALT 18 (16-63) U/L Alkaline Phosphatase 55 (46-116) U/L C-Reactive Protein 11.7 H* (<1.0) mg/dL Total Protein 5.8 L (6.4-8.2) g/dl Albumin 2.8 L (3.4-5.0) g/dl Globulin 3.0 gm/dL Albumin/Globulin Ratio 0.9 L (1-2) Akash Results Last 24 Hours: Microbiology 07/09/21 01:07 Blood Culture - Preliminary Blood - Venous - Lab Draw 07/09/21 00:56 Blood Culture - Preliminary Blood - Venous Med Orders - Current: Current Medications Albuterol/Ipratropium (Albuterol/Ipratropium 3.0-0.5 Mg/3 Ml Neb Soln) 3 ml NEB Q4H PRN PRN Reason: Shortness Of Breath/wheezing Enoxaparin Sodium (Enoxaparin 40 Mg/0.4 Ml Syringe) 40 mg SUBCUT DAILY [facility] Last Admin: 07/10/21 09:17 Dose: 40 mg Documented by: Fluvoxamine Maleate (Fluvoxamine 50 Mg Tab) 150 mg PO BID [facility] Last Admin: 07/10/21 20:21 Dose: 150 mg Documented by: Furosemide (Furosemide 20 Mg Tab) 20 mg PO DAILY [facility] Last Admin: 07/10/21 09:16 Dose: 20 mg Documented by: Levofloxacin/Dextrose 500 mg/ (Premix) 100 mls @ 100 mls/hr IV Q24H [facility] Last Admin: 07/11/21 02:46 Dose: 100 mls/hr Documented by: Insulin Human Regular (Insulin Regular, Human 100 Units/Ml 3 Ml Vial) 0 unit SUBCUT TIDPC [facility]; Protocol Last Admin: 07/10/21 19:17 Dose: 2 unit Documented by: Lorazepam (Lorazepam 0.5 Mg Tab) 0.5 mg PO QID [facility] Last Admin: 07/10/21 20:22 Dose: 0.5 mg Documented by: Losartan Potassium (Losartan 100 Mg Tab) 100 mg PO DAILY [facility] Last Admin: 07/10/21 09:16 Dose: 100 mg Documented by: Magnesium Hydroxide (Magnesium Hydroxide 400 Mg/5 Ml Susp 30 Ml Cup) 30 ml PO BEDTIME [facility] Last Admin: 07/10/21 20:59 Dose: Not Given Documented by: Melatonin (Melatonin 3 Mg Tab) 9 mg PO BEDTIME [facility] Last Admin: 07/10/21 20:20 Dose: 9 mg Documented by: Mineral Oil/White Petrolatum (Mineral Oil/White Petrolatum Crm 113 Gm Jar) 0 gm TOP BID [facility] Last Admin: 07/10/21 20:32 Dose: 1 applic Documented by: Mirtazapine (Mirtazapine 15 Mg Tab) 7.5 mg PO BEDTIME [facility] Last Admin: 07/10/21 20:18 Dose: 7.5 mg Documented by: Olanzapine (Olanzapine 5 Mg Tab) 10 mg PO DAILY [facility] Last Admin: 07/10/21 09:16 Dose: 10 mg Documented by: Ondansetron HCl (Ondansetron 4 Mg Tab.Dis) 4 mg PO Q4H PRN PRN Reason: nausea, able to take PO Oxycodone HCl (Oxycodone 5 Mg Tab) 5 mg PO Q4H PRN PRN Reason: Pain (moderate 4-6) Polyethylene Glycol (Polyethylene Glycol 3350 Powder 17 Gm Packet) 17 gm PO DAILY PRN PRN Reason: Constipation Risperidone (Risperidone 1 Mg Tab) 3 mg PO BID [facility] Last Admin: 07/10/21 20:20 Dose: 3 mg Documented by: Tamsulosin HCl (Tamsulosin 0.4 Mg Cap.Er) 0.4 mg PO DAILY [facility] Last Admin: 07/10/21 09:16 Dose: 0.4 mg Documented by: Discontinued Medications Albuterol/Ipratropium (Albuterol/Ipratropium 3.0-0.5 Mg/3 Ml Neb Soln) 3 ml INH QID PRN PRN Reason: Cough Lactated Ringer's (Ringers, Lactated) 1,000 mls @ 999 mls/hr IV .BOLUS ONE Stop: 07/09/21 02:59 Last Admin: 07/09/21 02:05 Dose: 999 mls/hr Documented by: Lactated Ringer's (Ringers, Lactated) 1,000 mls @ 150 [facility] Admin: 07/10/21 16:28 Dose: 150 mls/hr Documented by: Sodium Chloride (Normal Saline) 100 mls @ 70 mls/min IV ASDIRECTED [facility] Last Admin: 07/09/21 02:41 Dose: 70 mls/min Documented by: Levofloxacin/Dextrose 750 mg/ (Premix) 150 mls @ 100 mls/hr IV ONETIME ONE Stop: 07/09/21 04:08 Last Admin: 07/09/21 03:02 Dose: 100 mls/hr Documented by: Sodium Chloride (Normal Saline) 100 mls @ 70 mls/min IV ASDIRECTED [facility] Last Admin: 07/09/21 04:20 Dose: 70 mls/min Documented by: Lactated Ringer's (Ringers, Lactated) 1,000 mls @ 999 mls/hr IV .BOLUS ONE Stop: 07/09/21 06:35 Last Admin: 07/09/21 05:41 Dose: 999 mls/hr Documented by: Levofloxacin/Dextrose 500 mg/ (Premix) 100 mls @ 100 mls/hr IV Q24H [facility] Last Admin: 07/09/21 17:11 Dose: Not Given Documented by: Iopamidol (Iopamidol 755 Mg/Ml 100 Ml Bottle) 100 ml IVPUSH ONETIME ONE Stop: 07/09/21 02:05 Last Admin: 07/09/21 02:41 Dose: 100 ml Documented by: Iopamidol (Iopamidol 755 Mg/Ml 100 Ml Bottle) 100 ml IVPUSH ONETIME ONE Stop: 07/09/21 03:42 Last Admin: 07/09/21 04:20 Dose: 100 ml Documented by: Lorazepam (Lorazepam 0.5 Mg Tab) 0.5 mg PO ONETIME ONE Stop: 07/09/21 03:30 Last Admin: 07/09/21 03:36 Dose: 0.5 mg Documented by: Lorazepam (Lorazepam 0.5 Mg Tab) 0.5 mg PO ONETIME ONE Stop: 07/09/21 05:38 Last Admin: 07/09/21 05:41 Dose: 0.5 mg Documented by: Morphine Sulfate (Morphine 2 Mg/Ml Syringe) 2 mg IVPUSH Q2H PRN PRN Reason: Pain (severe 7-10) Stop: 07/10/21 12:28 Non-Formulary Medication (Menthol/Selenium Sulfide [Selsun Blue 1% Shampoo]) 118 ml .XX MOTH CHRIS Sodium Chloride (Sodium Chloride 0.9% 10 Ml Sdv) 10 ml FLUSH ONETIME ONE Stop: 07/09/21 02:05 Last Admin: 07/09/21 02:41 Dose: 10 ml Documented by: Sodium Chloride (Sodium Chloride 0.9% 10 Ml Sdv) 10 ml FLUSH ONETIME ONE Stop: 07/09/21 03:42 Last Admin: 07/09/21 04:20 Dose: 10 ml Documented by: - Exam Quality Assessment: DVT Prophylaxis. No: Supplemental Oxygen General: Alert, Oriented, Cooperative, No Acute Distress HEENT: Pupils Equal, Pupils Reactive, EOMI, Mucous Membr. Moist/[place] Neck: Supple, Trachea Midline Lungs: Clear to Auscultation, Normal Respiratory Effort Cardiovascular: Regular Rate, Regular Rhythm GI/Abdominal Exam: Normal Bowel Sounds, Soft, Non-Tender, No Distention (Male) Exam: Deferred Back Exam: Normal Inspection (Slow to move), Full Range of Motion (Laying flat.) Extremities: Normal Inspection, No Pedal Edema Skin: Warm, Dry, Intact Neurological: No New Focal Deficit Psy/Mental Status: Alert, Normal Affect, Normal Mood - Patient Data Lab Results Last 24 hrs: Laboratory Results - last 24 hr 07/10/21 07/10/21 07/11/21 Range/Units 11:54 16:56 05:45 WBC 5.18 (4.23-9.07) K/mm3 RBC 3.29 L (4.63-6.08) M/mm3 Hgb 9.7 L (13.7-17.5) gm/dl Hct 32.0 L (40.1-51.0) % MCV 97.3 H (79.0-92.2) fl MCH 29.5 (25.7-32.2) pg MCHC 30.3 L (32.2-35.5) g/dl RDW Std Deviation 49.0 H (35.1-43.9) fL Plt Count 166 (163-337) K/mm3 MPV 9.7 (9.4-12.3) fl Neut % (Auto) 63.8 (34.0-67.9) % Lymph % (Auto) 23.4 (21.8-53.1) % Collin % (Auto) 9.7 (5.3-12.2) % Eos % (Auto) 2.5 (0.8-7.0) Baso % (Auto) 0.4 (0.1-1.2) % Neut # (Auto) 3.31 (1.78-5.38) K/mm3 Lymph # (Auto) 1.21 L (1.32-3.57) K/mm3 Collin # (Auto) 0.50 (0.30-0.82) K/mm3 Eos # (Auto) 0.13 (0.04-0.54) K/mm3 Baso # (Auto) 0.02 (0.01-0.08) K/mm3 Sodium (136-145) mEq/L Potassium (3.5-5.1) mEq/L Chloride (98-107) mEq/L Carbon Dioxide (21-32) mEq/L Anion Gap (5-15) BUN (7-18) mg/dL Creatinine (0.7-1.3) mg/dL Est Cr Clr Drug Dosing mL/min Estimated GFR (MDRD) (>60) mL/min BUN/Creatinine Ratio (14-18) Glucose (70-99) mg/dL POC Glucose 126 H 165 H (70-99) mg/dL Calcium (8.5-10.1) mg/dL Total Bilirubin (0.2-1.0) mg/dL AST (15-37) U/L ALT (16-63) U/L Alkaline Phosphatase (46-116) U/L C-Reactive Protein (<1.0) mg/dL Total Protein (6.4-8.2) g/dl Albumin (3.4-5.0) g/dl Globulin gm/dL Albumin/Globulin Ratio (1-2) 07/11/21 07/11/21 07/11/21 Range/Units 05:45 05:45 06:21 WBC (4.23-9.07) K/mm3 RBC (4.63-6.08) M/mm3 Hgb (13.7-17.5) gm/dl Hct (40.1-51.0) % MCV (79.0-92.2) fl MCH (25.7-32.2) pg MCHC (32.2-35.5) g/dl RDW Std Deviation (35.1-43.9) fL Plt Count (163-337) K/mm3 MPV (9.4-12.3) fl Neut % (Auto) (34.0-67.9) % Lymph % (Auto) (21.8-53.1) % Collin % (Auto) (5.3-12.2) % Eos % (Auto) (0.8-7.0) Baso % (Auto) (0.1-1.2) % Neut # (Auto) (1.78-5.38) K/mm3 Lymph # (Auto) (1.32-3.57) K/mm3 Collin # (Auto) (0.30-0.82) K/mm3 Eos # (Auto) (0.04-0.54) K/mm3 Baso # (Auto) (0.01-0.08) K/mm3 Sodium 144 (136-145) mEq/L Potassium 3.8 (3.5-5.1) mEq/L Chloride 107 (98-107) mEq/L Carbon Dioxide 29 (21-32) mEq/L Anion Gap 11.8 (5-15) BUN 15 (7-18) mg/dL Creatinine 0.6 L (0.7-1.3) mg/dL Est Cr Clr Drug Dosing 133.50 mL/min Estimated GFR (MDRD) > 60 (>60) mL/min BUN/Creatinine Ratio 25.0 H (14-18) Glucose 117 H (70-99) mg/dL POC Glucose 123 H (70-99) mg/dL Calcium 8.3 L (8.5-10.1) mg/dL Total Bilirubin 0.3 (0.2-1.0) mg/dL AST 10 L (15-37) U/L ALT 18 (16-63) U/L Alkaline Phosphatase 55 (46-116) U/L C-Reactive Protein 11.7 H* (<1.0) mg/dL Total Protein 5.8 L (6.4-8.2) g/dl Albumin 2.8 L (3.4-5.0) g/dl Globulin 3.0 gm/dL Albumin/Globulin Ratio 0.9 L (1-2) Result Diagrams: 07/11/21 05:45 07/11/21 05:45 Akash Results Last 24 hrs: Microbiology 07/09/21 01:07 Blood Culture - Preliminary Blood - Venous - Lab Draw 07/09/21 00:56 Blood Culture - Preliminary Blood - Venous Sepsis Event Note - Evaluation Sepsis Screening Result: No Definite Risk - Focused Exam Vital Signs: Vital Signs Temp Pulse Resp BP Pulse Ox 07/11/21 07:41 36.4 C 58 L 19 124/66 95 07/11/21 02:58 36.4 C 59 L 16 111/66 92 L 07/10/21 23:32 36.6 C 58 L 16 108/57 L 95 - Problem List & Annotations (1) Acute respiratory failure SNOMED Code(s): 11951871 Code(s): J96.00 - ACUTE RESPIRATORY FAILURE, UNSP W HYPOXIA OR HYPERCAPNIA Status: Resolved Priority: High Current Visit: Yes Qualifiers: Respiratory failure complication: hypoxia Qualified Code(s): J96.01 - Acute respiratory failure with hypoxia (2) Pneumonia SNOMED Code(s): 391730256 Code(s): J18.9 - PNEUMONIA, UNSPECIFIED ORGANISM Status: Acute Priority: High Current Visit: Yes Qualifiers: Pneumonia type: due to unspecified organism Laterality: unspecified laterality Lung location: lower lobe of lung Qualified Code(s): J18.9 - Pneumonia, unspecified organism (3) Delayed emotional development SNOMED Code(s): 077799301 Code(s): F88 - OTHER DISORDERS OF PSYCHOLOGICAL DEVELOPMENT Status: Chronic Priority: Medium Current Visit: Yes (4) Diabetes mellitus type 2 in obese SNOMED Code(s): 12273650 Code(s): E11.69 - TYPE 2 DIABETES MELLITUS WITH OTHER SPECIFIED COMPLICATION; E66.9 - OBESITY, UNSPECIFIED Status: Chronic Priority: High Current Visit: Yes (5) Hypertension SNOMED Code(s): 40712822 Code(s): I10 - ESSENTIAL (PRIMARY) HYPERTENSION Status: Chronic Priority: High Current Visit: Yes Qualifiers: Hypertension type: primary hypertension Qualified Code(s): I10 - Essential (primary) hypertension (6) Total self-care deficit SNOMED Code(s): 69107840 Code(s): R41.89 - OTH SYMPTOMS AND SIGNS W COGNITIVE FUNCTIONS AND AWARENESS Status: Chronic Priority: High Current Visit: Yes - Problem List Review Problem List Initiated/Reviewed/Updated: Yes - My Orders Last 24 Hours: My Active Orders 07/10/21 09:00 Enoxaparin [Lovenox] 40 mg SUBCUT DAILY Furosemide [Lasix] 20 mg PO DAILY Losartan [Cozaar] 100 mg PO DAILY OLANZapine [ZyPREXA] 10 mg PO DAILY Tamsulosin [Flomax] 0.4 mg PO DAILY 07/10/21 10:50 PT Evaluation and Treatment [CONS] Routine 07/10/21 10:51 OT Evaluation and Treatment [CONS] Routine 07/10/21 Dinner Consistent Carbohydrate Diet [DIET] - Plan Plan:: The patient is a 61-year-old gentleman who is a [facility] Clearly because of the skilled needs the patient has been admitted as an inpatient. He has been admitted through the emergency department with acute respiratory failure due to pneumonia. He has been tested negative for COVID-19 infection. The patient had been started on Levaquin. The patient will also be kept on Levaquin 500 mg IV daily starting tomorrow. The patient will be on oxygen to help keep his saturations around 90 to 92%. He is also diabetic and I have ordered a diabetic diet for him. He will have insulin sliding scale. The patient's blood sugar will be checked 3 times a day and at bedtime. He is also anticoagulated with the use of Lovenox 40 mg subcutaneous daily for the DVT prophylaxis. PT OT has been ordered for the patient. Once the patient's oxygen demands have improved he will likely be appropriate for return to psychiatric facility. 07/10/2021 The patient is a 61-year-old gentleman who was admitted secondary to pneumonia. Because the patient is a resident at a assisted the patient was placed on Levaquin the patient has been tolerating this antibiotic well. The patient's oxygen will be titrated to keep his saturations around 92%. He is on a diabetic diet and this will continue. The patient is also on insulin sliding scale. He is also anticoagulated with the use of Lovenox. The patient should be appropriate for discharge back to psychiatric facility once his oxygen demands have improved. He is also anemic and repeat laboratory studies have been ordered and if the patient has his hemoglobin drop below 7.0 g/dL will consider transfusion. 07/11/2021 The patient is a 61-year-old gentleman who had been admitted secondary to pneumonia from a skilled facility. The patient has been doing well. He is heavily medicated and does have a psychiatric history. The patient's oxygen will can be kept around 92%. The patient is also anticoagulated with the use of Lovenox. Should be appropriate for discharge back to nursing facility likely tomorrow. Patient is also anemic and we will continue to monitor this with repeat laboratory studies and if the patient's hemoglobin drops below 7.0 g/dL will consider transfusion. The patient is also to continue with his current diet as tolerated. The patient's hemoglobin has remained stable throughout hospitalization.
[2021-07-11] MEDS: Insulin Regular, Human 100 Units/ML 3 ML Vial SUBCUT SCH ×3 (09:47→19:38)
[2021-07-11] MEDS: Enoxaparin 40 MG/0.4 ML Syringe SUBCUT SCH (09:48)
[2021-07-11] MEDS: risperiDONE 1 MG Tab PO SCH ×2 (09:49→21:02)
[2021-07-11] MEDS: fluvoxaMINE 50 MG Tab PO SCH ×2 (09:49→21:01)
[2021-07-11] MEDS: OLANZapine 5 MG Tab PO SCH (09:49)
[2021-07-11] MEDS: Tamsulosin 0.4 MG Cap.ER PO SCH (09:50)
[2021-07-11] MEDS: Losartan 100 MG Tab PO SCH (09:51)
[2021-07-11] MEDS: LORazepam 0.5 MG Tab PO SCH ×4 (09:51→21:01)
[2021-07-11] MEDS: Mineral Oil/White Petrolatum Crm 113 GM Jar TOP SCH ×2 (09:51→21:05)
[2021-07-11] MEDS: Furosemide 20 MG Tab PO SCH (09:51)
[2021-07-11] MEDS: Melatonin 3 MG Tab PO SCH (21:03)
[2021-07-11] MEDS: Mirtazapine 15 MG Tab PO SCH (21:04)
[2021-07-11] MEDS: Magnesium Hydroxide 400 MG/5 ML Susp 30 ML Cup PO SCH (21:14)
[2021-07-12] MEDS: Levofloxacin/Dextrose 5%-Water 500 MG in Premix Bag 1 BAG IV SCH (03:05)
[2021-07-12] MEDS: Enoxaparin 40 MG/0.4 ML Syringe SUBCUT SCH (09:34)
[2021-07-12] MEDS: fluvoxaMINE 50 MG Tab PO SCH (09:34)
[2021-07-12] MEDS: LORazepam 0.5 MG Tab PO SCH ×2 (09:34→12:50)
[2021-07-12] MEDS: OLANZapine 5 MG Tab PO SCH (09:34)
[2021-07-12] MEDS: risperiDONE 1 MG Tab PO SCH (09:35)
[2021-07-12] MEDS: Insulin Regular, Human 100 Units/ML 3 ML Vial SUBCUT SCH ×2 (09:36→12:49)
[2021-07-12] MEDS: Tamsulosin 0.4 MG Cap.ER PO SCH (09:36)
[2021-07-12] MEDS: Furosemide 20 MG Tab PO SCH (09:36)
[2021-07-12] MEDS: Losartan 100 MG Tab PO SCH (09:36)
[2021-07-12] MEDS: Mineral Oil/White Petrolatum Crm 113 GM Jar TOP SCH (09:36)
[2021-07-12] MEDS ORDERED: Bisacodyl 10 MG Supp RECTAL ONE (11:09)
--- NOTE | 2021-07-12 12:19 | PCM.DCSUM1 ---
Discharge Summary - Hospital Course HPI Initial Comments: The patient is a 61-year-old gentleman from a fdc facility that was brought into the emergency department after he was found to have worsening cough and low oxygen levels. The patient has a significant psychiatric history and has been in a psychiatric hill at [facility]. The patient is heavily medicated and somewhat confused. He is a poor historian. Most of the information is been taken from his previous charting as well as prior records. It was reported that the patient's oxygen levels were low around 80%. Patient himself says that he has been having trouble breathing and feels short of breath. The patient's COVID-19 testing was negative. Assessment/Plan Comment:: The patient is a 61-year-old gentleman who is a resident of psychiatric facility at [facility]. Clearly because of the skilled needs the patient has been admitted as an inpatient. He has been admitted through the emergency department with acute respiratory failure due to pneumonia. He has been tested negative for COVID-19 infection. The patient had been started on Levaquin. The patient will also be kept on Levaquin 500 mg IV daily starting tomorrow. The patient will be on oxygen to help keep his saturations around 90 to 92%. He is also diabetic and I have ordered a diabetic diet for him. He will have insulin sliding scale. The patient's blood sugar will be checked 3 times a day and at bedtime. He is also anticoagulated with the use of Lovenox 40 mg subcutaneous daily for the DVT prophylaxis. PT OT has been ordered for the patient. Once the patient's oxygen demands have improved he will likely be appropriate for return to psychiatric facility. - Mortality Measure Prognosis:: Poor Addendum: The patient had [address] exams of his chest with contrast and therefore to help prevent contrast-induced nephropathy the patient's Metformin has been held and he will be kept on IV fluids. Diagnosis: Stroke: No - Discharge Data Discharge Date: 07/12/21 Discharge Disposition: DC/Tfer to Assisted Care 63 Condition: Good - Referral to Home Health Primary Care Physician: Hugh Pruett MD - Patient Summary/Data Consults: Consultations 07/09/21 16:20 Consult to Speech Language Pathology [[employer] Evaluation and Treatment] [CONS] Routine 07/10/21 10:50 PT Evaluation and Treatment [CONS] Routine 07/10/21 10:51 OT Evaluation and Treatment [CONS] Routine Hospital Course: 07/10/2021 The patient is a 61-year-old gentleman who was admitted secondary to pneumonia. Because the patient is a resident at a half-way the patient was placed on Levaquin the patient has been tolerating this antibiotic well. The patient's oxygen will be titrated to keep his saturations around 92%. He is on a diabetic diet and this will continue. The patient is also on insulin sliding scale. He is also anticoagulated with the use of Lovenox. The patient should be appropriate for discharge back to psychiatric facility once his oxygen demands have improved. He is also anemic and repeat laboratory studies have been ordered and if the patient has his hemoglobin drop below 7.0 g/dL will consider transfusion. 07/11/2021 The patient is a 61-year-old gentleman who had been admitted secondary to pneumonia from a skilled facility. The patient has been doing well. He is heavily medicated and does have a psychiatric history. The patient's oxygen will can be kept around 92%. The patient is also anticoagulated with the use of Lovenox. Should be appropriate for discharge back to nursing facility likely tomorrow. Patient is also anemic and we will continue to monitor this with repeat laboratory studies and if the patient's hemoglobin drops below 7.0 g/dL will consider transfusion. The patient is also to continue with his current diet as tolerated. The patient's hemoglobin has remained stable throughout hospitalization. 1day of discharge 61-year-old male with Alzheimer's disease, delayed emotional development, delusions, wandering, hoarding disorder, mild intellectual disabilities and admitted for pneumonia. Patient has been on Levaquin with good results. White count is normal today at 4.6 and CRP is down to 5.5. He is on room air and ready for discharge back to [facility]. - Patient Instructions Diet: Usual Diet as Tolerated Driving: Do Not Drive Showering/Bathing: May Shower Other/Special Instructions: Follow up with PCP next week. - Discharge Plan *PRESCRIPTION DRUG MONITORING PROGRAM REVIEWED*: No *COPY OF PRESCRIPTION DRUG MONITORING REPORT IN PATIENT SKYE: No Prescriptions/Med Rec: levoFLOXacin [Levaquin] 500 mg PO Q24H #2 tablet Home Medications: Home Meds Losartan [Cozaar] 100 mg PO DAILY 01/24/19 [History] atorvaSTATin [Lipitor] 20 mg PO BEDTIME 01/26/19 [History] Calcium Carbonate [Tums] 500 mg PO BID 05/18/20 [History] Cholecalciferol (Vitamin D3) [Vitamin D3] 1,000 unit PO DAILY 05/18/20 [History] Furosemide [Lasix] 20 mg PO DAILY 05/18/20 [History] LORazepam [Ativan] 0.5 mg PO QID 05/18/20 [History] Melatonin 9 mg PO BEDTIME 05/18/20 [History] Mirtazapine [Remeron] 7.5 mg PO BEDTIME 05/18/20 [History] Multivit-Min/FA/Lycopen/Lutein [Certavite Senior Tablet] 1 tab PO DAILY 05/18/20 [History] bisacodyL [Dulcolax] 5 mg PO BID PRN 05/18/20 [History] polyethylene glycoL 3350 [MiraLAX] 17 gm PO DAILY PRN 05/18/20 [History] risperiDONE [Risperdal] 3 mg PO BID 05/18/20 [History] Ipratropium/Albuterol Sulfate [Iprat-Albut 0.5-3(2.5) MG/3 ML] 1 inhalation INH QID PRN 07/18/20 [History] Magnesium Hydroxide [Milk of Magnesia] 30 ml PO BEDTIME 08/16/20 [History] metFORMIN [Glucophage XR] 1,000 mg PO BIDMEALS 08/16/20 [History] [place]/Min Oil/Maria Esther/Wool Alcoh [Eucerin Creme] 1 dose TOP BID 07/09/21 [History] OLANZapine [ZyPREXA] 10 mg PO DAILY 07/09/21 [History] Tamsulosin [Flomax] 0.4 mg PO DAILY 07/09/21 [History] fluvoxaMINE [Luvox] 150 mg PO BID 07/09/21 [History] levoFLOXacin [Levaquin] 500 mg PO Q24H #2 tablet 07/12/21 [Rx] Oxygen Therapy Mode: Room Air Patient Handouts: Sepsis, Diagnosis, Adult, Community-Acquired Pneumonia, Adult Forms: ED Department Discharge Referrals: RatHugh hsu MD [Primary Care Provider] - (Nurse will call residential to set up appt. anna Borjas at [facility].) - Discharge Summary/Plan Comment DC Time >30 min.: Yes Total # of Minutes for Discharge Time: 40 Total time spent includes seeing the patient, doing discharge paperwork, and arranging care. - General Info Date of Service: 07/12/21 Admission Dx/Problem (Free Text: Admission Diagnosis/Problem Admission Diagnosis/Problem Pneumonia Subjective Update: Patient denied any pain. - Review of Systems General: Reports: Other (Patient is a poor historian only shaking his head when asked if he had pain.) - Patient Data Vitals - Most Recent: Last Vital Signs Temp 97.9 F 07/12/21 07:14 Pulse 65 07/12/21 07:14 Resp 19 07/12/21 07:14 BP 106/67 07/12/21 09:36 Pulse Ox 92 L 07/12/21 07:14 Weight - Most Recent: 178 lb 3.2 oz I&O - Last 24 hours: Intake & Output 07/11/21 07/12/21 07/12/21 22:59 06:59 14:59 Intake Total 960 500 210 Balance 960 500 210 Lab Results - Last 24 hrs: Laboratory Results - last 24 hr 07/11/21 07/12/21 07/12/21 Range/Units 16:44 06:43 07:20 WBC 4.62 (4.23-9.07) K/mm3 RBC 3.45 L (4.63-6.08) M/mm3 Hgb 10.3 L (13.7-17.5) gm/dl Hct 33.3 L (40.1-51.0) % MCV 96.5 H (79.0-92.2) fl MCH 29.9 (25.7-32.2) pg MCHC 30.9 L (32.2-35.5) g/dl RDW Std Deviation 48.4 H (35.1-43.9) fL Plt Count 185 (163-337) K/mm3 MPV 9.5 (9.4-12.3) fl Neut % (Auto) 63.5 (34.0-67.9) % Lymph % (Auto) 25.5 (21.8-53.1) % Brooke % (Auto) 8.2 (5.3-12.2) % Eos % (Auto) 2.4 (0.8-7.0) Baso % (Auto) 0.2 (0.1-1.2) % Neut # (Auto) 2.93 (1.78-5.38) K/mm3 Lymph # (Auto) 1.18 L (1.32-3.57) K/mm3 Brooke # (Auto) 0.38 (0.30-0.82) K/mm3 Eos # (Auto) 0.11 (0.04-0.54) K/mm3 Baso # (Auto) 0.01 (0.01-0.08) K/mm3 Sodium (136-145) mEq/L Potassium (3.5-5.1) mEq/L Chloride (98-107) mEq/L Carbon Dioxide (21-32) mEq/L Anion Gap (5-15) BUN (7-18) mg/dL Creatinine (0.7-1.3) mg/dL Est Cr Clr Drug Dosing mL/min Estimated GFR (MDRD) (>60) mL/min BUN/Creatinine Ratio (14-18) Glucose (70-99) mg/dL POC Glucose 116 H 116 H (70-99) mg/dL Calcium (8.5-10.1) mg/dL C-Reactive Protein (<1.0) mg/dL 07/12/21 07/12/21 Range/Units 07:20 11:06 WBC (4.23-9.07) K/mm3 RBC (4.63-6.08) M/mm3 Hgb (13.7-17.5) gm/dl Hct (40.1-51.0) % MCV (79.0-92.2) fl MCH (25.7-32.2) pg MCHC (32.2-35.5) g/dl RDW Std Deviation (35.1-43.9) fL Plt Count (163-337) K/mm3 MPV (9.4-12.3) fl Neut % (Auto) (34.0-67.9) % Lymph % (Auto) (21.8-53.1) % Brooke % (Auto) (5.3-12.2) % Eos % (Auto) (0.8-7.0) Baso % (Auto) (0.1-1.2) % Neut # (Auto) (1.78-5.38) K/mm3 Lymph # (Auto) (1.32-3.57) K/mm3 Brooke # (Auto) (0.30-0.82) K/mm3 Eos # (Auto) (0.04-0.54) K/mm3 Baso # (Auto) (0.01-0.08) K/mm3 Sodium 145 (136-145) mEq/L Potassium 3.8 (3.5-5.1) mEq/L Chloride 108 H (98-107) mEq/L Carbon Dioxide 31 (21-32) mEq/L Anion Gap 9.8 (5-15) BUN 21 H (7-18) mg/dL Creatinine 0.6 L (0.7-1.3) mg/dL Est Cr Clr Drug Dosing 133.50 mL/min Estimated GFR (MDRD) > 60 (>60) mL/min BUN/Creatinine Ratio 35.0 H (14-18) Glucose 132 H (70-99) mg/dL POC Glucose 153 H (70-99) mg/dL Calcium 8.5 (8.5-10.1) mg/dL C-Reactive Protein 5.5 H* (<1.0) mg/dL Med Orders - Current: Current Medications Albuterol/Ipratropium (Albuterol/Ipratropium 3.0-0.5 Mg/3 Ml Neb Soln) 3 ml NEB Q4H PRN PRN Reason: Shortness Of Breath/wheezing Enoxaparin Sodium (Enoxaparin 40 Mg/0.4 Ml Syringe) 40 mg SUBCUT DAILY [facility] Last Admin: 07/12/21 09:34 Dose: 40 mg Documented by: Fluvoxamine Maleate (Fluvoxamine 50 Mg Tab) 150 mg PO BID [facility] Last Admin: 07/12/21 09:34 Dose: 150 mg Documented by: Furosemide (Furosemide 20 Mg Tab) 20 mg PO DAILY [facility] Last Admin: 07/12/21 09:36 Dose: 20 mg Documented by: Insulin Human Regular (Insulin Regular, Human 100 Units/Ml 3 Ml Vial) 0 unit SUBCUT TIDPC [facility]; Protocol Last Admin: 07/12/21 09:36 Dose: Not Given Documented by: Levofloxacin (Levofloxacin 500 Mg Tab) 500 mg PO Q24H [facility] Lorazepam (Lorazepam 0.5 Mg Tab) 0.5 mg PO QID [facility] Last Admin: 07/12/21 09:34 Dose: 0.5 mg Documented by: Losartan Potassium (Losartan 100 Mg Tab) 100 mg PO DAILY [facility] Last Admin: 07/12/21 09:36 Dose: 100 mg Documented by: Magnesium Hydroxide (Magnesium Hydroxide 400 Mg/5 Ml Susp 30 Ml Cup) 30 ml PO BEDTIME [facility] Last Admin: 07/11/21 21:14 Dose: 30 ml Documented by: Melatonin (Melatonin 3 Mg Tab) 9 mg PO BEDTIME [facility] Last Admin: 07/11/21 21:03 Dose: 9 mg Documented by: Mineral Oil/White Petrolatum (Mineral Oil/White Petrolatum Crm 113 Gm Jar) 0 gm TOP BID [facility] Last Admin: 07/12/21 09:36 Dose: 1 applic Documented by: Mirtazapine (Mirtazapine 15 Mg Tab) 7.5 mg PO BEDTIME [facility] Last Admin: 07/11/21 21:04 Dose: 7.5 mg Documented by: Olanzapine (Olanzapine 5 Mg Tab) 10 mg PO DAILY [facility] Last Admin: 07/12/21 09:34 Dose: 10 mg Documented by: Ondansetron HCl (Ondansetron 4 Mg Tab.Dis) 4 mg PO Q4H PRN PRN Reason: nausea, able to take PO Oxycodone HCl (Oxycodone 5 Mg Tab) 5 mg PO Q4H PRN PRN Reason: Pain (moderate 4-6) Polyethylene Glycol (Polyethylene Glycol 3350 Powder 17 Gm Packet) 17 gm PO DAILY PRN PRN Reason: Constipation Risperidone (Risperidone 1 Mg Tab) 3 mg PO BID [facility] Last Admin: 07/12/21 09:35 Dose: 3 mg Documented by: Tamsulosin HCl (Tamsulosin 0.4 Mg Cap.Er) 0.4 mg PO DAILY [facility] Last Admin: 07/12/21 09:36 Dose: 0.4 mg Documented by: Discontinued Medications Albuterol/Ipratropium (Albuterol/Ipratropium 3.0-0.5 Mg/3 Ml Neb Soln) 3 ml INH QID PRN PRN Reason: Cough Bisacodyl (Bisacodyl 10 Mg Supp) 10 mg RECTAL ONETIME ONE Stop: 12/01/21 11:10 Last Admin: 07/12/21 11:20 Dose: 10 mg Documented by: Lactated Ringer's (Ringers, Lactated) 1,000 mls @ 999 mls/hr IV .BOLUS ONE Stop: 07/09/21 02:59 Last Admin: 07/09/21 02:05 Dose: 999 mls/hr Documented by: Lactated Ringer's (Ringers, Lactated) 1,000 mls @ 150 mls/hr IV ASDIRECTED [facility] Last Admin: 07/10/21 16:28 Dose: 150 mls/hr Documented by: Sodium Chloride (Normal Saline) 100 mls @ 70 mls/min IV ASDIRECTED [facility] Last Admin: 07/09/21 02:41 Dose: 70 mls/min Documented by: Levofloxacin/Dextrose 750 mg/ (Premix) 150 mls @ 100 mls/hr IV ONETIME ONE Stop: 07/09/21 04:08 Last Admin: 07/09/21 03:02 Dose: 100 mls/hr Documented by: Sodium Chloride (Normal Saline) 100 mls @ 70 mls/min IV ASDIRECTED [facility] Last Admin: 07/09/21 04:20 Dose: 70 mls/min Documented by: Lactated Ringer's (Ringers, Lactated) 1,000 mls @ 999 mls/hr IV .BOLUS ONE Stop: 07/09/21 06:35 Last Admin: 07/09/21 05:41 Dose: 999 mls/hr Documented by: Levofloxacin/Dextrose 500 mg/ (Premix) 100 mls @ 100 mls/hr IV Q24H [facility] Last Admin: 07/09/21 17:11 Dose: Not Given Documented by: Levofloxacin/Dextrose 500 mg/ (Premix) 100 mls @ 100 mls/hr IV Q24H [facility] Last Admin: 07/12/21 03:05 Dose: 100 mls/hr Documented by: Iopamidol (Iopamidol 755 Mg/Ml 100 Ml Bottle) 100 ml IVPUSH ONETIME ONE Stop: 07/09/21 02:05 Last Admin: 07/09/21 02:41 Dose: 100 ml Documented by: Iopamidol (Iopamidol 755 Mg/Ml 100 Ml Bottle) 100 ml IVPUSH ONETIME ONE Stop: 07/09/21 03:42 Last Admin: 07/09/21 04:20 Dose: 100 ml Documented by: Lorazepam (Lorazepam 0.5 Mg Tab) 0.5 mg PO ONETIME ONE Stop: 07/09/21 03:30 Last Admin: 07/09/21 03:36 Dose: 0.5 mg Documented by: Lorazepam (Lorazepam 0.5 Mg Tab) 0.5 mg PO ONETIME ONE Stop: 07/09/21 05:38 Last Admin: 07/09/21 05:41 Dose: 0.5 mg Documented by: Morphine Sulfate (Morphine 2 Mg/Ml Syringe) 2 mg IVPUSH Q2H PRN PRN Reason: Pain (severe 7-10) Stop: 07/10/21 12:28 Non-Formulary Medication (Menthol/Selenium Sulfide [Selsun Blue 1% Shampoo]) 118 ml .XX MOTH CHRIS Sodium Chloride (Sodium Chloride 0.9% 10 Ml Sdv) 10 ml FLUSH ONETIME ONE Stop: 07/09/21 02:05 Last Admin: 07/09/21 02:41 Dose: 10 ml Documented by: Sodium Chloride (Sodium Chloride 0.9% 10 Ml Sdv) 10 ml FLUSH ONETIME ONE Stop: 07/09/21 03:42 Last Admin: 07/09/21 04:20 Dose: 10 ml Documented by: - Exam Quality Assessment: Denies: Supplemental Oxygen General: Reports: Alert. Denies: Oriented Neck: Reports: Supple Lungs: Reports: Clear to Auscultation, Normal Respiratory Effort Cardiovascular: Reports: Regular Rate, Regular Rhythm GI/Abdominal Exam: Normal Bowel Sounds, Soft, Non-Tender, No Distention Extremities: Normal Inspection, Normal Range of Motion, Non-Tender, No Pedal Edema, Normal Capillary Refill
[2021-07-12 14:25] VITALS: BP 114/41; PULSE 76
[2021-07-13] MEDS ORDERED: Levofloxacin 500 MG Tab PO SCH (06:00)
== END 2021-07-12 15:20 | DRG 193 ==
LOC: JD.ED 00:22 → JD.MS 10:45
PROVIDERS: ADMIT Internal Medicine; ATTEND Internal Medicine
DX: A41.9 Sepsis, unspecified organism (principal); J18.1 Lobar pneumonia, unspecified organism; E86.0 Dehydration; E78.00 Pure hypercholesterolemia, unspecified; R63.2 Polyphagia; J18.9 Pneumonia, unspecified organism; J96.01 Acute respiratory failure with hypoxia; Z20.822 Contact with and (suspected) exposure to COVID-19; G30.9 Alzheimer's disease, unspecified; F02.80 Dementia in other diseases classified elsewhere, unspecified severity, without behavioral disturbance, psychotic disturbance, mood disturbance, and anxiety; Z88.0 Allergy status to penicillin; Z88.8 Allergy status to other drugs, medicaments and biological substances; Z79.84 Long term (current) use of oral hypoglycemic drugs; Z79.899 Other long term (current) drug therapy; N28.9 Disorder of kidney and ureter, unspecified; Z86.16 Personal history of COVID-19; F88 Other disorders of psychological development; I10 Essential (primary) hypertension; R41.89 Other symptoms and signs involving cognitive functions and awareness; E78.5 Hyperlipidemia, unspecified; F41.9 Anxiety disorder, unspecified; E11.9 Type 2 diabetes mellitus without complications; Z79.4 Long term (current) use of insulin; D64.9 Anemia, unspecified
CPT/HCPCS: 36415; 71045; 71275; 80048; 80053; 83605 ×4; 84484; 85025; 85379; 85610; 85730; 86738; 87040 ×2; 87641; 93005; A9270 ×2; J1956; J7120 ×3; Q9967 ×2; U0002; 82947; 83735; 86140; 92610-GN; 93010; 97110-GP; 97116-GP; 97162-GP; 97530-GP; 99285; J1650; J1815-GY

== ENCOUNTER 2021-09-06 12:23 | Emergency (ER) | payer MEDICARE, MEDICAID ==
[2021-09-06 12:44] VITALS: BP 146/80; PULSE 115
== END 2021-09-06 13:30 ==
LOC: JD.ED 12:23
DX: Z02.89 Encounter for other administrative examinations (principal); E78.00 Pure hypercholesterolemia, unspecified; I10 Essential (primary) hypertension; E11.9 Type 2 diabetes mellitus without complications; N40.0 Benign prostatic hyperplasia without lower urinary tract symptoms; Z88.0 Allergy status to penicillin; Z88.8 Allergy status to other drugs, medicaments and biological substances; Z88.5 Allergy status to narcotic agent; Z79.899 Other long term (current) drug therapy; Z79.84 Long term (current) use of oral hypoglycemic drugs
CPT/HCPCS: 71046; 71046-26; 74018; 74018-26; 99284-25

== ENCOUNTER 2021-09-06 15:19 | Day surgery (SDC) | payer MEDICARE, MEDICAID ==
[2021-09-06] MEDS ORDERED: Ondansetron 4 MG/2 ML SDV ONE ×2 (16:48→17:35)
[2021-09-06] MEDS ORDERED: Propofol 200 MG/20 ML SDV ONE (16:48)
[2021-09-06] MEDS ORDERED: Succinylcholine/Sod PF 100 MG/5 ML SYRINGE IV ONE (16:48)
[2021-09-06] MEDS ORDERED: Lidocaine 1% 4 ML ONE (16:48)
[2021-09-06] MEDS ORDERED: Midazolam 1 MG/ML 2 ML SDV ONE (16:48)
[2021-09-06] MEDS ORDERED: fentaNYL 100 MCG/2 ML SDV ONE (16:49)
[2021-09-06] MEDS ORDERED: Albuterol 0.083% 2.5 MG/3 ML Neb Soln NEB ONE (17:15)
[2021-09-06] MEDS ORDERED: fentaNYL 100 MCG/2 ML SDV IVPUSH PRN (18:00)
[2021-09-06] MEDS ORDERED: Ondansetron 4 MG/2 ML SDV IVPUSH PRN (18:00)
[2021-09-06] MEDS ORDERED: HYDROmorphone 0.5 MG/0.5 ML Syringe IVPUSH PRN (18:00)
[2021-09-06 18:02] VITALS: PULSE 90
[2021-09-06 19:42] VITALS: BP 119/55
== END 2021-09-06 19:23 | disposition home or self-care (01) ==
LOC: JD.ED 15:19 → JD.SDS 16:39
PROVIDERS: ATTEND Surgery
DX: T18.198A Other foreign object in esophagus causing other injury, initial encounter (principal); F29 Unspecified psychosis not due to a substance or known physiological condition; E78.00 Pure hypercholesterolemia, unspecified; I10 Essential (primary) hypertension; N40.0 Benign prostatic hyperplasia without lower urinary tract symptoms; E11.9 Type 2 diabetes mellitus without complications; Z79.84 Long term (current) use of oral hypoglycemic drugs; Z98.890 Other specified postprocedural states; Z88.0 Allergy status to penicillin; Z88.8 Allergy status to other drugs, medicaments and biological substances; Z79.899 Other long term (current) drug therapy; Z01.812 Encounter for preprocedural laboratory examination; Z86.16 Personal history of COVID-19; Z20.822 Contact with and (suspected) exposure to COVID-19
CPT/HCPCS: 00731; 71046; 71046-26; 82947; 94640; J0330; J2250; J2405; J2704; J3010; U0002